=== PATIENT | female | born 1930 | race Caucasian/White ===

== ENCOUNTER 2017-08-03 15:48 | Emergency (ER) | payer MEDICARE ==
[2017-08-03 15:50] VITALS: BP 163/75; PULSE 89; RESP 18; TEMP 98.3; O2SAT 94
[2017-08-03] MEDS ORDERED: CYCL1TAB29 PO (15:56)
[2017-08-03] MEDS ORDERED: AMLO5TAB2 PO (15:56)
[2017-08-03] MEDS ORDERED: VITATAB43 PO (15:56)
[2017-08-03] MEDS ORDERED: FERR325C PO (15:56)
[2017-08-03] MEDS ORDERED: HYDR-3516 PO (15:56)
[2017-08-03] MEDS ORDERED: ATEN50TA7 PO (15:56)
[2017-08-03] MEDS ORDERED: OMEP20TA PO (15:56)
[2017-08-03] MEDS ORDERED: SIMV20TA PO (15:56)
[2017-08-03] MEDS ORDERED: ULTR50TA5 PO (15:56)
[2017-08-03] MEDS ORDERED: FISHCAP4 PO (15:56)
[2017-08-03] MEDS ORDERED: CALC1TAB12 PO (15:56)
--- NOTE | 2017-08-03 16:07 | PD ---
HPI Chief Complaint: Pain: Acute or Chronic Time Seen by Provider: 16:05 Travel History International Travel<30 days: No Contact w/Intl Traveler<30days: No Traveled to known affect area: No History of Present Illness HPI This is an 87-year-old female with history of chronic back pain or presents via EMS for evaluation of back pain. She reports over the past 2 weeks she has had worsening spasming type pain in her mid and lower back. The pain is constant, worse with movement. Her primary care physician Dr. Cook prescribed her Lortab and Flexeril however the symptoms have persisted with minimal relief from these medications. She was referred to paint and table ed[facility] Dr. Malin, had an appointment today, but the pain was so severe that she decided to come here instead. She denies any injuries. Denies any chest pain, abdominal pain, incontinence, radicular symptoms. She reports that she had x- rays at her primary care physician's office one week ago and they were reportedly without acute abnormality. No other complaints. PFSH Past Medical History High Cholesterol: Yes GERD: Yes Hypertension: Yes Social History Alcohol Use: Yes (OCASSIONALY) Tobacco Use: No Substance Use: No Allergies-Medications (Allergen,Severity, Reaction): Coded Allergies: No Known Allergies (Verified Allergy, Unknown, 08/03/17) Reported Meds & Prescriptions Reported Meds & Active Scripts Active Walker/Adult/Folding (Device) 1 Mis Mis Ea .ROUTE DIRECTED Naproxen 500 Mg Tab 500 Mg PO BID 10 Days Lidocaine Patch 12 HR (Lidocaine) 5 % Patch 1 Patch TOPICAL DAILY PRN Remove patch after 12 hours Lortab (Hydrocodone-Acetaminophen) 5-325 Mg Tab 1 Tab PO Q6H PRN Reported Vitamin H61-Lrdbv Acid (Cobalamine Combinations) 500-400 Mcg Tab 1 Tab PO DAILY Iron (Ferrous Sulfate) 325 Mg Cap 325 Mg PO DAILY Calcium 500 +D (Calcium Carbonate-Cholecalciferol) 500-400 Mg-Unit Tab 1 Tab PO DAILY Fish Oil + D3 (Fish Oil-Cholecalciferol) 1,200-1,000 Mg-Unit Cap 1 Cap PO DAILY Omeprazole 20 Mg Tab 20 Mg PO DAILY Simvastatin 20 Mg Tab 20 Mg PO DAILY Amlodipine (Amlodipine Besylate) 5 Mg Tab 5 Mg PO DAILY Atenolol-Chlorthalidone 50-25 Mg Tab 0.5 Tab PO DAILY Ultram (Tramadol HCl) 50 Mg Tab 50 Mg PO Q4H PRN Flexeril (Cyclobenzaprine HCl) 10 Mg Tab 10 Mg PO TID Hydrocodone-Acetaminophen 5-325 mg Tab 1 Tab PO Q4H PRN Review of Systems Except as stated in HPI: all other systems reviewed are Neg Physical Exam Narrative GENERAL: Well-developed well-nourished female in no acute distress. SKIN: Warm and dry. HEAD: Atraumatic. Normocephalic. EYES: Pupils equal and round. No scleral icterus. No injection or drainage. ENT: No nasal bleeding or discharge. Mucous membranes pink and moist. NECK: Trachea midline. No JVD. CARDIOVASCULAR: Regular rate and rhythm. No murmur appreciated. RESPIRATORY: No accessory muscle use. Clear to auscultation. Breath sounds equal bilaterally. GASTROINTESTINAL: Abdomen soft, non-tender, nondistended. Hepatic and splenic margins not palpable. MUSCULOSKELETAL: No obvious deformities there is some tenderness to palpation of the paravertebral musculature of the thoracic and lumbar spine. The patient intends 5 out of 5 muscle strength in lower extremities bilaterally. There is no CVA tenderness. NEUROLOGICAL: Awake and alert. No obvious cranial nerve deficits. Motor grossly within normal limits. Normal speech. PSYCHIATRIC: Appropriate mood and affect; insight and judgment normal. Data Data Last Documented VS Vital Signs Date Time Temp Pulse Resp B/P (MAP) Pulse Ox O2 Delivery O2 Flow Rate FiO2 08/03/17 15:50 98.3 89 18 163/75 (104) 94 Orders Orders Complete Blood Count With Diff (08/03/17 16:14) Basic Metabolic Panel (Bmp) (08/03/17 16:14) Morphine Inj (Morphine Inj) (08/03/17 16:15) Ondansetron Inj (Zofran Inj) (08/03/17 16:15) Ketorolac Inj (Toradol Inj) (08/03/17 16:15) Iv Access Insert/Monitor (08/03/17 16:14) Ecg Monitoring (08/03/17 16:14) Sodium Chlor 0.9% 1000 Ml Inj (Ns 1000 M (08/03/17 16:39) Labs Laboratory Tests Test 08/03/17 16:20 White Blood Count 7.4 TH/MM3 Red Blood Count 2.96 MIL/MM3 Hemoglobin 9.0 GM/DL Hematocrit 26.9 % Mean Corpuscular Volume 91.1 FL Mean Corpuscular Hemoglobin 30.6 PG Mean Corpuscular Hemoglobin Concent 33.6 % Red Cell Distribution Width 12.6 % Platelet Count 166 TH/MM3 Mean Platelet Volume 8.8 FL CBC Comment AUTO DIFF Blood Urea Nitrogen 24 MG/DL Creatinine 0.98 MG/DL Random Glucose 113 MG/DL Calcium Level 9.2 MG/DL Sodium Level 130 MEQ/L Potassium Level 3.6 MEQ/L Chloride Level 96 MEQ/L Carbon Dioxide Level 24.7 MEQ/L Anion Gap 9 MEQ/L Estimat Glomerular Filtration Rate 54 ML/MIN MDM Medical Decision Making Medical Screen Exam Complete: Yes Emergency Medical Condition: Yes Medical Record Reviewed: Yes Differential Diagnosis Back spasm, compression fracture, AAA, muscle strain, renal stone Narrative Course 87-year-old female with chronic back pain presents with spasming type pain in her mid and lower back for the past 2 weeks, unrelieved with Lortab and Flexeril prescriptions given by her primary care physician. She went to [facility] and table [employer] Dr. Malin today however the pain was so severe that she decided to come here via EMS. Physical examination and history are reassuring. She has no lower extremity weakness. Her abdomen is soft and nontender. She reportedly had x-rays as an outpatient one week ago which revealed no acute abnormalities. The patient will be treated symptomatically and monitored closely. The patient's laboratory is been reviewed. Her hemoglobin is 9.0, she reports a history of chronic anemia and she has no symptoms to suggest acute anemia. Her sodium was 1:30, chloride 96, BUN 24 therefore 1 L IV normal saline has been ordered. Upon reexamination pain is significantly improved, currently 1 out of 10. At this point, plan is to immediately patient and if successful she will be discharged in the care of her family members with a short course of Lortab as well as Lidoderm patches, naproxen, Walker prescription. Recommend follow-up with her primary care physician, return for worsening symptoms. She is agreeable with this plan. Diagnosis Primary Impression: Back pain Qualified Codes: M54.9 - Dorsalgia, unspecified; G89.29 - Other chronic pain Additional Instructions: Medication as needed. Do not drive or drink alcohol when taking Lortab. Avoid strenuous activity. Follow-up with primary care physician next week. Return for any emergent medical conditions. Med/Other Pt SpecificInfo: Prescription(s) given Scripts Walker/Adult/Folding (Walker/Adult/Folding) 1 Mis Mis EA .ROUTE DIRECTED, #1 0 Refills Prov: Marcellus Greer MD 08/03/17 Naproxen (Naproxen) 500 Mg Tab 500 MG PO BID for 10 Days, #20 TAB 0 Refills Prov: Marcellus Greer MD 08/03/17 Lidocaine Patch 12 HR (Lidocaine Patch 12 HR) 5 % Patch 1 PATCH TOPICAL DAILY Y for PAIN, #1 BOX 1 Refill Remove patch after 12 hours Prov: Marcellus Greer MD 08/03/17 Hydrocodone-Acetaminophen (Lortab) 5-325 Mg Tab 1 TAB PO Q6H Y for PAIN, #15 TAB 0 Refills Prov: Marcellus Greer MD 08/03/17 Disposition: 01 DISCHARGE HOME Condition: Stable Kenneth Garcia Aug 03, 2017 16:07
[2017-08-03] MEDS ORDERED: ONDANSETRON HCL 4 MG/2 ML VIAL IV PUSH ONE (16:15)
[2017-08-03] MEDS ORDERED: MORPHINE SULFATE 4 MG/ML INJ IV PUSH ONE (16:15)
[2017-08-03] MEDS ORDERED: KETOROLAC TROMETHAMINE 30 MG/ML (IVP) VIAL IV PUSH ONE (16:15)
[2017-08-03 16:34] LABS: HEMATOCRIT 26.9 % (35.0-46.0); MEAN CELL VOLUME 91.1 FL (80.0-100.0); MEAN CORPUSCULAR HEMOGLOBIN 30.6 PG (27.0-34.0); MEAN CORPUSCULAR HGB CONC 33.6 % (32.0-36.0); PLATELET COUNT 166 TH/MM3 (150-450); RED BLOOD COUNT 2.96 MIL/MM3 (4.00-5.30); RED CELL DISTRIBUTION WIDTH 12.6 % (11.6-17.2); WHITE BLOOD COUNT 7.4 TH/MM3 (4.0-11.0)
[2017-08-03 16:35] LABS: POTASSIUM 3.6 MEQ/L (3.5-5.1)
[2017-08-03 16:38] LABS: BICARBONATE 24.7 MEQ/L (21.0-32.0)
[2017-08-03] MEDS ORDERED: SODIUM CHLOR 0.9% 1000 ML INJ 1,000 ML IV SCH (16:39)
[2017-08-03 16:45] LABS: HEMO FLAGS AUTO DIFF
[2017-08-03] MEDS ORDERED: LIDO1PAD52 TOPICAL (17:07)
[2017-08-03] MEDS ORDERED: HYDR-3533 PO (17:07)
[2017-08-03] MEDS ORDERED: WALKER/ADULT/FO1 MIS (17:07)
[2017-08-03] MEDS ORDERED: NAPR500T PO (17:07)
[2017-08-03 17:33] LABS: EOSINOPHILS 1 % (0-4); NEUTROPHIL # MANUAL DIFF 3.6 TH/MM3 (1.8-7.7); POLYS (SEG NEUTROPHILS) 48 % (16-70); WBC DIFF SAMPLE 100
[2017-08-03 17:35] LABS: OVALOCYTES 1+ (NORMAL)
[2017-08-03 17:36] LABS: PLATELET ESTIMATE SMEAR NORMAL (NORMAL); PLATELET MORPHOLOGY NORMAL (NORMAL); SCAN/DIFF FINAL DIFF MANUAL
== END 2017-08-03 17:36 | disposition home or self-care (01) ==
LOC: PHEFT 15:48 → PHED 17:36
DX: M54.9 Dorsalgia, unspecified (principal); G89.29 Other chronic pain; E78.00 Pure hypercholesterolemia, unspecified; I10 Essential (primary) hypertension; K21.9 Gastro-esophageal reflux disease without esophagitis
CPT/HCPCS: 80048; 85007; 85027; 96374; 96375; 99284; J1885; J2270; J2405; J7030

== ENCOUNTER 2017-08-07 17:03 | Inpatient (IN) | payer MEDICARE ==
[2017-08-07] VITALS (9 sets, daily range): BP systolic 78–125; BP diastolic 38–59; PULSE 79–99; RESP 16–20; TEMP 97.5–98.4; O2SAT 96–99
[~2017-08-07 17:03] MED LIST: AMLO5TAB2 PO; ATEN50TA7 PO; CALC1TAB12 PO; CYCL1TAB29 PO; FERR325C PO; FISHCAP4 PO; HYDR-3516 PO; HYDR-3533 PO; LIDO1PAD52 TOPICAL; NAPR500T PO; OMEP20TA PO; SIMV20TA PO; ULTR50TA5 PO; VITATAB43 PO; WALKER/ADULT/FO1 MIS
[2017-08-07] MEDS ORDERED: MORP1TAB24 PO (17:19)
[2017-08-07] MEDS ORDERED: SODIUM CHLOR 0.9% 1000 ML INJ 1,000 ML IV SCH (17:51)
--- NOTE | 2017-08-07 17:57 | PD ---
HPI Chief Complaint: Pain: Acute or Chronic Time Seen by Provider: 17:28 Travel History International Travel<30 days: No Contact w/Intl Traveler<30days: No Traveled to known affect area: No History of Present Illness HPI 87-year-old female with history of chronic back pain or presents via EMS for evaluation of back pain. Patient brought in for back pain however, niece is here and concerned about altered mental status and disorientation. Patient has apparently received 2 doses of morphine today. She complained of extreme pain and exhibited weakness as described by her niece today. Apparently she was not able to tell her niece the proper time or place. After interviewing the patient she was complaining of right hip pain which has been chronic previously. She could do not tell me when her last bowel movement was but she urinated once yesterday and none today. Niece tells me that she has not been eating or drinking properly. She denies fever, chills, chest pain, shortness of breath, jaw pain, or pain. She denies hematochezia, melena, hematemesis Her primary care physician Dr. Cook. [facility] Past Medical History High Cholesterol: Yes GERD: Yes Hypertension: Yes Social History Alcohol Use: Yes (OCASSIONALY) Tobacco Use: No Substance Use: No Allergies-Medications (Allergen,Severity, Reaction): Coded Allergies: No Known Allergies (Verified Allergy, Unknown, 08/07/17) Reported Meds & Prescriptions Reported Meds & Active Scripts Active Walker/Adult/Folding (Device) 1 Mis Mis Ea .ROUTE DIRECTED Naproxen 500 Mg Tab 500 Mg PO BID 10 Days Lidocaine Patch 12 HR (Lidocaine) 5 % Patch 1 Patch TOPICAL DAILY PRN Remove patch after 12 hours Lortab (Hydrocodone-Acetaminophen) 5-325 Mg Tab 1 Tab PO Q6H PRN Reported Morphine ER (Morphine Sulfate) 15 Mg Tab 15 Mg PO BID Vitamin E04-Osczd Acid (Cobalamine Combinations) 500-400 Mcg Tab 1 Tab PO DAILY Iron (Ferrous Sulfate) 325 Mg Cap 325 Mg PO DAILY Calcium 500 +D (Calcium Carbonate-Cholecalciferol) 500-400 Mg-Unit Tab 1 Tab PO DAILY Fish Oil + D3 (Fish Oil-Cholecalciferol) 1,200-1,000 Mg-Unit Cap 1 Cap PO DAILY Omeprazole 20 Mg Tab 20 Mg PO DAILY Simvastatin 20 Mg Tab 20 Mg PO DAILY Amlodipine (Amlodipine Besylate) 5 Mg Tab 5 Mg PO DAILY Atenolol-Chlorthalidone 50-25 Mg Tab 0.5 Tab PO DAILY Ultram (Tramadol HCl) 50 Mg Tab 50 Mg PO Q4H PRN Flexeril (Cyclobenzaprine HCl) 10 Mg Tab 10 Mg PO TID Hydrocodone-Acetaminophen 5-325 mg Tab 1 Tab PO Q4H PRN Review of Systems Except as stated in HPI: all other systems reviewed are Neg Physical Exam Narrative GENERAL: Well-developed well-nourished hard of hearing SKIN: Focused skin assessment warm/dry. HEAD: Atraumatic. Normocephalic. EYES: Pupils equal and round. No scleral icterus. No injection or drainage. ENT: No nasal bleeding or discharge. Mucous membranes: Tongue with white plaques, no other lesions present. dry mucous membranes NECK: Trachea midline. No JVD. CARDIOVASCULAR: Regular rate and rhythm. No murmur appreciated. RESPIRATORY: No accessory muscle use. Clear to auscultation. Breath sounds equal bilaterally. GASTROINTESTINAL: Abdomen soft, mildly tender to palpation , nondistended. Hepatic and splenic margins not palpable. MUSCULOSKELETAL: No obvious deformities. No clubbing. No cyanosis. No edema. TTP to right lumbar and SI joint NEUROLOGICAL: Awake and alert. No obvious cranial nerve deficits. Motor grossly within normal limits. Normal speech. Data Data Last Documented VS Vital Signs Date Time Temp Pulse Resp B/P (MAP) Pulse Ox O2 Delivery O2 Flow Rate FiO2 08/07/17 19:38 92 16 111/58 (75) 96 Room Air 08/07/17 17:10 98.4 Orders Orders Electrocardiogram (08/07/17 17:51) Complete Blood Count With Diff (08/07/17 17:51) Comprehensive Metabolic Panel (08/07/17 17:51) Creatine Kinase (Cpk) (08/07/17 17:51) Prothrombin Time / Inr (Pt) (08/07/17 17:51) Act Partial Throm Time (Ptt) (08/07/17 17:51) Troponin I (08/07/17 17:51) Urinalysis - C+S If Indicated (08/07/17 17:51) Chest, Single Ap (08/07/17 17:51) Blood Glucose (08/07/17 17:51) Ecg Monitoring (08/07/17 17:51) Iv Access Insert/Monitor (08/07/17 17:51) Oximetry (08/07/17 17:51) Sodium Chloride 0.9% Flush (Ns Flush) (08/07/17 18:00) Sodium Chlor 0.9% 1000 Ml Inj (Ns 1000 M (08/07/17 17:51) Drug Screen, Random Urine (08/07/17 17:51) Hip, Uni(Ap&Lat) W Ap Pelvis (08/07/17 ) Urinary Catheter Insert/Apply (08/07/17 19:52) Admit Order (Ed Use Only) (08/07/17 ) Ct Brain W/O Iv Contrast(Rout) (08/07/17 ) Ct Abd/Pel W/O Iv Contrast (08/07/17 ) Labs Laboratory Tests Test 08/07/17 15:30 08/07/17 19:33 White Blood Count 14.4 TH/MM3 Red Blood Count 2.55 MIL/MM3 Hemoglobin 8.0 GM/DL Hematocrit 22.9 % Mean Corpuscular Volume 89.9 FL Mean Corpuscular Hemoglobin 31.3 PG Mean Corpuscular Hemoglobin Concent 34.8 % Red Cell Distribution Width 12.9 % Platelet Count 160 TH/MM3 Mean Platelet Volume 9.0 FL CBC Comment AUTO DIFF Differential Total Cells Counted 100 Neutrophils % (Manual) 64 % Lymphocytes % 14 % Monocytes % 22 % Neutrophils # (Manual) 9.2 TH/MM3 Differential Comment FINAL DIFF MANUAL Atypical Lymphocytes % Platelet Estimate LOW Platelet Morphology Comment NORMAL Red Cell Morphology Comment NORMAL Prothrombin Time 11.5 SEC Prothromb Time International Ratio 1.0 RATIO Activated Partial Thromboplast Time 35.8 SEC Blood Urea Nitrogen 79 MG/DL Creatinine 2.90 MG/DL Random Glucose 78 MG/DL Total Protein 6.9 GM/DL Albumin 3.0 GM/DL Calcium Level 8.6 MG/DL Alkaline Phosphatase 91 U/L Aspartate Amino Transf (AST/SGOT) 12 U/L Alanine Aminotransferase (ALT/SGPT) 12 U/L Total Bilirubin 0.8 MG/DL Sodium Level 134 MEQ/L Potassium Level 3.6 MEQ/L Chloride Level 100 MEQ/L Carbon Dioxide Level 19.8 MEQ/L Anion Gap 14 MEQ/L Estimat Glomerular Filtration Rate 15 ML/MIN Total Creatine Kinase 57 U/L Troponin I LESS THAN 0.02 NG/ML Urine Collection Type CATH Urine Color ATUL Urine Turbidity SLIGHT Urine pH 5.0 Urine Specific [place] 1.019 Urine Protein 30 mg/dL Urine Glucose (UA) NEG mg/dL Urine Ketones 15 mg/dL Urine Occult Blood SMALL Urine Nitrite NEG Urine Bilirubin NEG Urine Leukocyte Esterase TRACE Urine RBC 4-9 /hpf Urine WBC 0-2 /hpf Urine Squamous Epithelial Cells 0-5 /hpf Urine Amorphous Sediment MOD Urine Hyaline Casts 6-9 /lpf Urine Coarse Granular Casts 3-5 /lpf Urine Mucus MOD /lpf Microscopic Urinalysis Comment CATH-CULT NOT IND Urine Opiates Screen POS Urine Barbiturates Screen NEG Urine Amphetamines Screen NEG Urine Benzodiazepines Screen NEG Urine Cocaine Screen NEG Urine Cannabinoids Screen NEG MDM Medical Decision Making Medical Screen Exam Complete: Yes Emergency Medical Condition: Yes Differential Diagnosis Altered mental status: Drug induced versus sepsis versus dehydration Narrative Course 87-year-old female brought by EMS for back pain however she is being evaluated for altered mental status. Niece has been available to answer questions today. BP improved with fluid challenge 1000cc. EKG did not demonstrate an acute process. Images report not available as of admission time. Labs: Leukocyte esterase, RBCs, in urine., RYLAN, anemia (Chronic?) Oral candidiasis found incidentally upon exam. Pt has acute kidney injury, altered mental status and will be admitted. I discussed this case with my attending, Dr Richards. I spoke with Dr. Cook, her PCP, and he knows this patient well. He agrees to admit pt to service. Diagnosis Primary Impression: Oral candidiasis Additional Impressions: Acute kidney injury superimposed on chronic kidney disease Anemia Qualified Codes: D64.9 - Anemia, unspecified Altered mental status Qualified Codes: R41.82 - Altered mental status, unspecified Intractable low back pain Admitting Information Admitting Physician Requests: Admit Marilee David Aug 07, 2017 17:57
[2017-08-07] MEDS ORDERED: SODIUM CHLORIDE 0.9% FLUSH 5 ML FLUSH IV FLUSH PRN (18:00)
[2017-08-07 18:11] LABS: HEMATOCRIT 22.9 % (35.0-46.0); MEAN CELL VOLUME 89.9 FL (80.0-100.0); MEAN CORPUSCULAR HEMOGLOBIN 31.3 PG (27.0-34.0); MEAN CORPUSCULAR HGB CONC 34.8 % (32.0-36.0); PLATELET COUNT 160 TH/MM3 (150-450); RED BLOOD COUNT 2.55 MIL/MM3 (4.00-5.30); RED CELL DISTRIBUTION WIDTH 12.9 % (11.6-17.2); WHITE BLOOD COUNT 14.4 TH/MM3 (4.0-11.0)
[2017-08-07 18:23] LABS: POTASSIUM 3.6 MEQ/L (3.5-5.1); SODIUM (NA) 134 MEQ/L (136-145)
[2017-08-07 18:24] LABS: CHLORIDE 100 MEQ/L (98-107)
[2017-08-07 18:27] LABS: ANION GAP 14 MEQ/L (5-15); BICARBONATE 19.8 MEQ/L (21.0-32.0)
[2017-08-07 18:28] LABS: BLOOD UREA NITROGEN 79 MG/DL (7-18)
[2017-08-07 18:29] LABS: APTT (PATIENT) 35.8 SEC (24.3-30.1); PROTHROMBIN TIME - PATIENT 11.5 SEC (9.8-11.6)
[2017-08-07 18:30] LABS: ALT (GPT) 12 U/L (10-53); AST (GOT) 12 U/L (15-37)
[2017-08-07 18:31] LABS: GLOMERULAR FILTRATION RATE 15 ML/MIN (>89)
[2017-08-07 18:32] LABS: TOTAL BILIRUBIN ADULT 0.8 MG/DL (0.2-1.0)
[2017-08-07 18:33] LABS: ALKALINE PHOSPHATASE 91 U/L (45-117)
[2017-08-07 18:38] LABS: HEMO FLAGS AUTO DIFF
[2017-08-07 18:45] LABS: CREATINE KINASE 57 U/L (26-192)
[2017-08-07 19:22] LABS: NEUTROPHIL # MANUAL DIFF 9.2 TH/MM3 (1.8-7.7); POLYS (SEG NEUTROPHILS) 64 % (16-70); WBC DIFF SAMPLE 100
[2017-08-07 19:23] LABS: PLATELET ESTIMATE SMEAR LOW (NORMAL); PLATELET MORPHOLOGY NORMAL (NORMAL); SCAN/DIFF FINAL DIFF MANUAL
[2017-08-07 19:39] LABS: BLOOD, URINE SMALL (NEG); GLUCOSE,URINE NEG (NEG); KETONE, URINE 15 mg/dL (NEG); NITRITE,URINE NEG (NEG)
[2017-08-07 19:56] LABS: METHOD OF COLLECTION CATH; URINE COLOR AMBER (YELLW/STRAW)
[2017-08-07 19:57] LABS: MUCUS URINE MOD /lpf (OCC)
[2017-08-07 19:58] LABS: COMMENT (UR) CATH-CULT NOT IND; CULTURE IF INDICATED CATH CULTURE NOT IND; SQUAMOUS EPITHELIAL CELL URINE 0-5 /hpf (0-5); WBC, URINE 0-2 /hpf (0-5)
--- NOTE | 2017-08-07 21:17 | HHI.HP ---
HPI Service [facility] Hospitalists Primary Care Physician Noe Cook MD, PhD Admission Diagnosis RYLAN, Altered mental status. Chief Complaint: Low back pain, general weakness, altered mentation Travel History International Travel<30 Days: No Contact w/Intl Traveler <30 Da: No Traveled to Known Affected Are: No History of Present Illness 87-year-old female well-known to me with history of chronic low back pain presents via EMS for evaluation of back pain. Patient brought in primarily for back pain, however, niece is here and concerned about altered mental status and disorientation. Patient has apparently received 2 doses of morphine extended release 15 mg today which was started yesterday by me due to intractable back pain. She was in her pain management doctor's office this past Sunday and complained of extreme pain in lower back. From there she was transported to the ER where she received IV morphine with some relief. Niece reports that she has not been eating or drinking properly over the last few days due to pain and just "sitting on the couch". She denies fever, chills, chest pain, shortness of breath, jaw pain. She denies hematochezia, melena, hematemesis. She has been taking some naproxen at home. 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 Her primary care physician Dr. Cook. ER evaluation noted for somewhat low systolic pressures in the 80s which have responded to IV fluid bolus and are now in the 110s. Patient initially was somewhat slow to respond but since her pressures are improving with IV fluid and her mentation is also improving. Lab evaluation noted for hemoglobin of 8, white blood cell count 14,000, BUNs 79 and creatinine of 2.9. Her baseline creatinine is usually around 0.9. Baseline hemoglobin is around 10-1/2. Urinalysis noted for some blood and mucus but no obvious bacteria. Imaging is pending. Review of Systems ROS Limitations: Clinical Condition, Altered Mental Status Constitutional: COMPLAINS OF: Fatigue, Dizziness Respiratory: DENIES: Apneas, Cough, Snoring, Wheezing, Hemoptysis, Sputum production, Shortness of breath Cardiovascular: DENIES: Chest pain, Palpitations, Syncope, Dyspnea on Exertion , PND, Lower Extremity Edema, Orthopnea, Claudication Gastrointestinal: DENIES: Abdominal pain, Black stools, Bloody stools, BRB per rectum, Constipation, Diarrhea, GERD, Nausea, Reflux, Vomiting, Difficulty Swallowing, Anorexia, See HPI Musculoskeletal: COMPLAINS OF: Joint pain, Back pain Neurologic: COMPLAINS OF: Poor Balance Past Family Social History Past Medical History Chronic anemia Aortic stenosis Dunn's esophagus Chronic disease stage III with baseline creatinine usually around 0.9 Gastric ulcer Hyperlipidemia Hypertension Lumbar degenerative disc disease with spinal stenosis Osteoporosis B12 deficiency Past Surgical History Colonoscopy and EGD done in July 2016 Reported Medications Walker/Adult/Folding (Device) 1 Mis Mis Ea .ROUTE DIRECTED Naproxen 500 Mg Tab 500 Mg PO BID 10 Days Lidocaine Patch 12 HR (Lidocaine) 5 % Patch 1 Patch TOPICAL DAILY PRN Remove patch after 12 hours Morphine ER (Morphine Sulfate) 15 Mg Tab 15 Mg PO BID Vitamin K51-[id number] Acid (Cobalamine Combinations) 500-400 Mcg Tab 1 Tab PO DAILY Iron (Ferrous Sulfate) 325 Mg Cap 325 Mg PO DAILY Calcium 500 +D (Calcium Carbonate-Cholecalciferol) 500-400 Mg-Unit Tab 1 Tab PO DAILY Fish Oil + D3 (Fish Oil-Cholecalciferol) 1,200-1,000 Mg-Unit Cap 1 Cap PO DAILY Omeprazole 20 Mg Tab 20 Mg PO DAILY Simvastatin 20 Mg Tab 20 Mg PO DAILY Amlodipine (Amlodipine Besylate) 5 Mg Tab 5 Mg PO DAILY Atenolol-Chlorthalidone 50-25 Mg Tab 0.5 Tab PO DAILY Flexeril (Cyclobenzaprine HCl) 10 Mg Tab 10 Mg PO TID Hydrocodone-Acetaminophen 5-325 mg Tab 1 Tab PO Q4H PRN Allergies: Coded Allergies: No Known Allergies (Verified Allergy, Unknown, 08/07/17) Family History Noncontributory Social History She drinks alcohol usually one beer per day but has not been drinking much of any fluid in the last few days No tobacco since 1973 prior "one pack per day for 20 years The window since 1983 and lives alone. She has family in the area that check on her daily. 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 Lying flat in exam bed. She does grimace if I ask her to turn or move to one side. She recognizes me but is a bit confused about events leading up to her ER visit. SKIN: Cool and dry. HEAD: Atraumatic. Normocephalic. No temporal or scalp tenderness. EYES: Pupils equal round and reactive. Extraocular motions intact. No scleral icterus. No injection or drainage. ENT: Nose without bleeding, purulent drainage or septal hematoma. Airway patent. NECK: Trachea midline. No JVD or lymphadenopathy. Supple, nontender, no meningeal signs. CARDIOVASCULAR: Regular rate and rhythm without gallops or rubs. 2/6 systolic ejection murmur best heard in aortic space. RESPIRATORY: Clear to auscultation. Breath sounds equal bilaterally. No wheezes , rales, or rhonchi. GASTROINTESTINAL: Abdomen soft, non-tender, nondistended. No hepato-splenomegaly , or palpable masses. No guarding. MUSCULOSKELETAL: Extremities without clubbing, cyanosis, or edema. Positive straight leg test on the left. Tenderness to palpation over right trochanteric bursa. No calf tenderness. NEUROLOGICAL: Awake and alert. Cranial nerves II through XII intact. Motor and sensory grossly within normal limits. Five out of 5 muscle strength in all muscle groups. Speech somewhat delayed. Laboratory Laboratory Tests Test 08/07/17 15:30 08/07/17 19:33 White Blood Count 14.4 Red Blood Count 2.55 Hemoglobin 8.0 Hematocrit 22.9 Mean Corpuscular Volume 89.9 Mean Corpuscular Hemoglobin 31.3 Mean Corpuscular Hemoglobin Concent 34.8 Red Cell Distribution Width 12.9 Platelet Count 160 Mean Platelet Volume 9.0 CBC Comment AUTO DIFF Differential Total Cells Counted 100 Neutrophils % (Manual) 64 Lymphocytes % 14 Monocytes % 22 Neutrophils # (Manual) 9.2 Differential Comment FINAL DIFF MANUAL Atypical Lymphocytes Platelet Estimate LOW Platelet Morphology Comment NORMAL Red Cell Morphology Comment NORMAL Prothrombin Time 11.5 Prothromb Time International Ratio 1.0 Activated Partial Thromboplast Time 35.8 Blood Urea Nitrogen 79 Creatinine 2.90 Random Glucose 78 Total Protein 6.9 Albumin 3.0 Calcium Level 8.6 Alkaline Phosphatase 91 Aspartate Amino Transf (AST/SGOT) 12 Alanine Aminotransferase (ALT/SGPT) 12 Total Bilirubin 0.8 Sodium Level 134 Potassium Level 3.6 Chloride Level 100 Carbon Dioxide Level 19.8 Anion Gap 14 Estimat Glomerular Filtration Rate 15 Total Creatine Kinase 57 Troponin I LESS THAN 0.02 Urine Collection Type CATH Urine Color ATUL Urine Turbidity SLIGHT Urine pH 5.0 Urine Specific [place] 1.019 Urine Protein 30 Urine Glucose (UA) NEG Urine Ketones 15 Urine Occult Blood SMALL Urine Nitrite NEG Urine Bilirubin NEG Urine Leukocyte Esterase TRACE Urine RBC 4-9 Urine WBC 0-2 Urine Squamous Epithelial Cells 0-5 Urine Amorphous Sediment MOD Urine Hyaline Casts 6-9 Urine Coarse Granular Casts 3-5 Urine Mucus MOD Microscopic Urinalysis Comment CATH-CULT NOT IND Urine Opiates Screen POS Urine Barbiturates Screen NEG Urine Amphetamines Screen NEG Urine Benzodiazepines Screen NEG Urine Cocaine Screen NEG Urine Cannabinoids Screen NEG Result Diagram: 08/07/17 15308/07/171529 Caprini VTE Risk Assessment Caprini VTE Risk Assessment: Mod/High Risk (score >= 2) VTE Pharm Contraindication: High risk for bleeding Caprini Risk Assessment Model Point Value = 1 Point Value = 2 Point Value = 3 Point Value = 5 Age 41-60 Minor surgery BMI > 25 kg/m2 Swollen legs Varicose veins or History of unexplained or recurrent spontaneous Oral contraceptives or hormone replacement Sepsis (< 1 month) Serious lung disease, including pneumonia (< 1 month) Abnormal pulmonary function Acute myocardial infarction Congestive heart failure (< 1 month) History of inflammatory bowel disease Medical patient at bed rest Age 61-74 Arthroscopic surgery Major open surgery (> 45 min) Laparoscopic surgery (> 45 min) Malignancy Confined to bed (> 72 hours) Immobilizing plaster cast Central venous access Age >= 75 History of VTE Family history of VTE Factor V Leiden Prothrombin [id number] Lupus anticoagulant Anticardiolipin antibodies Elevated serum homocysteine Heparin-induced thrombocytopenia Other congenital or acquired thrombophilia Stroke (< 1 month) Elective arthroplasty Hip, pelvis, or leg fracture Acute spinal cord injury (< 1 month) Prophylaxis Regimen Total Risk Factor Score Risk Level Prophylaxis Regimen 0-1 Low Early ambulation 2 Moderate Order ONE of the following: *Sequential Compression Device (SCD) *Heparin 5000 units SQ BID 3-4 Higher Order ONE of the following medications: *Heparin 5000 units SQ TID *Enoxaparin/Lovenox 40 mg SQ daily (WT < 150 kg, CrCl > 30 mL/min) *Enoxaparin/Lovenox 30 mg SQ daily (WT < 150 kg, CrCl > 10-29 mL/min) *Enoxaparin/Lovenox 30 mg SQ BID (WT < 150 kg, CrCl > 30 mL/min) AND/OR *Sequential Compression Device (SCD) 5 or more Highest Order ONE of the following medications: *Heparin 5000 units SQ TID (Preferred with Epidurals) *Enoxaparin/Lovenox 40 mg SQ daily (WT < 150 kg, CrCl > 30 mL/min) *Enoxaparin/Lovenox 30 mg SQ daily (WT < 150 kg, CrCl > 10-29 mL/min) *Enoxaparin/Lovenox 30 mg SQ BID (WT < 150 kg, CrCl > 30 mL/min) AND *Sequential Compression Device (SCD) Assessment and Plan Problem List: (1) Altered mental status ICD Codes: R41.82 - Altered mental status, unspecified Plan: Likely multifactorial associated with dehydration, pain medication and azotemia. Her mental status is improving with hydration. We'll continue hydration. CT brain pending. (2) Intractable low back pain ICD Codes: M54.5 - Low back pain Status: Acute Plan: Patient has chronic low back pain but over the last few weeks and it has been worsening. She has failed outpatient tramadol, IM Toradol, Lortab. Morphine extended release was therefore added yesterday and likely is partly contributing to her altered mentation and low blood pressure. We'll attempt to manage her pain as best we can without contributing to further decline in her mental status or vascular support. Patient reports that pain is tolerable as long as she is not twisting or moving. Twisting or moving motions tend to cause spasm. We'll check MRI of L-spine (3) Lumbar spinal stenosis ICD Codes: M48.061 - Spinal stenosis, lumbar region without neurogenic claudication Status: Chronic Plan: As above. We'll attempt to manage pain. No significant focal weakness of lower extremities. (4) Hypertension ICD Codes: I10 - Essential (primary) hypertension Status: Chronic Plan: Hold medication at this point. (5) Anemia ICD Codes: D64.9 - Anemia, unspecified Status: Chronic Plan: Baseline hemoglobin generally around 10.5. 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 She notes that she has used naproxen at home and given her mentation she may of been taking more than she is reporting. We'll follow hemoglobin closely. Vitals stable at this point. (6) Acute kidney injury superimposed on chronic kidney disease ICD Codes: N17.9 - Acute kidney failure, unspecified; N18.9 - Chronic kidney disease, unspecified Status: Acute Plan: Creatinine generally around 0.9. Provide IV fluids. Recheck tomorrow morning. Code Status full Discussed Condition With patient, her niece, ER provider Physician Certification 2 Midnight Certification Type: Admission for Inpatient Services Order for Inpatient Services The services are ordered in accordance with Medicare regulations or non- Medicare payer requirements, as applicable. In the case of services not specified as inpatient-only, they are appropriately provided as inpatient services in accordance with the 2-midnight benchmark. Estimated LOS (days): 3 days is the estimated time the patient will need to remain in the hospital, assuming treatment plan goals are met and no additional complications. Post-Hospital Plan: Not yet determined Problem Qualifiers (1) Altered mental status: Qualified Codes: R41.0 - Disorientation, unspecified (2) Hypertension: Qualified Codes: I10 - Essential (primary) hypertension (3) Anemia: Noe Cook MD PhD Aug 07, 2017 21:17
--- NOTE | 2017-08-07 21:20 | RADRPT ---
EXAM DATE/TIME: 08/07/2017 20:21 [facility] COMPARISON: No previous studies available for comparison. INDICATIONS : Weakness. MEDICAL HISTORY : Hypertension. Hypercholesterolemia. SURGICAL HISTORY : None. ENCOUNTER: Initial ACUITY: 3 days PAIN SCORE: 0/10 LOCATION: Bilateral chest FINDINGS: A single view of the chest demonstrates the lungs to be symmetrically aerated without evidence of mas s, infiltrate or effusion. The cardiomediastinal contours are unremarkable. Osseous structures are intact. CONCLUSION: No acute disease. Sg Abraham MD on August 07, 2017 at 21:18 Board Certified Radiologist. This report was verified electronically.
--- NOTE | 2017-08-07 21:21 | RADRPT ---
EXAM DATE/TIME: 08/07/2017 20:21 [facility] COMPARISON: No previous studies available for comparison. INDICATIONS : Right hip pain since being transferred by [facility] tonight. MEDICAL HISTORY : Hypertension. Hypercholesterolemia. SURGICAL HISTORY : None. ENCOUNTER: Initial ACUITY: 1 day PAIN SCORE: 6/10 LOCATION: Right hip. FINDINGS: Examination of the right hip was performed with AP Pelvis. The primary and secondary trabecular hernando colleen of the femoral neck is intact. The hip joint is of normal width without significant sclerosis or bony hypertrophy. The acetabulum is grossly intact. There is degenerative change in the lower lumba r spine. CONCLUSION: No acute abnormality is seen. Sg Abraham MD on August 07, 2017 at 21:19 Board Certified Radiologist. This report was verified electronically.
[2017-08-07] MEDS ORDERED: NS + KCL 20 MEQ INJ 1,000 ML IV SCH (21:30)
[2017-08-07] MEDS ORDERED: SODIUM CHLORID 0.9% 500 ML INJ 500 ML IV ONE (21:30)
--- NOTE | 2017-08-07 21:37 | RADRPT ---
EXAM DATE/TIME: 08/07/2017 20:43 [facility] COMPARISON: No previous studies available for comparison. INDICATIONS : Altered mental status. Weakness. RADIATION DOSE: 62.63 CTDIvol (mGy) MEDICAL HISTORY : Hypertension. SURGICAL HISTORY : None. ENCOUNTER: Initial ACUITY: 1 day PAIN SCALE: 0/10 LOCATION: cranial TECHNIQUE: Multiple contiguous axial images were obtained of the head. Using automated exposure control and adj ustment of the mA and/or kV according to patient size, radiation dose was kept as low as reasonably a chievable to obtain optimal diagnostic quality images. DICOM format image data is available electro nically for review and comparison. FINDINGS: CEREBRUM: The ventricles are normal for age. No evidence of midline shift, mass lesion, hemorrhage or acute in farction. No extra-axial fluid collections are seen. There is prominent calcification along the falx . Incidental calcifications are seen in the basal ganglia. POSTERIOR FOSSA: The cerebellum and brainstem are intact. The 4th ventricle is midline. The cerebellopontine angle i s unremarkable. EXTRACRANIAL: The visualized portion of the orbits is intact. There is focal right sphenoid sinus disease. SKULL: The calvaria is intact. No evidence of skull fracture. CONCLUSION: 1. No intracranial abnormality is seen. 2. Focal right sphenoid sinus disease. Sg Abraham MD on August 07, 2017 at 21:34 Board Certified Radiologist. This report was verified electronically.
[2017-08-07] MEDS: PANTOPRAZOLE SOD 40 MG DELAYED RELEASE TAB PO SCH (21:47)
--- NOTE | 2017-08-07 22:21 | RADRPT ---
EXAM DATE/TIME: 08/07/2017 20:46 [facility] COMPARISON: No previous studies available for comparison. INDICATIONS : Lower back pain. ORAL CONTRAST: No oral contrast ingested. RADIATION DOSE: 15.28 CTDIvol (mGy) MEDICAL HISTORY : Hypertension. Gastroesophageal reflux disease. SURGICAL HISTORY : None. ENCOUNTER: Initial ACUITY: 1 day PAIN SCALE: 8/10 LOCATION: Bilateral lower quadrant posterior TECHNIQUE: Volumetric scanning of the abdomen and pelvis was performed. Using automated exposure control and adjustment of the mA and/or kV according to patient size, radiation dose was kept as low as reasonably achievable to obtain optimal diagnostic quality images. DICOM format image data is av ailable electronically for review and comparison. FINDINGS: There is a moderate hiatal hernia. There does appear to be a portion of this that appea rs paraesophageal. Calcified granulomas are seen in the spleen. The liver is unremarkable. The gal lbladder is distended. No calcified gallstones are seen. Biliary ductal dilatation is not clearly i dentified. The pancreas and adrenal glands are unremarkable. The kidneys appear grossly unremarkabl e. No renal stones or hydronephrosis is seen. Atherosclerotic calcifications are seen throughout th e arterial system. There is no aneurysm. There are scattered colonic diverticula. The patient does have a left inguinal hernia containing a short segment of the proximal sigmoid colon. There is some perinephric stranding being more prominent on the right. The right stranding extends into the right paracolic gutter region and abuts the gallbladder. The pelvic structures appear grossly intact. There is some mild increased density at the posterior l eft lung base likely related to atelectasis or minimal consolidation. There is degenerative change i n the lumbar spine. There is a fracture deformity at the superior aspect of the T11 vertebral body. There also appear to be more chronic fracture deformities at the inferior aspect of L3 and the superi or and inferior aspects of L4 with loss of height at these regions. CONCLUSION: 1. Left inguinal hernia containing a small segment of the proximal sigmoid colon. Significant bowel dilatation is not seen. 2. Fracture deformity at the superior aspect of T11. This appears likely either acute or subacute. There do appear to be more chronic changes at the L3 and L4 levels as described above. 3. Moderate hiatal hernia with at least a portion of this being a paraesophageal hiatal hernia. 4. Induration seen in the perinephric space especially on the right. Some of this does abut the dist ended gallbladder. This can be correlated with the patient's symptoms. 5. Calcified granulomas in the spleen. Sg Abraham MD on August 07, 2017 at 21:50 Board Certified Radiologist. This report was verified electronically.
[2017-08-08 04:00] VITALS: BP 134/61; PULSE 105; RESP 20; TEMP 97.9; O2SAT 97
[2017-08-08] MEDS: MORPHINE SULFATE 4 MG/ML INJ IV PUSH PRN ×2 (05:28→19:28)
[2017-08-08] MEDS ORDERED: LORazepam 2 MG/ML VIAL IV PUSH SCH (06:00)
--- NOTE | 2017-08-08 06:33 | HHI.PR ---
Subjective Remarks Much more alert this morning. Oriented to person place and able to provide more history regarding the events leading to her admission. Patient reports she's had some difficulties urinating the last week or so prior to admission. She is not sure when she had her last bowel movement reports that in the last 2-3 days at home. Denies dysuria or hematuria but does have urgency. Despite the urgency still has difficulty urinating. It is noted she required insertion of bladder catheter twice with most recent insertion resulting in over 1600 cc of urine produced. Objective Vitals Vital Signs Date Time Temp Pulse Resp B/P (MAP) Pulse Ox O2 Delivery O2 Flow Rate FiO2 08/08/17 04:00 97.9 105 20 134/61 (85) 97 08/07/17 23:30 99 08/07/17 23:20 97.5 99 20 117/59 (78) 96 08/07/17 23:01 08/07/17 21:58 96 16 125/59 (81) 99 Room Air 08/07/17 19:38 92 16 111/58 (75) 96 Room Air 08/07/17 19:10 89 16 102/52 (69) 97 Room Air 08/07/17 18:59 86 18 89/38 (55) 08/07/17 18:29 85 18 78/41 (53) 08/07/17 18:09 96 08/07/17 17:10 98.4 79 20 107/59 (75) 97 GENERAL: Awake and alert. More oriented. More interactive. No acute distress. SKIN: Warm and dry. Well-healed Postsurgical scars anterior bilateral knees. HEAD: Normocephalic. EYES: No scleral icterus. No injection or drainage. NECK: Supple, trachea midline. No JVD or lymphadenopathy. CARDIOVASCULAR: Regular rate and rhythm without gallops or rubs. 2/6 systolic ejection murmur best heard in aortic space. RESPIRATORY: Breath sounds equal bilaterally. No accessory muscle use. GASTROINTESTINAL: Abdomen soft, non-tender, nondistended. Bowel sounds normal. MUSCULOSKELETAL: No cyanosis, or edema. Moves all extremities to command. Positive straight leg test on the left. DTRs 1+ at bilateral knees. Right lower extremity strength 5 out of 5, left lower extremity dorsiflexion and plantar flexion 5 out of 5, left lower extremity hip flexion 4.5 out of 5. BACK: Paralumbar spasm noted slightly more on the left. No CVA tenderness. Result Diagram: 08/07/17 2340 08/07/17 1530 Imaging Last 72 hours Impressions Chest X-Ray 08/07/17 1751 Signed Impressions: Service Date/Time: Monday, August 07, 2017 20:21 - CONCLUSION: No acute disease. Sg Abraham MD Hip and Pelvis X-Ray 08/07/17 0000 Signed Impressions: Service Date/Time: Monday, August 07, 2017 20:21 - CONCLUSION: No acute abnormality is seen. Sg Abraham MD Head CT 08/07/17 0000 Signed Impressions: Service Date/Time: Monday, August 07, 2017 20:43 - CONCLUSION: 1. No intracranial abnormality is seen. 2. Focal right sphenoid sinus disease. Sg Abraham MD Abdomen/Pelvis CT 08/07/17 0000 Signed Impressions: Service Date/Time: Monday, August 07, 2017 20:46 - CONCLUSION: 1. Left inguinal hernia containing a small segment of the proximal sigmoid colon. Significant bowel dilatation is not seen. 2. Fracture deformity at the superior aspect of T11. This appears likely either acute or subacute. There do appear to be more chronic changes at the L3 and L4 levels as described above. 3. Moderate hiatal hernia with at least a portion of this being a paraesophageal hiatal hernia. 4. Induration seen in the perinephric space especially on the right. Some of this does abut the distended gallbladder. This can be correlated with the patient's symptoms. 5. Calcified granulomas in the spleen. Sg Abraham MD Urinary Catheter: No Vascular Central Line Catheter: No A/P Problem List: (1) Altered mental status ICD Codes: R41.82 - Altered mental status, unspecified Plan: Likely multifactorial associated with dehydration, pain medication and azotemia. No acute findings on CT brain. Mentation much improved this morning. (2) Intractable low back pain ICD Codes: M54.5 - Low back pain Status: Acute Plan: Patient has chronic low back pain but over the last few weeks and it has been worsening. She has failed outpatient tramadol, IM Toradol, Lortab. Morphine extended release was therefore added August 06 and likely is partly contributing to her altered mentation and low blood pressure. Twisting or moving motions tend to cause spasm. She has history of spinal stenosis and some apparent urinary retention. DTRs symmetric in lower extremities. We'll check MRI of L-spine (3) Lumbar spinal stenosis ICD Codes: M48.061 - Spinal stenosis, lumbar region without neurogenic claudication Status: Chronic Plan: As above. We'll attempt to manage pain. No significant focal weakness of lower extremities. (4) Hypertension ICD Codes: I10 - Essential (primary) hypertension Status: Chronic Plan: Patient had hypotension initially. This is improving with IV fluids. We'll continue holding medication this point may need to resume. (5) Anemia ICD Codes: D64.9 - Anemia, unspecified Status: Chronic Plan: Baseline hemoglobin generally around 10.5. 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 She notes that she has used naproxen at home and given her presenting mentation she may have been taking more than she is reporting. We'll follow hemoglobin closely. Vitals stable at this point. Repeat hemoglobin last night stable. (6) Acute kidney injury superimposed on chronic kidney disease ICD Codes: N17.9 - Acute kidney failure, unspecified; N18.9 - Chronic kidney disease, unspecified Status: Acute Plan: Creatinine generally around 0.9. Provide IV fluids. Repeat labs pending. We'll insert Taylor given her bladder retention which may be causing obstructive uropathy. Discharge Planning Hopefully discharge in 1-2 days. Will depend on her clinical progression as well as MRI result. Problem Qualifiers (1) Altered mental status: Qualified Codes: R41.0 - Disorientation, unspecified (2) Hypertension: Qualified Codes: I10 - Essential (primary) hypertension (3) Anemia: Noe Cook MD PhD Aug 08, 2017 06:33
[2017-08-08 06:59] LABS: HEMATOCRIT 24.9 % (35.0-46.0); MEAN CELL VOLUME 92.4 FL (80.0-100.0); MEAN CORPUSCULAR HEMOGLOBIN 31.2 PG (27.0-34.0); MEAN CORPUSCULAR HGB CONC 33.7 % (32.0-36.0); PLATELET COUNT 171 TH/MM3 (150-450); RED BLOOD COUNT 2.69 MIL/MM3 (4.00-5.30); WHITE BLOOD COUNT 14.1 TH/MM3 (4.0-11.0)
[2017-08-08 07:04] LABS: CHLORIDE 103 MEQ/L (98-107); POTASSIUM 3.6 MEQ/L (3.5-5.1); SODIUM (NA) 136 MEQ/L (136-145)
[2017-08-08 07:11] LABS: ANION GAP 15 MEQ/L (5-15); BICARBONATE 17.6 MEQ/L (21.0-32.0)
[2017-08-08 07:19] LABS: HEMO FLAGS AUTO DIFF
[2017-08-08 07:23] LABS: ALKALINE PHOSPHATASE 95 U/L (45-117); ALT (GPT) 14 U/L (10-53); AST (GOT) 16 U/L (15-37); BLOOD UREA NITROGEN 64 MG/DL (7-18); GLOMERULAR FILTRATION RATE 28 ML/MIN (>89); TOTAL BILIRUBIN ADULT 0.7 MG/DL (0.2-1.0)
[2017-08-08] MEDS ORDERED: POTASSIUM CHLORIDE 10 MEQ CONTROLLED RELEASE TAB PO ONE (07:45)
[2017-08-08 08:00] VITALS: BP 130/72; PULSE 88; RESP 17; TEMP 97.7; O2SAT 95
[2017-08-08 09:04] LABS: BANDS 3 % (0-6); BURR CELLS 1+ (NORMAL); NEUTROPHIL # MANUAL DIFF 9.9 TH/MM3 (1.8-7.7); OVALOCYTES 1+ (NORMAL); PLATELET ESTIMATE SMEAR NORMAL (NORMAL); PLATELET MORPHOLOGY NORMAL (NORMAL); POLYS (SEG NEUTROPHILS) 67 % (16-70); WBC DIFF SAMPLE 100
[2017-08-08 09:05] LABS: SCAN/DIFF AUTO DIFF CONFIRMED
--- NOTE | 2017-08-08 10:23 | EKG ---
Date Performed: 08/07/2017 Time Performed: 18:00:12 PTAGE: 87 years EKG: Sinus rhythm POSSIBLE LEFT ATRIAL ENLARGEMENT POSSIBLE RIGHT VENTRICULAR CONDUCTION DELAY NO PREVIOUS TRACING DOCTOR: Hermes Adler Interpretating Date/Time 08/08/2017 10:23:22
[2017-08-08] MEDS: CALCIUM/VITAMIN D 250 MG/125 U TAB PO SCH (10:32)
[2017-08-08] MEDS: PRAVASTATIN SOD 40 MG TAB PO SCH (10:33)
[2017-08-08] MEDS: CYCLOBENZAPRINE HCL 10 MG TAB PO SCH ×3 (10:33→18:07)
[2017-08-08] MEDS: FERROUS SULFATE 325 MG (65 MG ELEMENTAL IRON) TAB PO SCH (10:33)
[2017-08-08] MEDS: PANTOPRAZOLE SOD 40 MG DELAYED RELEASE TAB PO SCH (10:33)
[2017-08-08 12:00] VITALS: BP 128/80; PULSE 79; RESP 19; TEMP 98.5; O2SAT 96
--- NOTE | 2017-08-08 13:35 | RADRPT ---
EXAM DATE/TIME: 08/08/2017 12:12 [place] COMPARISON: No previous studies available for comparison. INDICATIONS : Severe lower back pain with spasms. MEDICAL HISTORY : Hypertension. Gastroesophageal reflux disease. Hypercholesterolemia. SURGICAL HISTORY : Total knee replacement, left. Total knee replacement, right. ENCOUNTER: Subsequent ACUITY: 3 day PAIN SCORE: 6/10 LOCATION: lower back TECHNIQUE: Multiplanar multisequence MRI of the lumbar spine was performed without contrast. FINDINGS: Sagittal images demonstrate normal vertebral body alignment and curvature. There is marrow edema invo lving the T11 vertebral body characteristic of acute impression fracture. There are old compression f ractures at L3 and L4. The conus terminates normally. Axial images were performed from T12-L1 through L5-S1. T12-L1: No significant abnormalities identified. L1-L2: There is mild annular bulge of the disc. There is moderate facet arthritis bilaterally with ligamentu m flavum hypertrophy. The neural foramina are clear bilaterally. L2-L3: There is broad-based annular bulge of disc. There is moderate facet arthritis bilaterally with ligame ntum flavum hypertrophy. There is mild to moderate spinal canal stenosis. L3-L4: There is broad-based annular bulge of disc. There is moderate facet arthritis bilaterally with ligame ntum flavum hypertrophy. There is moderate to severe spinal canal stenosis. L4-L5: There is broad-based annular bulge of disc. There is moderate facet arthritis bilaterally with ligame ntum flavum hypertrophy. There is moderate neural foraminal narrowing on the left. L5-S1: There is broad-based annular bulge of disc. There is far lateral osteophyte impinging on the exiting L5 nerve root well beyond the foramen. There is no significant spinal canal stenosis. There is modera te facet arthritis bilaterally with ligamentum flavum hypertrophy. CONCLUSION: 1. Acute compression fracture T11. The patient may be a candidate for kyphoplasty if clinically indic ated 2. Moderate to severe stenosis at L3-L4 with moderate stenosis at L2-L3 and L4-L5 Jonathan Franklin MD on August 08, 2017 at 13:13 Board Certified Radiologist. This report was verified electronically.
--- NOTE | 2017-08-08 16:05 | HHI.PR ---
Addendum to Inpatient Note Addendum Reason: Additional Documentation Additional Information MRI reviewed. Spoke with family. They are desirous of kyphoplasty and NS eval. Spoke with Dr Seay who believes pt will benefit from kyphoplasty, but isn't sure the stenosis is severe enough to cause urinary retention. Will transfer to [facility] per d/w Dr Seay. Discussed case with Dr Jewell who will be attending at [facility]. Noe Cook MD PhD Aug 08, 2017 16:05
[2017-08-08] MEDS ORDERED: cefTRIAXone INJ 1,000 MG in SODIUM CHLORIDE 0.9% INJ 100 ML IV ONE (17:00)
[2017-08-08 20:00] VITALS: BP 123/70; PULSE 133; RESP 24; TEMP 99.2; O2SAT 94
[2017-08-08] MEDS ORDERED: MORPHINE SULFATE 2 MG/ML INJ IV PRN (20:30)
[2017-08-08] MEDS ORDERED: MORPHINE SULFATE 4 MG/ML INJ IV PUSH PRN (20:30)
[2017-08-08 22:16] VITALS: BP 105/59; PULSE 130; TEMP 99.7; O2SAT 95
[2017-08-08] MEDS ORDERED: DIGOXIN 0.5 MG/2 ML VIAL IV PUSH ONE (23:00)
[2017-08-09] VITALS (11 sets, daily range): BP systolic 107–141; BP diastolic 57–77; PULSE 92–126; RESP 16–24; TEMP 97–99.2; O2SAT 91–100
[2017-08-09] MEDS: FERROUS SULFATE 325 MG (65 MG ELEMENTAL IRON) TAB PO SCH (08:36)
[2017-08-09] MEDS: PRAVASTATIN SOD 40 MG TAB PO SCH (08:36)
[2017-08-09] MEDS: PANTOPRAZOLE SOD 40 MG DELAYED RELEASE TAB PO SCH (08:36)
[2017-08-09] MEDS: CALCIUM/VITAMIN D 250 MG/125 U TAB PO SCH (08:36)
[2017-08-09] MEDS: CYCLOBENZAPRINE HCL 10 MG TAB PO SCH (08:36)
[2017-08-09 09:05] LABS: AUTOMATED NEUTROPHIL # 17.1 TH/MM3 (1.8-7.7); BASOPHIL % 0.1 % (0.0-2.0); HEMATOCRIT 24.1 % (35.0-46.0); LYMPH % 5.5 % (9.0-44.0); LYMPHOCYTE # 1.5 TH/MM3 (1.0-4.8); MEAN CELL VOLUME 92.8 FL (80.0-100.0); MEAN CORPUSCULAR HEMOGLOBIN 31.1 PG (27.0-34.0); MEAN CORPUSCULAR HGB CONC 33.6 % (32.0-36.0); MONO % 30.7 % (0.0-8.0); NEUT % 63.7 % (16.0-70.0); PLATELET COUNT 206 TH/MM3 (150-450); RED CELL DISTRIBUTION WIDTH 13.4 % (11.6-17.2); WHITE BLOOD COUNT 26.9 TH/MM3 (4.0-11.0)
[2017-08-09 09:08] LABS: HEMO FLAGS AUTO DIFF
[2017-08-09 09:41] LABS: BICARBONATE 18.6 MEQ/L (21.0-32.0); POTASSIUM 3.9 MEQ/L (3.5-5.1)
[2017-08-09 09:56] LABS: BANDS 12 % (0-6); NEUTROPHIL # MANUAL DIFF 18.8 TH/MM3 (1.8-7.7); POLYS (SEG NEUTROPHILS) 58 % (16-70); WBC DIFF SAMPLE 100
[2017-08-09 09:57] LABS: PLATELET ESTIMATE SMEAR NORMAL (NORMAL); PLATELET MORPHOLOGY ENLARGED (NORMAL); TOXIC GRANULATION 1+ (NORMAL)
[2017-08-09 10:00] LABS: DOHLE BODIES PRESENT (NONE SEEN)
[2017-08-09] MEDS ORDERED: INFLUENZA VIRUS VACCINE (QUADRIVALENT) 0.5 ML SYR IM ONE (10:00)
[2017-08-09] MEDS ORDERED: PNEUMOCOCCAL POLYVALENT INJ 25 MCG/0.5 ML SYR IM ONE (10:00)
[2017-08-09 10:01] LABS: ACANTHOCYTES OCC (NORMAL); OVALOCYTES 1+ (NORMAL); SCAN/DIFF FINAL DIFF MANUAL
[2017-08-09] MEDS: DEXT 5%-NACL 0.9% 1000 ML INJ 1,000 ML IV SCH ×2 (11:15→19:53)
--- NOTE | 2017-08-09 11:29 | PD.CONS ---
[facility] Service neurosurg Consult Requested By Dr Cook Reason for Consult T11 fracture Primary Care Physician Noe Cook MD, PhD History of Present Illness This is a 87-year-old female with history of chronic low back pain and hypertension, who presents via EMS for evaluation of back pain. She had also mild altered mental status and disorientation. Patient has apparently received 2 doses of morphine extended release due to intractable back pain. She was in her pain management doctor's office last week and complained of extreme pain in lower back. From there she was transported to the ER where she received IV morphine with some relief. Apparently she has not been eating or drinking properly over the last few days due to pain and just "sitting on the couch". 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 ER evaluation noted she was hypotensive with low systolic pressures in the 80s which have responded to IV fluid bolus. She was anemic with I hemoglobin of 8, white blood cell count 14,000, with some renal insufficiency with a BUNs 79 and creatinine of 2.9. MRI of the lumbar spine show lumbar spinal stenosis. In addition she had some acute T11 fracture without retropulsion. A neurosurgical consultation was requested When I went to assess her she was very lethargic. She had a left facial droop and was unable to move her left upper and her left lower extremity. This is an acute change since she has been assisted with the the past hour and found to be functional, without focal deficits. 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 Osteoporosis B12 deficiency Past Surgical History Colonoscopy and EGD done in July 2016 Reported Medications Naproxen 500 Mg Tab 500 Mg PO BID 10 Days Lidocaine Patch 12 HR (Lidocaine) 5 % Patch 1 Patch TOPICAL DAILY PRN Remove patch after 12 hours Morphine ER (Morphine Sulfate) 15 Mg Tab 15 Mg PO BID Vitamin O19-Furyx Acid (Cobalamine Combinations) 500-400 Mcg Tab 1 Tab PO DAILY Iron (Ferrous Sulfate) 325 Mg Cap 325 Mg PO DAILY Calcium 500 +D (Calcium Carbonate-Cholecalciferol) 500-400 Mg-Unit Tab 1 Tab PO DAILY Fish Oil + D3 (Fish Oil-Cholecalciferol) 1,200-1,000 Mg-Unit Cap 1 Cap PO DAILY Omeprazole 20 Mg Tab 20 Mg PO DAILY Simvastatin 20 Mg Tab 20 Mg PO DAILY Amlodipine (Amlodipine Besylate) 5 Mg Tab 5 Mg PO DAILY Atenolol-Chlorthalidone 50-25 Mg Tab 0.5 Tab PO DAILY Flexeril (Cyclobenzaprine HCl) 10 Mg Tab 10 Mg PO TID Hydrocodone-Acetaminophen 5-325 mg Tab 1 Tab PO Q4H PRN Active Ordered Medications Current Medications IV Flush (NS Flush) 2 ml UNSCH PRN IV FLUSH FLUSH AFTER USING IV ACCESS; Start 08/07/17 at 18:00 Sodium Chloride 1,000 ml @ 500 mls/hr Q2H IV Last administered on 08/07/17 18 :33; Start 08/07/17 at 17:51; Stop 08/07/17 at 19:50; Status DC Morphine Sulfate (Morphine Inj) 2 mg Q3H PRN IV PUSH pain level 3-10 Last administered on 08/08/17 19:28; Start 08/07/17 at 21:30 Sodium Chloride 500 ml @ 500 mls/hr BOLUS ONCE IV Last administered on 21:30; Start 08/07/17 at 21:30; Stop 08/07/17 at 22:29; Status DC Potassium Chloride/Sodium Chloride 1,000 ml @ 84 mls/hr [id number] IV Last administered on 08/07/17 21:47; Start 08/07/17 at 21:30; Stop 08/09/17 at 11:19 ; Status DC Cyclobenzaprine HCl (Flexeril) 10 mg TID PO Last administered on 08/09/17 08: 36; Start 08/08/17 at 09:00; Stop 08/09/17 at 11:19; Status DC Calcium/Vitamin D (Oscal-D 250-125) 500 mg DAILY PO Last administered on 08:36; Start 08/08/17 at 09:00 Ferrous Sulfate (Ferrous Sulfate) 325 mg DAILY PO Last administered on 08:36; Start 08/08/17 at 09:00 Pravastatin Sodium (Pravachol) 40 mg DAILY PO Last administered on 08/09/17 08 :36; Start 08/08/17 at 09:00 Pantoprazole Sodium (Protonix) 40 mg DAILY PO Last administered on 08/09/17 08 :36; Start 08/07/17 at 21:30 Pneumococcal Polyvalent Vaccine (Pneumovax-23 Inj) 25 mcg ONCE ONCE IM ; Start 08/09/17 at 10:00; Stop 08/09/17 at 10:01; Status DC Influenza Virus Vaccine (Flu (Quadrivalent) Vaccine Inj) 0.5 ml ONCE ONCE IM ; Start 08/09/17 at 10:00; Stop 08/09/17 at 10:01; Status DC Lorazepam (Ativan Inj) 1 mg DRAWBENCH OPERATOR HELPER IV PUSH ; Start 08/08/17 at 06:00; Stop at 23:59; Status DC Potassium Chloride (KCl) 30 meq ONCE ONCE PO Last administered on 08/08/17 10 :32; Start 08/08/17 at 07:45; Stop 08/08/17 at 07:55; Status DC Ceftriaxone Sodium 1000 mg/ Sodium Chloride 100 ml @ 200 mls/hr ONCE ONCE IV Last administered on 08/08/17 18:08; Start 08/08/17 at 17:00; Stop 08/08/17 at 17:29; Status DC Morphine Sulfate (Morphine Inj) 2 mg ONCE PRN IV IF PAIN > 2; Start 08/08/17 at 20:30; Stop 08/08/17 at 20:30; Status DC Morphine Sulfate (Morphine Inj) 2 mg ONCE PRN IV PUSH IF PAIN > 2; Start at 20:30; Stop 08/08/17 at 22:00; Status DC Digoxin (Lanoxin Inj) 0.125 mg NOW ONCE IV PUSH Last administered on 23:05; Start 08/08/17 at 23:00; Stop 08/08/17 at 23:01; Status DC Dextrose/Sodium Chloride 1,000 ml @ 84 mls/hr [id number] IV Last administered on 08/09/17 11:15; Start 08/09/17 at 11:15 Atenolol (Tenormin) 25 mg ONCE ONCE PO Last administered on 08/09/17t 12:29; Start 08/09/17 at 11:30; Stop 08/09/17 at 11:31; Status DC Atenolol (Tenormin) 25 mg Q12HR PO ; Start 08/09/17 at 21:00 Piperacillin Sod/ Tazobactam Sod 50 ml @ 100 mls/hr Q6H IV ; Start 08/09/17 at 12:00 Lorazepam (Ativan Inj) 0.5 mg Q4H PRN IV PUSH agitation/anxiety; Start at 11:30 Cefazolin Sodium/ Dextrose 50 ml @ 150 mls/hr ONCE ONCE IV ; Start 08/10/17 at 06:00; Stop 08/10/17 at 06:19 Vancomycin HCl 1000 mg/Sodium Chloride 250 ml @ 250 mls/hr ONCE ONCE IV ; Start 08/10/17 at 06:00; Stop 08/10/17 at 06:59 Chlorhexidine Gluconate (Hibiclens 4% Top Soln) 1 applic HS TOP ; Start at 21:00; Stop 08/11/17 at 21:01 Sodium Chloride 1,000 ml @ 70 mls/hr [id number] IV ; Start 08/09/17 at 13:30 Iohexol (Omnipaque 350 Inj) 75 ml STK-MED ONCE IVCONTRAST Last administered on 08/09/17t 13:23; Start 08/09/17 at 13:23; Stop 08/09/17 at 13:24; Status DC Alteplase, Recombinant (Activase Bolus) 6.3 mg ONCE ONCE IV ; Start 08/09/17 at 13:30; Stop 08/09/17 at 13:35; Status DC Alteplase, Recombinant 56.5 mg/Syringe / Bag 56.5 ml @ 56.5 mls/hr ONCE ONCE IV ; Start 08/09/17 at 13:30; Stop 08/09/17 at 14:29 Sodium Chloride (NS Inj) 30 ml ONCE ONCE IVF ; Start 08/09/17 at 13:30; Stop 08/09/17 at 13:38; Status DC Miscellaneous Information No Heparin, Warfarin, Aspir... UNSCH PRN XX SEE DOSE INSTRUCTIONS; Start 08/09/17 at 14:00; Stop 08/10/17 at 13:59 Family History Her past medical history was reviewed and was found to be noncontributory Social History She drinks alcohol usually one beer per day but has not been drinking much of any fluid in the last few days No tobacco since 1973 prior "one pack per day for 20 years The window since 1983 and lives alone. She has family in the area that check on her daily. 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 Follows some commands with right side Cranial Nerves: Pupils equal, round, reactive to light. Eyes appear conjugated. There was no nystagmus, no papilledema. Face musculature shows a left supranuclear drop. Face sensation, olfaction, visual melton, and hearing cannot be adequately assessed due to his neurological condition. The patient has a corneal reflex. She has a gag reflex. The sternocleidomastoid and trapezius are symmetrical. Cervical Spine: Her neck is soft, supple Motor: muscle tone and bulk are normal on the right. She has a left hemiplegia Reflexes: Deep tendon reflexes are 1+ and symmetrical in the biceps, triceps, and brachioradialis, bilaterally, in the upper extremities. In the lower extremities, the patellar and ankles are 1+, bilaterally. There is a bilateral plantar flexion response. There is no clonus or other abnormal reflexes noted. Sensory: On examination there is response to painful stimuli, localizing with her right upper and lower extremities, no motor response on the left side. Cerebellar: Examination cannot be adequately assessed due to the patient's neurological condition. Laboratory Laboratory Tests Test 08/09/17 08:40 White Blood Count 26.9 Red Blood Count 2.60 Hemoglobin 8.1 Hematocrit 24.1 Mean Corpuscular Volume 92.8 Mean Corpuscular Hemoglobin 31.1 Mean Corpuscular Hemoglobin Concent 33.6 Red Cell Distribution Width 13.4 Platelet Count 206 Mean Platelet Volume 9.6 Neutrophils (%) (Auto) 63.7 Lymphocytes (%) (Auto) 5.5 Monocytes (%) (Auto) 30.7 Eosinophils (%) (Auto) 0.0 Basophils (%) (Auto) 0.1 Neutrophils # (Auto) 17.1 Lymphocytes # (Auto) 1.5 Monocytes # (Auto) 8.2 Eosinophils # (Auto) 0.0 Basophils # (Auto) 0.0 CBC Comment AUTO DIFF Differential Total Cells Counted 100 Neutrophils % (Manual) 58 Band Neutrophils % 12 Lymphocytes % 7 Monocytes % 23 Neutrophils # (Manual) 18.8 Differential Comment FINAL DIFF MANUAL Toxic Granulation 1+ Dohle Bodies PRESENT Platelet Estimate NORMAL Platelet Morphology Comment ENLARGED Ovalocytes 1+ Acanthocytes OCC Blood Urea Nitrogen 40 Creatinine 1.08 Random Glucose 149 Calcium Level 9.6 Sodium Level 142 Potassium Level 3.9 Chloride Level 109 Carbon Dioxide Level 18.6 Anion Gap 14 Estimat Glomerular Filtration Rate 48 Result Diagram: 08/09/17 0840 08/09/17 0840 Imaging Last 48 hours Impressions Lumbar Spine MRI 08/08/17 0000 Signed Impressions: Service Date/Time: Tuesday, August 08, 2017 12:12 - CONCLUSION: 1. Acute compression fracture T11. The patient may be a candidate for kyphoplasty if clinically indicated 2. Moderate to severe stenosis at L3-L4 with moderate stenosis at L2-L3 and L4-L5 Jonathan Franklin MD Chest X-Ray 08/07/17 [id number] Signed Impressions: Service Date/Time: Monday, August 07, 2017 20:21 - CONCLUSION: No acute disease. Sg Abraham MD Assessment and Plan Assessment and Plan Caprini VTE Risk Assessment Caprini VTE Risk Assessment: Mod/High Risk (score >= 2) VTE Pharm Contraindication: High risk for bleeding Caprini Risk Assessment Model Point Value = 1 Point Value = 2 Point Value = 3 Point Value = 5 Age 41-60 Minor surgery BMI > 25 kg/m2 Swollen legs Varicose veins or History of unexplained or recurrent spontaneous Oral contraceptives or hormone replacement Sepsis (< 1 month) Serious lung disease, including pneumonia (< 1 month) Abnormal pulmonary function Acute myocardial infarction Congestive heart failure (< 1 month) History of inflammatory bowel disease Medical patient at bed rest Age 61-74 Arthroscopic surgery Major open surgery (> 45 min) Laparoscopic surgery (> 45 min) Malignancy Confined to bed (> 72 hours) Immobilizing plaster cast Central venous access Age >= 75 History of VTE Family history of VTE Factor V Leiden Prothrombin [id number] Lupus anticoagulant Anticardiolipin antibodies Elevated serum homocysteine Heparin-induced thrombocytopenia Other congenital or acquired thrombophilia Stroke (< 1 month) Elective arthroplasty Hip, pelvis, or leg fracture Acute spinal cord injury (< 1 month) Prophylaxis Regimen Total Risk Factor Score Risk Level Prophylaxis Regimen 0-1 Low Early ambulation 2 Moderate Order ONE of the following: *Sequential Compression Device (SCD) *Heparin 5000 units SQ BID 3-4 Higher Order ONE of the following medications: *Heparin 5000 units SQ TID *Enoxaparin/Lovenox 40 mg SQ daily (WT < 150 kg, CrCl > 30 mL/min) *Enoxaparin/Lovenox 30 mg SQ daily (WT < 150 kg, CrCl > 10-29 mL/min) *Enoxaparin/Lovenox 30 mg SQ BID (WT < 150 kg, CrCl > 30 mL/min) AND/OR *Sequential Compression Device (SCD) 5 or more Highest Order ONE of the following medications: *Heparin 5000 units SQ TID (Preferred with Epidurals) *Enoxaparin/Lovenox 40 mg SQ daily (WT < 150 kg, CrCl > 30 mL/min) *Enoxaparin/Lovenox 30 mg SQ daily (WT < 150 kg, CrCl > 10-29 mL/min) *Enoxaparin/Lovenox 30 mg SQ BID (WT < 150 kg, CrCl > 30 mL/min) AND *Sequential Compression Device (SCD) (1) Thoracic compression fracture (2) Acute cerebrovascular accident (3) Lumbar spinal stenosis ICD Codes: M48.061 - Spinal stenosis, lumbar region without neurogenic claudication Status: Chronic (4) Hypertension ICD Codes: I10 - Essential (primary) hypertension Status: Chronic (5) Anemia ICD Codes: D64.9 - Anemia, unspecified Status: Chronic Attending Statement Stroke alert has been called. Pupil was resuscitated according to the standard protocol. Emergency CT and CTA have been ordered T11 fracture. Alternatives of treatment have been considered including the use of a thoracolumbar orthosis versus a kyphoplasty. The patient is having an acute stroke, not a candidate for kyphoplastryvery full and in my opinion she would benefit by a kyphoplasty She has significant lumbar spinal stenosis. I recommend to continue nonoperative treatment with therapy and adjacent inflammatory's and possibly pain management by an interventional pain specialist in the future Altered mental status Likely multifactorial associated with dehydration, pain medication and azotemia. Hypertension. Hold medication at this point. Anemia Baseline hemoglobin generally around 10.5. 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 Acute kidney injury superimposed on chronic kidney disease. Chronic kidney disease, unspecified Acute. Careful IV hydration. monitor closely urine output, BUN and creatinine Pulmonary. Continue aggressive pulmonary toilette, nasotracheal suction, and breathing treatments with nebulizers. Daily PT and OT Nutrition. Tolerating Oral diet Endocrine. Continue to Monitor serial Acu checks and SSI as needed in detail ID continue to monitor for signs of infection Continue Protonix for stress ulcer prophylaxis Continue Oscar hose and SCD's for DVT prophylaxis Further recommendations will be provided depending on the patient's clinical evaluation and follow up studies. Discussed with Dr garnett and with Jose Sweet MD Aug 09, 2017 10:57
[2017-08-09] MEDS ORDERED: ATENOLOL 25 MG TAB PO ONE (11:30)
[2017-08-09] MEDS ORDERED: LORazepam 2 MG/ML VIAL IV PUSH PRN (11:30)
--- NOTE | 2017-08-09 11:32 | HHI.PR ---
Subjective Remarks confused.asking for water Objective Vitals lying in bed confused appears dry heart reg/tachy lung cta abd s/bs ext no edema Vital Signs Date Time Temp Pulse Resp B/P (MAP) Pulse Ox O2 Delivery O2 Flow Rate FiO2 08/09/17 08:39 97.3 121 16 110/59 (76) 94 08/09/17 06:39 98.4 122 24 119/57 (77) 97 08/09/17 01:39 98.0 126 24 123/57 (79) 96 08/08/17 22:16 99.7 130 105/59 (74) 95 08/08/17 20:00 99.2 133 24 123/70 (87) 94 08/08/17 12:00 98.5 79 19 128/80 (96) 96 Result Diagram: 08/09/17 0840 08/09/17 0840 Imaging Last 72 hours Impressions Chest X-Ray 08/07/17 1751 Signed Impressions: Service Date/Time: Monday, August 07, 2017 20:21 - CONCLUSION: No acute disease. Sg Abraham MD Hip and Pelvis X-Ray 08/07/17 0000 Signed Impressions: Service Date/Time: Monday, August 07, 2017 20:21 - CONCLUSION: No acute abnormality is seen. Sg Abraham MD Head CT 08/07/17 0000 Signed Impressions: Service Date/Time: Monday, August 07, 2017 20:43 - CONCLUSION: 1. No intracranial abnormality is seen. 2. Focal right sphenoid sinus disease. Sg Abraham MD Abdomen/Pelvis CT 08/07/17 0000 Signed Impressions: Service Date/Time: Monday, August 07, 2017 20:46 - CONCLUSION: 1. Left inguinal hernia containing a small segment of the proximal sigmoid colon. Significant bowel dilatation is not seen. 2. Fracture deformity at the superior aspect of T11. This appears likely either acute or subacute. There do appear to be more chronic changes at the L3 and L4 levels as described above. 3. Moderate hiatal hernia with at least a portion of this being a paraesophageal hiatal hernia. 4. Induration seen in the perinephric space especially on the right. Some of this does abut the distended gallbladder. This can be correlated with the patient's symptoms. 5. Calcified granulomas in the spleen. Sg Abraham MD A/P Problem List: (1) Delirium ICD Codes: R41.0 - Disorientation, unspecified Status: Acute Plan: 1. acute delirium 2. rylan 3. hypotension 4. sinus tachycardia 5. mod/severe lumbar stenosis with acute t11 fx and intractable pain 6. Leukocytosis 7. anemia cont ivf hydration resume her bb and hold diuretic secured entrance monitor cont abx. blood cx will be sent her arnd acting morphine held and prn iv ordered. will hold flexeril this AM. scd nsg consulted for fx. ADDENDUM; LEFT SIDE WEAKNESS. CVA ALERT. NSG AND NEURO INVOLVED. DISCUSSED WITH BOTH. TPA GIVEN. MOVED TO ICU. ON 2LNC. PROTECTING AIRWAY. PRN CARDENE ORDERED IN CASE SBP ABOVE 170. NO FAMILY AT BEDSIDE. I CALLED CONTACT NUMBER IN CHART..NO ANSWER..LEFT MESSAGE...ALSO NOTIFIED PCP OF INABILITY TO CONTACT IN CASE THEY CALL HIS OFFICE. NURSE WILL CALL IF FAMILY ARRIVES. (2) Hypotension ICD Codes: I95.9 - Hypotension, unspecified Status: Acute (3) RYLAN (acute kidney injury) ICD Codes: N17.9 - Acute kidney failure, unspecified Status: Acute (4) T11 vertebral fracture ICD Codes: S22.089A - Unspecified fracture of T11-T12 vertebra, initial encounter for closed fracture Status: Acute (5) Intractable low back pain ICD Codes: M54.5 - Low back pain Status: Acute (6) Lumbar spinal stenosis ICD Codes: M48.061 - Spinal stenosis, lumbar region without neurogenic claudication Status: Acute (7) Anemia ICD Codes: D64.9 - Anemia, unspecified Status: Chronic Plan: Baseline hemoglobin generally around 10.5. 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 She notes that she has used naproxen at home and given her presenting mentation she may have been taking more than she is reporting. We'll follow hemoglobin closely. Vitals stable at this point. Repeat hemoglobin last night stable. (8) Acute kidney injury superimposed on chronic kidney disease ICD Codes: N17.9 - Acute kidney failure, unspecified; N18.9 - Chronic kidney disease, unspecified Status: Acute (9) Sinus tachycardia ICD Codes: R00.0 - Tachycardia, unspecified (10) Hypertension ICD Codes: I10 - Essential (primary) hypertension Status: Chronic Problem Qualifiers (1) Anemia: (2) Hypertension: Qualified Codes: I10 - Essential (primary) hypertension Sánchez Jewell MD Aug 09, 2017 11:24
[2017-08-09] MEDS: PIPERACIL-TAZO 3.375 GM PREMIX 50 ML IV SCH ×2 (12:00→17:29)
--- NOTE | 2017-08-09 13:21 | RADRPT ---
EXAM DATE/TIME: 08/09/2017 13:01 [facility] COMPARISON: CT BRAIN W/O CONTRAST, August 07, 2017, 20:43. INDICATIONS : Stroke alert; left side weakness, non-verbal. RADIATION DOSE: 56.35 CTDIvol (mGy) This report was called by Dr. Beard to Dr. Cook at 1318 hrs. MEDICAL HISTORY : Hypertension. SURGICAL HISTORY : None. ENCOUNTER: Initial ACUITY: 1 day PAIN SCALE: Non-responsive LOCATION: cranial TECHNIQUE: Multiple contiguous axial images were obtained of the head. Using automated exposure control and adj ustment of the mA and/or kV according to patient size, radiation dose was kept as low as reasonably a chievable to obtain optimal diagnostic quality images. DICOM format image data is available electro nically for review and comparison. FINDINGS: CEREBRUM: The ventricles are normal for age. Calcifications are again noted in the basal ganglia. No evidence of midline shift, mass lesion, hemorrhage or acute infarction. No extra-axial fluid collections are seen. POSTERIOR FOSSA: The cerebellum and brainstem are intact. The 4th ventricle is midline. The cerebellopontine angle i s unremarkable. EXTRACRANIAL: The visualized portion of the orbits is intact. SKULL: The calvaria is intact. No evidence of skull fracture. CONCLUSION: Stable exam with no evidence of hemorrhage or acute infarction. Song Beard MD on August 09, 2017 at 13:16 Board Certified Radiologist. This report was verified electronically.
[2017-08-09] MEDS ORDERED: IOHEXOL 350 MG/ML 10 ML VIAL (for RAD DIAG) IVCONTRAST ONE (13:23)
[2017-08-09] MEDS ORDERED: ALTEPLASE DRIP IV ONE (13:30)
[2017-08-09] MEDS: SODIUM CHLOR 0.9% 1000 ML INJ 1,000 ML IV SCH (13:30)
[2017-08-09] MEDS ORDERED: SODIUM CHLORIDE 0.9% 50 ML BAG IVF ONE (13:30)
[2017-08-09] MEDS ORDERED: ALTEPLASE BOLUS 9 MG/9 ML SYR IV ONE (13:30)
--- NOTE | 2017-08-09 13:46 | RADRPT ---
EXAM DATE/TIME: 08/09/2017 13:01 [facility] COMPARISON: CT BRAIN W/O CONTRAST, August 09, 2017, 13:01. INDICATIONS : Stroke alert; left side weakness. IV CONTRAST: 75 cc Omnipaque 350 (iohexol) IV ; Cumulative dose for multiple exams. RADIATION DOSE: 14.21 CTDIvol (mGy) ; Combined studies MEDICAL HISTORY : Hypertension. SURGICAL HISTORY : None. ENCOUNTER: Initial ACUITY: 1 day PAIN SCALE: Non-responsive LOCATION: cranial TECHNIQUE: Volumetric scanning was performed using a multi-row detector CT scanner. The data was post processed with a variety of visualization algorithms including full volume maximum intensity projection, multi -planar sliding thin slab reformation, curved planar reformation, and surface rendering techniques. Using automated exposure control and adjustment of the mA and/or kV according to patient size, radiat ion dose was kept as low as reasonably achievable to obtain optimal diagnostic quality images. DICO M format image data is available electronically for review and comparison. FINDINGS: There is excellent visualization of the major intracranial arteries out to the second-order branch ve ssels. There is no evidence for aneurysm, vessel truncation or stenosis, and no evidence for vascula r malformation. CONCLUSION: Negative Sg Dalton MD on August 09, 2017 at 13:39 Board Certified Radiologist. This report was verified electronically.
[2017-08-09 13:52] LABS: I-STAT POTASSIUM 3.8 MMOL/L (3.5-4.9); I-STAT SODIUM 145 MMOL/L (138-146)
[2017-08-09 13:55] LABS: HEMATOCRIT 24.9 % (35.0-46.0); MEAN CELL VOLUME 92.8 FL (80.0-100.0); MEAN CORPUSCULAR HEMOGLOBIN 30.1 PG (27.0-34.0); MEAN CORPUSCULAR HGB CONC 32.5 % (32.0-36.0); PLATELET COUNT 222 TH/MM3 (150-450); RED BLOOD COUNT 2.68 MIL/MM3 (4.00-5.30); RED CELL DISTRIBUTION WIDTH 13.5 % (11.6-17.2); WHITE BLOOD COUNT 27.1 TH/MM3 (4.0-11.0)
[2017-08-09 13:56] LABS: HEMO FLAGS AUTO DIFF
[2017-08-09] MEDS ORDERED: niCARdipine INJ 25 MG in SODIUM CHLOR 0.9% 250 ML INJ 240 ML IV PRN ×2 (14:00→14:15)
[2017-08-09] MEDS ORDERED: MISCELLANEOUS NURSING INFORMATION XX PRN (14:00)
--- NOTE | 2017-08-09 14:02 | MB ---
cc: SOUMYA MYERS M.D. DATE OF CONSULTATION: 08/09/2017 REASON FOR CONSULTATION Stroke alert. HISTORY OF PRESENT ILLNESS Ms. Lau is a 87-year-old female who was brought to the hospital by the paramedics for back pain and was found to have a small T11 compression fracture as well as lumbar spondylosis. She was last seen normal at noon, shortly after that was noted to have a left hemiparesis, weak in the left arm and left leg with inability to move extremities and a stroke alert was called. PAST MEDICAL HISTORY 1. Aortic stenosis. 2. Chronic anemia. 3. Chronic kidney disease stage III. 4. Dunn's esophagus. 5. Peptic ulcer disease. 6. Hyperlipidemia. 7. Hypertension. 8. Lumbar stenosis. 9. Osteoporosis. 10. B12 deficiency. MEDICATIONS Current medications are: 1. Cefazolin. 2. Vancomycin. 3. Atenolol. 4. Piperacillin. 5. Lorazepam. 6. Calcium. 7. Iron sulfate. 8. Pravachol 40 mg daily. 9. Morphine sulfate as needed. 10. Protonix. NEUROLOGIC EXAMINATION VITAL SIGNS: Blood pressure is 131/67, pulse 126, respirations 20, temperature 98 degrees. Higher cortical functions she is alert. Speech is dysarthric. She follows commands. Cranial nerves intact. On motor exam she is moving the left side better than she was previously but still is weak and now 4/5 left arm and left leg, strength 5/5 strength on the right, reflexes are symmetric. IMAGING STUDIES CT of the brain shows no acute change present, no hemorrhage. There is no mass effect or edema. She does have some chronic ischemic changes. Calcifications noted at the basal ganglia. LABORATORY DATA White count 26,900, hemoglobin is 8.1, hematocrit 24.1%. Sodium is 142, potassium 3.9, chloride 109, CO2 18.6, BUN is 40, creatinine 1.08, GFR is 48, glucose 149, PT 11.5, INR 1, APTT 35.8. Urinalysis pH is 5, specific gravity 1.019, protein is 30, ketones 15, RBC 4-9, WBC 0-2. EKG Sinus rhythm, possible left atrial enlargement, possible right ventricular conduction delay. IMPRESSION Acute right hemisphere stroke. RECOMMENDATIONS The NIH stroke scale initially was 13, but she has shown improvement but still has weakness on the left. She is a candidate for IV TPA and would recommend starting IV TPA per protocol with close followup, close neuro checks and monitoring the patient in the ISC following TPA. She should not receive any antiplatelet or anticoagulants for at least 24 hours post TPA administration. We will also get a follow-up CT brain 24 hours after TPA is given. The patient also underwent CT angiography and will follow up on the results of that as well to rule out any type of large vessel occlusion. We will evaluate her further with MRI, MRA of the brain, echocardiogram, carotid ultrasound and lipid panel. MD AYESHA Rodney/MAI /1:27 PM /1:34 PM
[2017-08-09 14:07] LABS: APTT (PATIENT) 34.7 SEC (24.3-30.1); INTERNATIONAL NORMALIZED RATIO 1.2 RATIO; PROTHROMBIN TIME - PATIENT 13.1 SEC (9.8-11.6)
[2017-08-09 14:17] LABS: BANDS 4 % (0-6); NEUTROPHIL # MANUAL DIFF 16.5 TH/MM3 (1.8-7.7); POLYS (SEG NEUTROPHILS) 57 % (16-70); WBC DIFF SAMPLE 100
[2017-08-09 14:18] LABS: HDL CHOLESTEROL 12.1 MG/DL (40.0-60.0); PLATELET ESTIMATE SMEAR NORMAL (NORMAL); PLATELET MORPHOLOGY ENLARGED (NORMAL)
[2017-08-09 14:19] LABS: BURR CELLS 1+ (NORMAL); OVALOCYTES 1+ (NORMAL); SCAN/DIFF FINAL DIFF MANUAL
[2017-08-09 14:29] LABS: CREATINE KINASE 39 U/L (26-192)
[2017-08-09] MEDS ORDERED: LABETALOL HCL 100 MG/20 ML VIAL IV PUSH PRN (15:00)
--- NOTE | 2017-08-09 15:06 | RADRPT ---
EXAM DATE/TIME: 08/09/2017 13:03 [facility] COMPARISON: No previous studies available for comparison. INDICATIONS : Stroke alert; left side weakness. IV CONTRAST: 75 cc Omnipaque 350 (iohexol) IV ; Cumulative dose for multiple exams. RADIATION DOSE: 14.21 CTDIvol (mGy) ; Combined studies MEDICAL HISTORY : Hypertension. SURGICAL HISTORY : None. ENCOUNTER: Initial ACUITY: 1 day PAIN SCALE: Non-responsive LOCATION: neck Elevated flow velocities and ICA/CCA ratios have been found to correlate with increased degrees of vessel stenosis, calculated as percentage of diameter relative to a normal segment of distal ICA/CCA. TECHNIQUE: Volumetric scanning was performed using a multirow detector CT scanner. The data was post processed with a variety of visualization algorithms including full-volume maximum intensity projection, multip lanar sliding thin-slab reformation, curved-planar reformation, and surface-rendering techniques. Us ing automated exposure control and adjustment of the mA and/or kV according to patient size, radiatio n dose was kept as low as reasonably achievable to obtain optimal diagnostic quality images. DICOM f ormat image data is available electronically for review and comparison. FINDINGS: AORTIC ARCH: There is a three-vessel origin of the great vessels from the aorta. No evidence of ostial narrowing. RIGHT CAROTID: There is high-grade eccentric stenosis involving the origin of the right internal carotid artery with greater than 80% focal stenotic narrowing present. Beyond this focal proximal disease, the vessel is healthy in appearance and widely patent to the skull base. LEFT CAROTID: The common carotid artery is intact. The carotid bulb has a normal configuration without ulceration or narrowing. The internal carotid artery lumen is smooth without stenosis. The external carotid ar cory is intact. VERTEBRALS: The vertebral arteries are patent bilaterally, right side minimally dominant. No stenotic lesions ar e seen. CONCLUSION: High-grade right carotid bifurcation stenosis. No significant stenotic narrowing on the left. Sg Dalton MD on August 09, 2017 at 15:00 Board Certified Radiologist. This report was verified electronically.
--- NOTE | 2017-08-09 15:36 | RADRPT ---
EXAM DATE/TIME: 08/09/2017 14:54 [facility] COMPARISON: No previous studies available for comparison. INDICATIONS : Cerebrovascular accident. MEDICAL HISTORY : Hypercholesterolemia. Hypertension. Gastroesophageal reflux disease. SURGICAL HISTORY : Bilateral knee replacement. ENCOUNTER: Initial ACUITY: 1 day PAIN SCORE: Nonresponsive. LOCATION: Bilateral neck PEAK SYSTOLIC VELOCITIES (cm/sec): ICA/CCA RATIO: Right: 10.5 Left: 1.35 ICA: Right: 454 Left: 84 CCA: Right: 43 Left: 62 ECA: Right: 153 Left: 87 VERTEBRAL: Right: 85 antegrade Left: 62 antegrade Elevated flow velocities and ICA/CCA ratios have been found to correlate with increased degrees of vessel stenosis, calculated as percentage of diameter relative to a normal segment of distal ICA/CCA FINDINGS: RIGHT CAROTID: There is significant calcific plaquing in the right carotid bulb and proximal internal carotid artery with shadowing and limited visualization. There is evidence of turbulence. There is spectral broaden ing of the waveforms with marked interval elevation of velocity up to 454 cm/s systolic. LEFT CAROTID: Mild plaque is present with no focal stenosis. The waveforms are within normal limits. VERTEBRAL ARTERIES: Antegrade flow is seen in both vertebral arteries. MISCELLANEOUS: None. CONCLUSION: 1. 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 2. Mild plaque in the left carotid bulb with no stenosis. Song Beard MD on August 09, 2017 at 15:29 Board Certified Radiologist. This report was verified electronically.
[2017-08-09] MEDS: MORPHINE SULFATE 4 MG/ML INJ IV PUSH PRN (18:06)
[2017-08-09] MEDS: ATENOLOL 25 MG TAB PO SCH (19:54)
[2017-08-09] MEDS ORDERED: CHLORHEXIDINE GLUCONATE 4% SOLN 120 ML BTL TOP SCH (21:00)
[2017-08-10] VITALS (12 sets, daily range): BP systolic 127–145; BP diastolic 60–67; PULSE 95–102; RESP 16–21; TEMP 97.9–99.3; O2SAT 98–100
[2017-08-10] MEDS: PIPERACIL-TAZO 3.375 GM PREMIX 50 ML IV SCH ×4 (01:02→18:22)
[2017-08-10] MEDS: SODIUM CHLOR 0.9% 1000 ML INJ 1,000 ML IV SCH (03:53)
[2017-08-10] MEDS ORDERED: VANCOMYCIN INJ 1,000 MG in SODIUM CHLOR 0.9% 250 ML INJ 250 ML IV ONE (06:00)
[2017-08-10] MEDS ORDERED: ceFAZolin 2 GM PREMIX 50 ML IV ONE (06:00)
[2017-08-10] MEDS: ATENOLOL 25 MG TAB PO SCH ×3 (09:00→21:00)
[2017-08-10] MEDS: CALCIUM/VITAMIN D 250 MG/125 U TAB PO SCH (09:25)
[2017-08-10] MEDS: PANTOPRAZOLE SOD 40 MG DELAYED RELEASE TAB PO SCH (09:25)
[2017-08-10] MEDS: PRAVASTATIN SOD 40 MG TAB PO SCH (09:25)
[2017-08-10] MEDS: FERROUS SULFATE 325 MG (65 MG ELEMENTAL IRON) TAB PO SCH (09:25)
--- NOTE | 2017-08-10 09:29 | HHI.NSPN ---
(Starr Harris) Note Status Status: Progress Note (Starr Harris) Interval History Interval History This is a 87-year-old female with history of chronic low back pain and hypertension, who presents via EMS for evaluation of back pain. She had also mild altered mental status and disorientation. Patient has apparently received 2 doses of morphine extended release due to intractable back pain. She was in her pain management doctor's office last week and complained of extreme pain in lower back. From there she was transported to the ER where she received IV morphine with some relief. Apparently she has not been eating or drinking properly over the last few days due to pain and just "sitting on the couch". 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 ER evaluation noted she was hypotensive with low systolic pressures in the 80s which have responded to IV fluid bolus. She was anemic with I hemoglobin of 8, white blood cell count 14,000, with some renal insufficiency with a BUNs 79 and creatinine of 2.9. MRI of the lumbar spine show lumbar spinal stenosis. In addition she had some acute T11 fracture without retropulsion. A neurosurgical consultation was requested When I went to assess her she was very lethargic. She had a left facial droop and was unable to move her left upper and her left lower extremity. This is an acute change since she has been assisted with the the past hour and found to be functional, without focal deficits. Stroke alert was called 08/10: s/p TPA. doing much better today, more awake and alert, moving left side more. (Starr Harris) Labs, Micro, & Vital Signs Results Date Time Temp Pulse Resp B/P (MAP) Pulse Ox O2 Delivery O2 Flow Rate FiO2 08/10/17 08:00 97.9 98 17 127/64 (85) 98 08/10/17 08:00 98 08/10/17 06:00 95 08/10/17 04:00 97 08/10/17 04:00 98.8 97 19 145/67 (93) 98 08/10/17 02:00 97 08/10/17 00:00 98.7 97 18 144/67 (92) 100 08/10/17 00:00 99 08/09/17 22:00 99 08/09/17 20:10 98 Nasal Cannula 2.00 08/09/17 20:00 98.4 92 22 141/77 (98) 100 08/09/17 20:00 102 08/09/17 18:11 24 08/09/17 18:00 105 08/09/17 16:00 106 08/09/17 16:00 99.2 106 20 130/77 (94) 100 08/09/17 14:00 116 08/09/17 12:58 98.7 126 20 131/67 (88) 100 08/09/17 12:04 97.0 121 20 107/67 (80) 91 Constitutional Vital Signs Date Time Temp Pulse Resp B/P (MAP) Pulse Ox O2 Delivery O2 Flow Rate FiO2 08/10/17 08:00 97.9 98 17 127/64 (85) 98 08/10/17 08:00 98 08/10/17 06:00 95 08/10/17 04:00 97 08/10/17 04:00 98.8 97 19 145/67 (93) 98 08/10/17 02:00 97 08/10/17 00:00 98.7 97 18 144/67 (92) 100 08/10/17 00:00 99 08/09/17 22:00 99 08/09/17 20:10 98 Nasal Cannula 2.00 08/09/17 20:00 98.4 92 22 141/77 (98) 100 08/09/17 20:00 102 08/09/17 18:11 24 08/09/17 18:00 105 08/09/17 16:00 106 08/09/17 16:00 99.2 106 20 130/77 (94) 100 08/09/17 14:00 116 08/09/17 12:58 98.7 126 20 131/67 (88) 100 08/09/17 12:04 97.0 121 20 107/67 (80) 91 (Starr Harris) Physical Exam Ms. Lau is more awake today, oriented to person. Speech is slow but fluent. Following commands. Cranial nerve examination: pupils 3 mm equal, round, and reactive to light. Extra-ocular movements are intact. Facial motor appear symmetrical. Tongue protrude midline. Neck is soft and supple. Motor: moving all four extremities with mild left hemiparesis which has improved from yesterday Sensory examination reports intact to light touch x 4. (Starr Harris) Ms. Lau is more awake Speech is slow but fluent. Following commands. Cranial nerve examination: pupils 3 mm equal, round, and reactive to light. Extra-ocular movements are intact. Facial motor appear symmetrical. Tongue protrude midline. Neck is soft and supple. Motor: moving all four extremities with left hemiparesis which has improved from yesterday Sensory examination reports intact to light touch DTR's 1+ overall. Neutral response to plantar stimulation Cerebellar examination very limited due to her condition (Jose Seay MD) Medications Current Medications Current Medications Medications (Trade) Dose Ordered Sig/Nader Route PRN Reason Start Time Stop Time Status Last Admin Dose Admin IV Flush (NS Flush) 2 ml UNSCH PRN IV FLUSH FLUSH AFTER USING IV ACCESS 08/07/17 18:00 Morphine Sulfate (Morphine Inj) 2 mg Q3H PRN IV PUSH pain level 3-10 08/07/17 21:30 08/09/17 18:06 Calcium/Vitamin D (Oscal-D 250-125) 500 mg DAILY PO 08/08/17 09:00 08/09/17 08:36 Ferrous Sulfate (Ferrous Sulfate) 325 mg DAILY PO 08/08/17 09:00 08/09/17 08:36 Pravastatin Sodium (Pravachol) 40 mg DAILY PO 08/08/17 09:00 08/09/17 08:36 Pantoprazole Sodium (Protonix) 40 mg DAILY PO 08/07/17 21:30 08/09/17 08:36 Dextrose/Sodium Chloride 1,000 ml @ 84 mls/hr [id number] IV 08/09/17 11:15 08/09/17 11:15 Atenolol (Tenormin) 25 mg Q12HR PO 08/09/17 21:00 Piperacillin Sod/ Tazobactam Sod 50 ml @ 100 mls/hr Q6H IV 08/09/17 12:00 08/10/17 06:52 Lorazepam (Ativan Inj) 0.5 mg Q4H PRN IV PUSH agitation/anxiety 08/09/17 11:30 Sodium Chloride 1,000 ml @ 70 mls/hr [id number] IV 08/09/17 13:30 08/10/17 03:53 Miscellaneous Information No Heparin, Warfarin, Aspir... UNSCH PRN XX SEE DOSE INSTRUCTIONS 08/09/17 14:00 08/10/17 13:59 Nicardipine HCl 25 mg/Sodium Chloride 250 ml @ 50 mls/hr TITRATE PRN IV Blood pressure management 08/09/17 14:15 (Starr Harris) Medical Decision Making MDM Remarks 87 y/o female s/p fall 1. acute T11 compression fracture 2. acute right CVA with left hemiparesis 08/11, s/p TPA, left hemiparesis improving (Starr Harris) Plan Plan Remarks hold kyphoplasty due to acute CVA, TPA administration, Neurology following for management of stroke PT, OT, ST cont serial neuro checks (Starr Harris) Attending Statement As above She had a ischemic Stroke. Much improved after TPA T11 fracture. Continue bracing. Hold kyphoplasty due to stroke She has significant lumbar spinal stenosis. continue nonoperative treatment with therapy and adjacent inflammatory's and possibly pain management by an interventional pain specialist in the future Altered mental status Likely multifactorial associated with dehydration, pain medication and azotemia. Hypertension. Hold medication at this point. Anemia Baseline hemoglobin generally around 10.5. 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 Acute kidney injury superimposed on chronic kidney disease. Chronic kidney disease, unspecified Acute. Careful IV hydration. monitor closely urine output, BUN and creatinine Pulmonary. Continue aggressive pulmonary toilette, nasotracheal suction, and breathing treatments with nebulizers. Daily PT and OT Nutrition. Tolerating Oral diet Endocrine. Continue to Monitor serial Acu checks and SSI as needed in detail ID continue to monitor for signs of infection Continue Protonix for stress ulcer prophylaxis Continue Oscar hose and SCD's for DVT prophylaxis Further recommendations will be provided depending on the patient's clinical evaluation and follow up studies. Discussed with Dr Madison The exam, history, and the medical decision-making described in the above note were completed with the assistance of the mid-level provider. I reviewed and agree with the findings presented. I attest that I had a [id number] encounter with the patient on the same day, and personally performed and documented my assessment and findings in the medical record. (Jose Seay MD) Starr Harris Aug 10, 2017 09:29 Jose Seay MD Aug 12, 2017 18:03
--- NOTE | 2017-08-10 10:00 | ECHRPT ---
Indication: cva/tia CONCLUSIONS The left ventricular systolic function is normal with an estimated ejection fraction in the range of 55-60%. Normal left ventricular size. Mild concentric left ventricular hypertrophy. The left atrial size is moderately dilated. Trace mitral valve regurgitation. The mitral valve area by Pressure Halftime Method is 1.7 cm. Mild thickening of the mitral valve leaflets. Severe mitral annular calcification. Moderate mitral valve stenosis. Mild thickening of the aortic valve leaflets. Aortic valve mean gradient is 11 mmHg. The aortic valve is not well visualized. Diffuse calcification of the aortic valve. Mild aortic valve stenosis. BP: / HR: Rhythm: MEASUREMENTS (Male / Female) Normal Values Technical Quality:Fair 2D ECHO LV Diastolic Diameter PLAX 4.0 cm 4.2 - 5.9 / 3.9 - 5.3 cm LV Systolic Diameter PLAX 3.0 cm IVS Diastolic Thickness 1.5 cm 0.6 - 1.0 / 0.6 - 0.9 cm LVPW Diastolic Thickness 0.9 cm 0.6 - 1.0 / 0.6 - 0.9 cm LV Relative Wall Thickness 0.6 RV Internal Dim ED PLAX 3.1 cm LVOT Diameter 1.7 cm M-MODE Aortic Root Diameter MM 3.0 cm LA Systolic Diameter MM 4.8 cm LA Ao Ratio MM 1.6 AV Cusp Separation MM 1.6 cm DOPPLER AV Peak Velocity 261.0 cm/s AV Peak Gradient 27.2 mmHg AV Mean Gradient 11.0 mmHg AV Velocity Time Integral 42.3 cm LVOT Peak Velocity 132.0 cm/s LVOT Peak Gradient 7.0 mmHg LVOT Velocity Time Integral 24.4 cm AV Area Cont Eq vti 1.3 cm AV Area Cont Eq pk 1.1 cm MV Area PHT 1.7 cm TR Peak Velocity 262.0 cm/s TR Peak Gradient 27.5 mmHg Right Atrial Pressure 10.0 mmHg Pulmonary Artery Systolic Pressu 37.5 mmHg Right Ventricular Systolic Press 37.5 mmHg FINDINGS LEFT VENTRICLE The left ventricular systolic function is normal with an estimated ejection fraction in the range of 55-60%. Normal left ventricular size. Mild concentric left ventricular hypertrophy. RIGHT VENTRICLE Normal right ventricular size and systolic function. LEFT ATRIUM The left atrial size is moderately dilated. RIGHT ATRIUM The right atrial size is normal. ATRIAL SEPTUM Normal atrial septal thickness without atrial level shunting by limited color doppler interrogation. AORTA The aortic root and proximal ascending aorta are normal in size on limited imaging. MITRAL VALVE Trace mitral valve regurgitation. The mitral valve area by Pressure Halftime Method is 1.7 cm. Mild thickening of the mitral valve leaflets. Severe mitral annular calcification. Moderate mitral valve stenosis. AORTIC VALVE Mild thickening of the aortic valve leaflets. Aortic valve mean gradient is 11 mmHg. The aortic valve is not well visualized. Diffuse calcification of the aortic valve. Mild aortic valve stenosis. TRICUSPID VALVE Structurally normal tricuspid valve. No tricuspid valve stenosis or regurgitation. PULMONARY VALVE No pulmonary valve regurgitation or stenosis. VESSELS The inferior vena cava is normal in size. PERICARDIUM No pericardial effusion. Hermes Adler MD, FACC (Electronically Signed) Final Date:10 August 2017 09:58
--- NOTE | 2017-08-10 10:31 | HHI.PR ---
Subjective Remarks more oriented moving left arm/leg Objective Vitals heart reg lung cta abd s/nt ext no edema moving lue/lle no facial droop follows commands Vital Signs Date Time Temp Pulse Resp B/P (MAP) Pulse Ox O2 Delivery O2 Flow Rate FiO2 08/10/17 08:00 97.9 98 17 127/64 (85) 98 08/10/17 08:00 98 08/10/17 06:00 95 08/10/17 04:00 97 08/10/17 04:00 98.8 97 19 145/67 (93) 98 08/10/17 02:00 97 08/10/17 00:00 98.7 97 18 144/67 (92) 100 08/10/17 00:00 99 08/09/17 22:00 99 08/09/17 20:10 98 Nasal Cannula 2.00 08/09/17 20:00 98.4 92 22 141/77 (98) 100 08/09/17 20:00 102 08/09/17 18:11 24 08/09/17 18:00 105 08/09/17 16:00 106 08/09/17 16:00 99.2 106 20 130/77 (94) 100 08/09/17 14:00 116 08/09/17 12:58 98.7 126 20 131/67 (88) 100 08/09/17 12:04 97.0 121 20 107/67 (80) 91 Result Diagram: 08/09/17 1330 08/09/17 0840 Imaging Last 72 hours Impressions Chest X-Ray 08/07/17 1751 Signed Impressions: Service Date/Time: Monday, August 07, 2017 20:21 - CONCLUSION: No acute disease. Sg Abraham MD Hip and Pelvis X-Ray 08/07/17 0000 Signed Impressions: Service Date/Time: Monday, August 07, 2017 20:21 - CONCLUSION: No acute abnormality is seen. Sg Abraham MD Head CT 08/07/17 0000 Signed Impressions: Service Date/Time: Monday, August 07, 2017 20:43 - CONCLUSION: 1. No intracranial abnormality is seen. 2. Focal right sphenoid sinus disease. Sg Abraham MD Abdomen/Pelvis CT 08/07/17 0000 Signed Impressions: Service Date/Time: Monday, August 07, 2017 20:46 - CONCLUSION: 1. Left inguinal hernia containing a small segment of the proximal sigmoid colon. Significant bowel dilatation is not seen. 2. Fracture deformity at the superior aspect of T11. This appears likely either acute or subacute. There do appear to be more chronic changes at the L3 and L4 levels as described above. 3. Moderate hiatal hernia with at least a portion of this being a paraesophageal hiatal hernia. 4. Induration seen in the perinephric space especially on the right. Some of this does abut the distended gallbladder. This can be correlated with the patient's symptoms. 5. Calcified granulomas in the spleen. Sg Abraham MD A/P Problem List: (1) Delirium ICD Codes: R41.0 - Disorientation, unspecified Status: Acute Plan: 1. acute delirium 2. 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 severe right carotid artery stenosis 4. rylan. dehydration. improving 5. hypotension resolved. volume related 6. sinus tachycardia resolved 7. mod/severe lumbar stenosis with acute t11 fx and intractable pain 8. Leukocytosis 9. anemia ICU monitoring. 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 blood cx. f/u repeat wbc her long acting morphine held and prn iv ordered. will hold flexeril scd nsg consulted for fx. will need vascular for carotid dz (2) Carotid stenosis ICD Codes: I65.29 - Occlusion and stenosis of unspecified carotid artery Status: Acute (3) Acute CVA (cerebrovascular accident) ICD Codes: I63.9 - Cerebral infarction, unspecified Status: Acute (4) Hypotension ICD Codes: I95.9 - Hypotension, unspecified Status: Acute (5) RYLAN (acute kidney injury) ICD Codes: N17.9 - Acute kidney failure, unspecified Status: Acute (6) T11 vertebral fracture ICD Codes: S22.089A - Unspecified fracture of T11-T12 vertebra, initial encounter for closed fracture Status: Acute (7) Intractable low back pain ICD Codes: M54.5 - Low back pain Status: Acute (8) Lumbar spinal stenosis ICD Codes: M48.061 - Spinal stenosis, lumbar region without neurogenic claudication Status: Acute (9) Anemia ICD Codes: D64.9 - Anemia, unspecified Status: Chronic Plan: Baseline hemoglobin generally around 10.5. 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 She notes that she has used naproxen at home and given her presenting mentation she may have been taking more than she is reporting. We'll follow hemoglobin closely. Vitals stable at this point. Repeat hemoglobin last night stable. (10) Acute kidney injury superimposed on chronic kidney disease ICD Codes: N17.9 - Acute kidney failure, unspecified; N18.9 - Chronic kidney disease, unspecified Status: Acute (11) Sinus tachycardia ICD Codes: R00.0 - Tachycardia, unspecified (12) Hypertension ICD Codes: I10 - Essential (primary) hypertension Status: Chronic Problem Qualifiers (1) Anemia: (2) Hypertension: Qualified Codes: I10 - Essential (primary) hypertension Sánchez Jewell MD Aug 10, 2017 10:31
[2017-08-10] MEDS: DEXT 5%-NACL 0.9% 1000 ML INJ 1,000 ML IV SCH ×2 (11:05→23:14)
--- NOTE | 2017-08-10 13:09 | EKG ---
Date Performed: 08/09/2017 Time Performed: 13:18:37 PTAGE: 87 years EKG: SINUS TACHYCARDIA RIGHT BUNDLE BRANCH BLOCK LEFT ANTERIOR FASCICULAR BLOCK POSSIBLE SEPTAL MYOCARDIAL INFARCTION , OF INDETERMINATE AGE ABNORMAL ECG PREVIOUS TRACING : 08/07/2017 18.00 Compared to prior tracing no significant change DOCTOR: Tim Elder Interpretating Date/Time 08/10/2017 13:08:38
--- NOTE | 2017-08-10 15:02 | RADRPT ---
EXAM DATE/TIME: 08/10/2017 14:04 [facility] COMPARISON: CT BRAIN W/O CONTRAST, August 09, 2017, 13:01. INDICATIONS : 24 hour post TPA. RADIATION DOSE: 56.40 CTDIvol (mGy) MEDICAL HISTORY : Hypertension. SURGICAL HISTORY : None. ENCOUNTER: Subsequent ACUITY: 1 day PAIN SCALE: 0/10 LOCATION: cranial TECHNIQUE: Multiple contiguous axial images were obtained of the head. Using automated exposure control and adj ustment of the mA and/or kV according to patient size, radiation dose was kept as low as reasonably a chievable to obtain optimal diagnostic quality images. DICOM format image data is available electro nically for review and comparison. FINDINGS: CEREBRUM: Moderate cerebral volume loss. Newton-white matter differentiation appears maintained. The ventricles a re normal for degree of atrophy. No evidence of midline shift, mass lesion, hemorrhage or acute infa rction. No extra-axial fluid collections are seen. POSTERIOR FOSSA: The cerebellum and brainstem are intact. The 4th ventricle is midline. The cerebellopontine angle i s unremarkable. EXTRACRANIAL: The visualized portion of the orbits is intact. SKULL: The calvaria is intact. No evidence of skull fracture. CONCLUSION: 1. Stable senescent changes without evidence for intercurrent hemorrhage status post TPA administrati on. Jose Chavez MD on August 10, 2017 at 14:59 Board Certified Radiologist. This report was verified electronically.
--- NOTE | 2017-08-10 16:20 | HHI.PR ---
Review/Management Diagnosis right hemisphere stroke improved after iv TPA right carotid stenosis T11 compression Fx Plan start asa 325 mg daily vascular surgery consult regarding right carotid stenosis monitor telemetry to r/o afib. Diagnosis/Plan: Subjective Subjective Comments No acute events reported Improved left sided strength, but still feels has mild weakness left side Active Medications Current Medications Medications (Trade) Dose Ordered Sig/Nader Route Start Time Stop Time Status Last Admin (NS Flush) 2 ml UNSCH PRN IV FLUSH 08/07/17 18:00 (Morphine Inj) 2 mg Q3H PRN IV PUSH 08/07/17 21:30 08/09/17 18:06 (Oscal-D 250-125) 500 mg DAILY PO 08/08/17 09:00 08/10/17 09:25 (Ferrous Sulfate) 325 mg DAILY PO 08/08/17 09:00 08/10/17 09:25 (Pravachol) 40 mg DAILY PO 08/08/17 09:00 08/10/17 09:25 (Protonix) 40 mg DAILY PO 08/07/17 21:30 08/10/17 09:25 Dextrose/Sodium Chloride 1,000 ml @ 84 mls/hr [id number] IV 08/09/17 11:15 08/10/17 11:05 (Tenormin) 25 mg Q12HR PO 08/09/17 21:00 Piperacillin Sod/ Tazobactam Sod 50 ml @ 100 mls/hr Q6H IV 08/09/17 12:00 08/10/17 11:52 (Ativan Inj) 0.5 mg Q4H PRN IV PUSH 08/09/17 11:30 Nicardipine HCl 25 mg/Sodium Chloride 250 ml @ 50 mls/hr TITRATE PRN IV 08/09/17 14:15 Allergies Allergies Coded Allergies No Known Allergies (Verified Allergy, Unknown, 08/07/17) Exam I&O / VS Vital Signs Date Time Temp Pulse Resp B/P (MAP) Pulse Ox O2 Delivery O2 Flow Rate FiO2 08/10/17 14:00 98 08/10/17 12:00 96 08/10/17 12:00 98.6 96 20 130/60 (83) 100 08/10/17 10:00 97 08/10/17 08:00 97.9 98 17 127/64 (85) 98 08/10/17 08:00 98 08/10/17 06:00 95 08/10/17 04:00 97 08/10/17 04:00 98.8 97 19 145/67 (93) 98 08/10/17 02:00 97 08/10/17 00:00 98.7 97 18 144/67 (92) 100 08/10/17 00:00 99 08/09/17 22:00 99 08/09/17 20:10 98 Nasal Cannula 2.00 08/09/17 20:00 98.4 92 22 141/77 (98) 100 08/09/17 20:00 102 08/09/17 18:11 24 08/09/17 18:00 105 Exam Comments alert, speech dysarthric CN intact MOTOR 5/5 RUE, 4/5 LUE Objective Radiology Results CT brain 24 hr post TPA--no acute change, no hemorrhage CTA neck--right carotid stenosis CTA brain--no large vessel occlusion David Arrieta PhD Aug 10, 2017 16:20
[2017-08-10] MEDS ORDERED: GADODIAMIDE PF 287 MG/ML 5 ML VIAL (for RAD MRI) IVCONTRAST ONE ×2 (18:08→18:12)
--- NOTE | 2017-08-10 18:20 | RADRPT ---
EXAM DATE/TIME: 08/10/2017 17:31 [facility] COMPARISON: No previous studies available for comparison. INDICATIONS : Altered mental status. CONTRAST: 14 cc Omniscan (gadodiamide) IV MEDICAL HISTORY : Hypertension. Hypercholesterolemia. SURGICAL HISTORY : Total knee replacement, left. Total knee replacement, right. ENCOUNTER: Initial ACUITY: 1 day PAIN SCORE: 0/10 LOCATION: cranial TECHNIQUE: Multiplanar, multisequence MRI of the brain was performed both prior to and following the administrat ion of paramagnetic contrast. FINDINGS: Past several small acute punctate infarcts in the posterior right frontal lobe and larger infarct in the right parieto-occipital region measuring up to about 3 cm in AP diameter. There is mild to modera te chronic white matter ischemic change. There is no mass effect or midline shift. No hydrocephalus. No acute hemorrhage is identified. Exam is degraded by some motion artifact. No abnormal enhancement post contrast although there is motion degradation. CONCLUSION: Acute small punctate infarcts in the posterior right frontal lobe and larger area of infarction in th e right parieto-occipital region measuring up to about 3 cm in diameter without hemorrhage, mass effe ct or shift. Mild to moderate chronic white matter ischemic changes. No acute hemorrhage. Kimo Ashby MD on August 10, 2017 at 18:15 Board Certified Radiologist. This report was verified electronically.
[2017-08-10] MEDS: ASPIRIN EC 325 MG TABEC PO SCH (19:00)
[2017-08-10 20:33] LABS: AUTOMATED NEUTROPHIL # 6.5 TH/MM3 (1.8-7.7); BASOPHIL % 0.1 % (0.0-2.0); EOSINOPHIL # 0.1 TH/MM3 (0-0.4); EOSINOPHIL % 0.8 % (0.0-4.0); HEMATOCRIT 24.9 % (35.0-46.0); LYMPH % 12.3 % (9.0-44.0); LYMPHOCYTE # 1.4 TH/MM3 (1.0-4.8); MEAN CELL VOLUME 95.6 FL (80.0-100.0); MEAN CORPUSCULAR HEMOGLOBIN 30.6 PG (27.0-34.0); MONO % 30.3 % (0.0-8.0); NEUT % 56.5 % (16.0-70.0); PLATELET COUNT 199 TH/MM3 (150-450); RED CELL DISTRIBUTION WIDTH 13.4 % (11.6-17.2); WHITE BLOOD COUNT 11.6 TH/MM3 (4.0-11.0)
[2017-08-10 20:42] LABS: HEMO FLAGS AUTO DIFF
[2017-08-10 22:08] LABS: BURR CELLS 1+ (NORMAL); KERATOCYTES OCC (NORMAL); OVALOCYTES 1+ (NORMAL); PLATELET ESTIMATE SMEAR NORMAL (NORMAL)
[2017-08-10 22:09] LABS: PLATELET MORPHOLOGY ENLARGED (NORMAL); SCAN/DIFF AUTO DIFF CONFIRMED
[2017-08-10 23:56] LABS: BICARBONATE 27.8 MEQ/L (21.0-32.0)
[2017-08-10 23:59] LABS: POTASSIUM 2.6 MEQ/L (3.5-5.1)
[2017-08-11] VITALS (14 sets, daily range): BP systolic 121–141; BP diastolic 60–65; PULSE 85–100; RESP 13–23; TEMP 98–99.3; O2SAT 98–100
[2017-08-11] MEDS: PIPERACIL-TAZO 3.375 GM PREMIX 50 ML IV SCH ×4 (00:32→17:58)
[2017-08-11] MEDS: POTASSIUM CHLOR 20 MEQ PREMIX 100 ML IV SCH ×4 (00:50→06:30)
[2017-08-11] MEDS: ATENOLOL 25 MG TAB PO SCH (09:00)
[2017-08-11] MEDS: PRAVASTATIN SOD 40 MG TAB PO SCH (09:10)
[2017-08-11] MEDS: ASPIRIN EC 325 MG TABEC PO SCH (09:10)
[2017-08-11] MEDS: FERROUS SULFATE 325 MG (65 MG ELEMENTAL IRON) TAB PO SCH (09:12)
[2017-08-11] MEDS: PANTOPRAZOLE SOD 40 MG DELAYED RELEASE TAB PO SCH (09:13)
[2017-08-11] MEDS: CALCIUM/VITAMIN D 250 MG/125 U TAB PO SCH (09:15)
--- NOTE | 2017-08-11 10:00 | PD.VS.CON ---
History of Present Illness Chief Complaint: CVA Consult Requested by: Medical service and neurology History of Present Illness 87 yo lady admitted 08/07 with LBP and weakness, was found to have acute R CVA. The patient is responsive but very somnolent this morning so history obtained from chart. She was admitted with AMS and T11 compression fracture and then on 08/09 was found to have acute L hemiparesis and a stroke alert was called. TPA was initiated. Imaging w/u revealed R carotid stenosis. Past/Family/Social History Past Medical History DJD aortic stenosis CRI Dunn's esophagus PUD XOL HTN Osteoporosis Past Surgical History endoscopies Social History former smoker reportedly lives alone Family History NC Home Medications Active Scripts Walker/Adult/Folding (Walker/Adult/Folding) 1 Mis Mis, EA .ROUTE DIRECTED, # 1 0 Refills Prov:Marcellus Greer MD 08/03/17 Naproxen (Naproxen) 500 Mg Tab, 500 MG PO BID for 10 Days, #20 TAB 0 Refills Prov:Marcellus Greer MD 08/03/17 Lidocaine Patch 12 HR (Lidocaine Patch 12 HR) 5 % Patch, 1 PATCH TOPICAL DAILY Y for PAIN, #1 BOX 1 Refill Remove patch after 12 hours Prov:Marcellus Greer MD 08/03/17 Hydrocodone-Acetaminophen (Lortab) 5-325 Mg Tab, 1 TAB PO Q6H Y for PAIN, #15 TAB 0 Refills Prov:Marcellus Greer MD 08/03/17 Reported Medications Morphine ER (Morphine ER) 15 Mg Tab, 15 MG PO BID for Pain Management, TAB 0 Refills 08/07/17 Cobalamine Combinations (Vitamin D55-Tvack Acid) 500-400 Mcg Tab, 1 TAB PO DAILY for Nutritional Supplement, TAB 0 Refills 08/03/17 Ferrous Sulfate (Iron) 325 Mg Cap, 325 MG PO DAILY for Nutritional Supplement, # 30 TAB 0 Refills 08/03/17 Calcium Carbonate-Cholecalciferol (Calcium 500 +D) 500-400 Mg-Unit Tab, 1 TAB PO DAILY for Calcium Supplement, TAB 0 Refills 08/03/17 Fish Oil-Cholecalciferol (Fish Oil + D3) 1,200-1,000 Mg-Unit Cap, 1 CAP PO DAILY for Nutritional Supplement, #30 CAP 0 Refills 08/03/17 Omeprazole (Omeprazole) 20 Mg Tab, 20 MG PO DAILY, #30 TAB 0 Refills 08/03/17 Simvastatin (Simvastatin) 20 Mg Tab, 20 MG PO DAILY for Cholesterol Management, #30 TAB 0 Refills 08/03/17 Amlodipine (Amlodipine) 5 Mg Tab, 5 MG PO DAILY for Blood Pressure Management, # 30 TAB 0 Refills 08/03/17 Atenolol-Chlorthalidone (Atenolol-Chlorthalidone) 50-25 Mg Tab, 0.5 TAB PO DAILY for Blood Pressure Management, #30 TAB 0 Refills 08/03/17 Tramadol (Ultram) 50 Mg Tab, 50 MG PO Q4H Y for PAIN, TAB 0 Refills 08/03/17 Cyclobenzaprine (Flexeril) 10 Mg Tab, 10 MG PO TID for Muscle Spasm, #90 TAB 0 Refills 08/03/17 Hydrocodone-Acetaminophen (Hydrocodone-Acetaminophen) 5-325 mg Tab, 1 TAB PO Q4H Y for PAIN, TAB 0 Refills 08/03/17 Coded Allergies: No Known Allergies (Verified Allergy, Unknown, 08/07/17) Review of Systems ROS Limitations: Altered Mental Status Physical Exam Vitals/I&O Date Time Temp Pulse Resp B/P (MAP) Pulse Ox O2 Delivery O2 Flow Rate FiO2 08/11/17 09:31 100 Nasal Cannula 2.00 08/11/17 06:00 90 08/11/17 04:00 98.0 94 20 141/65 (90) 99 08/11/17 04:00 94 08/11/17 02:00 87 08/11/17 00:59 100 Nasal Cannula 2.00 08/11/17 00:00 100 08/11/17 00:00 98.0 100 18 121/60 (80) 98 08/10/17 22:00 98 08/10/17 20:00 99.3 97 16 134/65 (88) 100 08/10/17 20:00 99 08/10/17 18:00 102 08/10/17 16:00 98.2 96 21 136/62 (86) 100 08/10/17 16:00 96 08/10/17 14:00 98 08/10/17 12:00 96 08/10/17 12:00 98.6 96 20 130/60 (83) 100 08/10/17 10:00 97 08/11/17 08/11/17 08/11/17 06:59 14:59 22:59 Intake Total 1666 ml 100 ml Output Total 700 ml Balance 966 ml 100 ml Neuro: somnolent but MAURICIO L facial asymmetry Slight L UE weakness (4+/5) Neck: Trachea midline Heart: + systolic ejection murmur Lungs: + rhonchi bilaterally Abdomen: nontender Vascular: palapble UE pulses Laboratory Tests Test 08/10/17 20:15 08/10/17 22:30 White Blood Count 11.6 Red Blood Count 2.60 Hemoglobin 8.0 Hematocrit 24.9 Mean Corpuscular Volume 95.6 Mean Corpuscular Hemoglobin 30.6 Mean Corpuscular Hemoglobin Concent 32.0 Red Cell Distribution Width 13.4 Platelet Count 199 Mean Platelet Volume 8.7 Neutrophils (%) (Auto) 56.5 Lymphocytes (%) (Auto) 12.3 Monocytes (%) (Auto) 30.3 Eosinophils (%) (Auto) 0.8 Basophils (%) (Auto) 0.1 Neutrophils # (Auto) 6.5 Lymphocytes # (Auto) 1.4 Monocytes # (Auto) 3.5 Eosinophils # (Auto) 0.1 Basophils # (Auto) 0.0 CBC Comment AUTO DIFF Differential Comment AUTO DIFF CONFIRMED Platelet Estimate NORMAL Platelet Morphology Comment ENLARGED Ovalocytes 1+ Raymond Cells 1+ Keratocytes OCC Blood Urea Nitrogen 17 Creatinine 0.71 Random Glucose 147 Calcium Level 8.6 Sodium Level 147 Potassium Level 2.6 Chloride Level 111 Carbon Dioxide Level 27.8 Anion Gap 8 Estimat Glomerular Filtration Rate 78 Date/Time Source Procedure Growth Status 08/10/17 20:15 Blood Peripheral Aerobic Blood Culture Pending Received 08/10/17 20:15 Blood Peripheral Anaerobic Blood Culture Pending Received Last [address] 08/10/17 1400 Signed Impressions: Service Date/Time: Thursday, August 10, 2017 14:04 - CONCLUSION: 1. Stable senescent changes without evidence for intercurrent hemorrhage status post TPA administration. Jose Chavez MD Brain MRI 08/10/17 0000 Signed Impressions: Service Date/Time: Thursday, August 10, 2017 17:31 - CONCLUSION: Acute small punctate infarcts in the posterior right frontal lobe and larger area of infarction in the right parieto-occipital region measuring up to about 3 cm in diameter without hemorrhage, mass effect or shift. Mild to moderate chronic white matter ischemic changes. No acute hemorrhage. Kimo Ashby MD Assessment and Plan Plan Acute R hemispheric CVA with improving neuro status after timely administration of TPA CTA of her neck shows R ICA stenosis. Anatomically, would be good candidate for R CEA but high risk for worsening of CVA/intraoperative hemorrhagic conversion given recent TPA, persistent defect, and 3 cm intracranial acute lesion. I think medical management for now and continued monitoring. Would consider CEA later in the week if no other neuro events. Will need to discuss with family risks/benefits of prophylactic operation. Homer Harris MD FACS RPVI loading unit tool setter [facility] - Heart and Vascular Surgery at [facility] [phone] Homer Harris MD Aug 11, 2017 09:59
--- NOTE | 2017-08-11 10:04 | HHI.PR ---
Review/Management Diagnosis right hemisphere stroke improved after iv TPA right carotid stenosis T11 compression Fx Diagnosis/Plan: (1) Acute ischemic right MCA stroke ICD Codes: I63.511 - Cerebral infarction due to unspecified occlusion or stenosis of right middle cerebral artery Status: Acute Plan: s/p iv tpa mri brain with rt mca strokes 2/2 rt carotid dz follow tele to r/o afib as well no ich recs aspirin start heparin subq reviewed vasc surg eval bp in range f/u K levels avoid benzos watch in icu today p.t./s.t. sit up in chair d/w rn (2) Carotid stenosis ICD Codes: I65.29 - Occlusion and stenosis of unspecified carotid artery Status: Acute (3) RYLAN (acute kidney injury) ICD Codes: N17.9 - Acute kidney failure, unspecified Status: Acute (4) Lumbar spinal stenosis ICD Codes: M48.061 - Spinal stenosis, lumbar region without neurogenic claudication Status: Chronic Subjective Subjective Comments No acute events reported sleepy; received ativan overnight No headache No chest pain No dyspnea Active Medications Current Medications Medications (Trade) Dose Ordered Sig/Nader Route Start Time Stop Time Status Last Admin (NS Flush) 2 ml UNSCH PRN IV FLUSH 08/07/17 18:00 (Morphine Inj) 2 mg Q3H PRN IV PUSH 08/07/17 21:30 08/09/17 18:06 (Oscal-D 250-125) 500 mg DAILY PO 08/08/17 09:00 08/11/17 09:15 (Ferrous Sulfate) 325 mg DAILY PO 08/08/17 09:00 08/11/17 09:12 (Pravachol) 40 mg DAILY PO 08/08/17 09:00 08/11/17 09:10 (Protonix) 40 mg DAILY PO 08/07/17 21:30 08/11/17 09:13 Dextrose/Sodium Chloride 1,000 ml @ 84 mls/hr [id number] IV 08/09/17 11:15 08/10/17 23:14 Piperacillin Sod/ Tazobactam Sod 50 ml @ 100 mls/hr Q6H IV 08/09/17 12:00 08/11/17 05:33 (Ativan Inj) 0.5 mg Q4H PRN IV PUSH 08/09/17 11:30 08/10/17 16:46 Nicardipine HCl 25 mg/Sodium Chloride 250 ml @ 50 mls/hr TITRATE PRN IV 08/09/17 14:15 (Ecotrin Ec) 325 mg DAILY PO 08/10/17 16:45 08/11/17 09:10 Allergies Allergies Coded Allergies No Known Allergies (Verified Allergy, Unknown, 08/07/17) Exam I&O / VS 08/11/17 08/11/17 08/12/17 15:00 23:00 07:00 Intake Total 100 ml Balance 100 ml IV Total 100 ml Vital Signs Date Time Temp Pulse Resp B/P (MAP) Pulse Ox O2 Delivery O2 Flow Rate FiO2 08/11/17 09:31 100 Nasal Cannula 2.00 08/11/17 06:00 90 08/11/17 04:00 98.0 94 20 141/65 (90) 99 08/11/17 04:00 94 08/11/17 02:00 87 08/11/17 00:59 100 Nasal Cannula 2.00 08/11/17 00:00 100 08/11/17 00:00 98.0 100 18 121/60 (80) 98 08/10/17 22:00 98 08/10/17 20:00 99.3 97 16 134/65 (88) 100 08/10/17 20:00 99 08/10/17 18:00 102 08/10/17 16:00 98.2 96 21 136/62 (86) 100 08/10/17 16:00 96 08/10/17 14:00 98 08/10/17 12:00 96 08/10/17 12:00 98.6 96 20 130/60 (83) 100 Psychiatric: Cooperative Exam Comments drowsy, easily alerts, ox 2, not to date, follows, os-3mm sluggish surgical cataract extraction change, od 3mm-2.5, reduced left nlf, left hemiparesis 3-4/5 Objective Micro and Labs Laboratory Tests Test 08/10/17 20:15 08/10/17 22:30 White Blood Count 11.6 Red Blood Count 2.60 Hemoglobin 8.0 Hematocrit 24.9 Mean Corpuscular Volume 95.6 Mean Corpuscular Hemoglobin 30.6 Mean Corpuscular Hemoglobin Concent 32.0 Red Cell Distribution Width 13.4 Platelet Count 199 Mean Platelet Volume 8.7 Neutrophils (%) (Auto) 56.5 Lymphocytes (%) (Auto) 12.3 Monocytes (%) (Auto) 30.3 Eosinophils (%) (Auto) 0.8 Basophils (%) (Auto) 0.1 Neutrophils # (Auto) 6.5 Lymphocytes # (Auto) 1.4 Monocytes # (Auto) 3.5 Eosinophils # (Auto) 0.1 Basophils # (Auto) 0.0 CBC Comment AUTO DIFF Differential Comment AUTO DIFF CONFIRMED Platelet Estimate NORMAL Platelet Morphology Comment ENLARGED Ovalocytes 1+ Raymond Cells 1+ Keratocytes OCC Blood Urea Nitrogen 17 Creatinine 0.71 Random Glucose 147 Calcium Level 8.6 Sodium Level 147 Potassium Level 2.6 Chloride Level 111 Carbon Dioxide Level 27.8 Anion Gap 8 Estimat Glomerular Filtration Rate 78 Date/Time Source Procedure Growth Status 08/10/17 20:15 Blood Peripheral Aerobic Blood Culture Pending Received 08/10/17 20:15 Blood Peripheral Anaerobic Blood Culture Pending Received Problem Qualifiers (1) Carotid stenosis: Qualified Codes: I65.21 - Occlusion and stenosis of right carotid artery Theo Babin MD Aug 11, 2017 10:04
--- NOTE | 2017-08-11 10:06 | HHI.PR ---
Subjective Remarks lying in bed. follows commands not eating much Objective Vitals heart reg lung cta abd s/nt ext no edema neuro.moving left arm/leg more oriented Vital Signs Date Time Temp Pulse Resp B/P (MAP) Pulse Ox O2 Delivery O2 Flow Rate FiO2 08/11/17 09:31 100 Nasal Cannula 2.00 08/11/17 06:00 90 08/11/17 04:00 98.0 94 20 141/65 (90) 99 08/11/17 04:00 94 08/11/17 02:00 87 08/11/17 00:59 100 Nasal Cannula 2.00 08/11/17 00:00 100 08/11/17 00:00 98.0 100 18 121/60 (80) 98 08/10/17 22:00 98 08/10/17 20:00 99.3 97 16 134/65 (88) 100 08/10/17 20:00 99 08/10/17 18:00 102 08/10/17 16:00 98.2 96 21 136/62 (86) 100 08/10/17 16:00 96 08/10/17 14:00 98 08/10/17 12:00 96 08/10/17 12:00 98.6 96 20 130/60 (83) 100 08/11/17 08/11/17 08/12/17 15:00 23:00 07:00 Intake Total 100 ml Balance 100 ml IV Total 100 ml Result Diagram: 08/10/17201408/10/17 2230 Imaging Last 72 hours Impressions Chest X-Ray 08/07/17 1751 Signed Impressions: Service Date/Time: Monday, August 07, 2017 20:21 - CONCLUSION: No acute disease. Sg Abraham MD Hip and Pelvis X-Ray 08/07/17 0000 Signed Impressions: Service Date/Time: Monday, August 07, 2017 20:21 - CONCLUSION: No acute abnormality is seen. Sg Abraham MD Head CT 08/07/17 0000 Signed Impressions: Service Date/Time: Monday, August 07, 2017 20:43 - CONCLUSION: 1. No intracranial abnormality is seen. 2. Focal right sphenoid sinus disease. Sg Abraham MD Abdomen/Pelvis CT 08/07/17 0000 Signed Impressions: Service Date/Time: Monday, August 07, 2017 20:46 - CONCLUSION: 1. Left inguinal hernia containing a small segment of the proximal sigmoid colon. Significant bowel dilatation is not seen. 2. Fracture deformity at the superior aspect of T11. This appears likely either acute or subacute. There do appear to be more chronic changes at the L3 and L4 levels as described above. 3. Moderate hiatal hernia with at least a portion of this being a paraesophageal hiatal hernia. 4. Induration seen in the perinephric space especially on the right. Some of this does abut the distended gallbladder. This can be correlated with the patient's symptoms. 5. Calcified granulomas in the spleen. Sg Abraham MD A/P Problem List: (1) Delirium ICD Codes: R41.0 - Disorientation, unspecified Status: Acute Plan: 1. acute delirium 2. 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 Mild to moderate chronic white matter ischemic changes. No acute hemorrhage. 3. severe right carotid artery stenosis 4. rylan. dehydration. improving 5. hypotension resolved. volume related 6. sinus tachycardia resolved 7. mod/severe lumbar stenosis with acute t11 fx and intractable pain 8. Leukocytosis 9. anemia 10. hypokalemia ICU monitoring. neuro checks swallow eval noted: and resume diet as tolerated cardene gtt prn for sbp over 170 IVF property assessment monitor cont abx. blood cx. fu. her long acting morphine held and prn iv ordered. will hold flexeril scd nsg consulted for fx. vascular consulted for Carotid dz replace kcl medically ok for 5N. check with neurol (2) Carotid stenosis ICD Codes: I65.29 - Occlusion and stenosis of unspecified carotid artery Status: Acute (3) Acute CVA (cerebrovascular accident) ICD Codes: I63.9 - Cerebral infarction, unspecified Status: Acute (4) Hypotension ICD Codes: I95.9 - Hypotension, unspecified Status: Acute (5) RYLAN (acute kidney injury) ICD Codes: N17.9 - Acute kidney failure, unspecified Status: Acute (6) T11 vertebral fracture ICD Codes: S22.089A - Unspecified fracture of T11-T12 vertebra, initial encounter for closed fracture Status: Acute (7) Intractable low back pain ICD Codes: M54.5 - Low back pain Status: Acute (8) Lumbar spinal stenosis ICD Codes: M48.061 - Spinal stenosis, lumbar region without neurogenic claudication Status: Acute (9) Anemia ICD Codes: D64.9 - Anemia, unspecified Status: Chronic Plan: Baseline hemoglobin generally around 10.5. 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 She notes that she has used naproxen at home and given her presenting mentation she may have been taking more than she is reporting. We'll follow hemoglobin closely. Vitals stable at this point. Repeat hemoglobin last night stable. (10) Acute kidney injury superimposed on chronic kidney disease ICD Codes: N17.9 - Acute kidney failure, unspecified; N18.9 - Chronic kidney disease, unspecified Status: Acute (11) Sinus tachycardia ICD Codes: R00.0 - Tachycardia, unspecified (12) Hypertension ICD Codes: I10 - Essential (primary) hypertension Status: Chronic Problem Qualifiers (1) Anemia: (2) Hypertension: Qualified Codes: I10 - Essential (primary) hypertension Sánchez Jewell MD Aug 11, 2017 10:06
[2017-08-11 11:46] LABS: AUTOMATED NEUTROPHIL # 4.9 TH/MM3 (1.8-7.7); BASOPHIL % 0.5 % (0.0-2.0); EOSINOPHIL # 0.1 TH/MM3 (0-0.4); EOSINOPHIL % 1.6 % (0.0-4.0); HEMATOCRIT 22.8 % (35.0-46.0); LYMPH % 16.9 % (9.0-44.0); LYMPHOCYTE # 1.5 TH/MM3 (1.0-4.8); MEAN CELL VOLUME 92.7 FL (80.0-100.0); MEAN CORPUSCULAR HEMOGLOBIN 31.5 PG (27.0-34.0); PLATELET COUNT 203 TH/MM3 (150-450); RED BLOOD COUNT 2.46 MIL/MM3 (4.00-5.30); RED CELL DISTRIBUTION WIDTH 13.6 % (11.6-17.2); WHITE BLOOD COUNT 9.1 TH/MM3 (4.0-11.0)
[2017-08-11 11:48] LABS: HEMO FLAGS AUTO DIFF
[2017-08-11] MEDS: DEXT 5%-NACL 0.9% 1000 ML INJ 1,000 ML IV SCH (12:09)
[2017-08-11 12:13] LABS: BICARBONATE 27.9 MEQ/L (21.0-32.0); POTASSIUM 3.1 MEQ/L (3.5-5.1)
[2017-08-11 12:37] LABS: BANDS 7 % (0-6); EOSINOPHILS 3 % (0-4); MYELOCYTES 1 % (0-0); NEUTROPHIL # MANUAL DIFF 6.3 TH/MM3 (1.8-7.7); PLATELET ESTIMATE SMEAR NORMAL (NORMAL); PLATELET MORPHOLOGY NORMAL (NORMAL); POLYS (SEG NEUTROPHILS) 61 % (16-70); SCAN/DIFF FINAL DIFF MANUAL; WBC DIFF SAMPLE 100
[2017-08-11] MEDS ORDERED: POTASSIUM CHLORIDE 20 MEQ CONTROLLED RELEASE TAB PO ONE (14:30)
[2017-08-11] MEDS: D5-1/2 NS + KCL 20 MEQ INJ 1,000 ML IV SCH (15:46)
--- NOTE | 2017-08-11 17:32 | HHI.NSPN ---
History Chief Complaint: no complaints Interval History 87-year-old female status post fall with secondary T11 compression fracture. Acute right CVA with secondary left hemiparesis. Status post TPA Exam Results Vital Signs Date Time Temp Pulse Resp B/P (MAP) Pulse Ox O2 Delivery O2 Flow Rate FiO2 08/11/17 14:00 94 08/11/17 12:00 98.1 14 140/65 (90) 100 08/11/17 09:31 Nasal Cannula 2.00 Intake and Output 08/11/17 08/11/17 08/11/17 07:59 15:59 23:59 Intake Total 838 ml 951 ml Output Total 700 ml Balance 138 ml 951 ml Physical Examination Ms. Lau is more awake today, oriented to person. Speech is slow but fluent, mild dysarthria. Following commands. Cranial nerve examination: pupils 3 mm equal, round, and reactive to light. Extra-ocular movements are intact. Facial motor appear symmetrical. Tongue protrude midline. Left gaze deficits. Possible left hemianopsia Neck is soft and supple. Motor: moving all four extremities with mild to moderate left hemiparesis Sensory examination reports intact to light touch x 4. Lab, Micro, Other Results Laboratory Tests Test 08/10/17 20:15 08/10/17 22:30 08/11/17 10:57 White Blood Count 11.6 TH/MM3 9.1 TH/MM3 Red Blood Count 2.60 MIL/MM3 2.46 MIL/MM3 Hemoglobin 8.0 GM/DL 7.7 GM/DL Hematocrit 24.9 % 22.8 % Mean Corpuscular Volume 95.6 FL 92.7 FL Mean Corpuscular Hemoglobin 30.6 PG 31.5 PG Mean Corpuscular Hemoglobin Concent 32.0 % 34.0 % Red Cell Distribution Width 13.4 % 13.6 % Platelet Count 199 TH/MM3 203 TH/MM3 Mean Platelet Volume 8.7 FL 9.0 FL Neutrophils (%) (Auto) 56.5 % 54.0 % Lymphocytes (%) (Auto) 12.3 % 16.9 % Monocytes (%) (Auto) 30.3 % 27.0 % Eosinophils (%) (Auto) 0.8 % 1.6 % Basophils (%) (Auto) 0.1 % 0.5 % Neutrophils # (Auto) 6.5 TH/MM3 4.9 TH/MM3 Lymphocytes # (Auto) 1.4 TH/MM3 1.5 TH/MM3 Monocytes # (Auto) 3.5 TH/MM3 2.5 TH/MM3 Eosinophils # (Auto) 0.1 TH/MM3 0.1 TH/MM3 Basophils # (Auto) 0.0 TH/MM3 0.0 TH/MM3 CBC Comment AUTO DIFF AUTO DIFF Differential Comment AUTO DIFF CONFIRMED FINAL DIFF MANUAL Platelet Estimate NORMAL NORMAL Platelet Morphology Comment ENLARGED NORMAL Ovalocytes 1+ [place] Cells 1+ Keratocytes OCC Blood Urea Nitrogen 17 MG/DL 13 MG/DL Creatinine 0.71 MG/DL 0.70 MG/DL Random Glucose 147 MG/DL 117 MG/DL Calcium Level 8.6 MG/DL 9.2 MG/DL Sodium Level 147 MEQ/L 147 MEQ/L Potassium Level 2.6 MEQ/L 3.1 MEQ/L Chloride Level 111 MEQ/L 111 MEQ/L Carbon Dioxide Level 27.8 MEQ/L 27.9 MEQ/L Anion Gap 8 MEQ/L 8 MEQ/L Estimat Glomerular Filtration Rate 78 ML/MIN 79 ML/MIN Differential Total Cells Counted 100 Neutrophils % (Manual) 61 % Band Neutrophils % 7 % Lymphocytes % 16 % Monocytes % 12 % Eosinophils % 3 % Neutrophils # (Manual) 6.3 TH/MM3 Myelocytes 1 % Medical Decision Making Impression and Plan Impression: 1. Stable neurologic exam status post right CVA, T11 compression fracture Plan: [place]illard mobilized out of bed with TLSO brace. Kyphoplasty deferred at this point due to CVA, clinical status. Gradually improving with conservative treatment. Donald Cotton MD Aug 11, 2017 17:32
[2017-08-11] MEDS: HEPARIN SODIUM - SQ 10,000 UNITS/ML VIAL SQ SCH (20:57)
[2017-08-11] MEDS: MORPHINE SULFATE 4 MG/ML INJ IV PUSH PRN (21:46)
[2017-08-12] VITALS (11 sets, daily range): BP systolic 127–138; BP diastolic 62–102; PULSE 94–106; RESP 14–24; TEMP 97.8–98.2; O2SAT 97–100
[2017-08-12] MEDS: PIPERACIL-TAZO 3.375 GM PREMIX 50 ML IV SCH ×2 (00:24→05:36)
[2017-08-12] MEDS: MORPHINE SULFATE 4 MG/ML INJ IV PUSH PRN (00:24)
[2017-08-12] MEDS: D5-1/2 NS + KCL 20 MEQ INJ 1,000 ML IV SCH ×2 (02:25→10:30)
[2017-08-12 05:36] LABS: BICARBONATE 29.8 MEQ/L (21.0-32.0); POTASSIUM 3.5 MEQ/L (3.5-5.1)
[2017-08-12] MEDS: PRAVASTATIN SOD 40 MG TAB PO SCH (08:43)
[2017-08-12] MEDS: ASPIRIN EC 325 MG TABEC PO SCH (08:43)
[2017-08-12] MEDS: FERROUS SULFATE 325 MG (65 MG ELEMENTAL IRON) TAB PO SCH (08:43)
[2017-08-12] MEDS: HEPARIN SODIUM - SQ 10,000 UNITS/ML VIAL SQ SCH ×2 (08:43→20:48)
[2017-08-12] MEDS: PANTOPRAZOLE SOD 40 MG DELAYED RELEASE TAB PO SCH (08:43)
[2017-08-12] MEDS: CALCIUM/VITAMIN D 250 MG/125 U TAB PO SCH (08:43)
--- NOTE | 2017-08-12 09:42 | HHI.PR ---
Subjective Remarks nad. pleasant no complaints Objective Vitals heart reg lung cta abd s/nt ext no pitting neuro. moving left arm/leg following commands. Vital Signs Date Time Temp Pulse Resp B/P (MAP) Pulse Ox O2 Delivery O2 Flow Rate FiO2 08/12/17 06:00 94 08/12/17 04:00 98.0 95 24 134/63 (86) 100 08/12/17 04:00 95 08/12/17 02:00 98 08/12/17 00:00 95 08/12/17 00:00 98.0 95 24 134/63 (86) 100 08/11/17 22:00 96 08/11/17 20:00 100 08/11/17 20:00 98.6 99 23 125/60 (81) 100 08/11/17 18:00 99 08/11/17 16:00 100 08/11/17 16:00 98.7 100 16 132/61 (84) 100 08/11/17 14:00 94 08/11/17 12:00 98.1 92 14 140/65 (90) 100 08/11/17 12:00 92 08/11/17 10:00 94 Result Diagram: 08/11/17 1057 08/12/17 0420 Imaging Last 72 hours Impressions Chest X-Ray 08/07/17 1751 Signed Impressions: Service Date/Time: Monday, August 07, 2017 20:21 - CONCLUSION: No acute disease. Sg Abraham MD Hip and Pelvis X-Ray 08/07/17 0000 Signed Impressions: Service Date/Time: Monday, August 07, 2017 20:21 - CONCLUSION: No acute abnormality is seen. Sg Abraham MD Head CT 08/07/17 0000 Signed Impressions: Service Date/Time: Monday, August 07, 2017 20:43 - CONCLUSION: 1. No intracranial abnormality is seen. 2. Focal right sphenoid sinus disease. Sg Abraham MD Abdomen/Pelvis CT 08/07/17 0000 Signed Impressions: Service Date/Time: Monday, August 07, 2017 20:46 - CONCLUSION: 1. Left inguinal hernia containing a small segment of the proximal sigmoid colon. Significant bowel dilatation is not seen. 2. Fracture deformity at the superior aspect of T11. This appears likely either acute or subacute. There do appear to be more chronic changes at the L3 and L4 levels as described above. 3. Moderate hiatal hernia with at least a portion of this being a paraesophageal hiatal hernia. 4. Induration seen in the perinephric space especially on the right. Some of this does abut the distended gallbladder. This can be correlated with the patient's symptoms. 5. Calcified granulomas in the spleen. Sg Abraham MD A/P Problem List: (1) Delirium ICD Codes: R41.0 - Disorientation, unspecified Status: Acute Plan: 1. acute delirium 2. 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 Mild to moderate chronic white matter ischemic changes. No acute hemorrhage. 3. severe right carotid artery stenosis 4. rylan. dehydration. improving 5. hypotension resolved. volume related 6. sinus tachycardia resolved 7. mod/severe lumbar stenosis with acute t11 fx and intractable pain 8. Leukocytosis 9. anemia 10. hypokalemia ICU monitoring. neuro checks swallow eval noted: and resume diet as tolerated cardene gtt prn for sbp over 170 IVF....lower systems specialist d/c abx. cx neg so far. monitor for fever recurrence her long acting morphine held and prn iv ordered. will hold flexeril scd. sq heparin. nsg consulted for fx. vascular consulted for Carotid dz replace kcl pt/ot/st medically ok for 5N when ok with neuro (2) Carotid stenosis ICD Codes: I65.29 - Occlusion and stenosis of unspecified carotid artery Status: Acute (3) Acute CVA (cerebrovascular accident) ICD Codes: I63.9 - Cerebral infarction, unspecified Status: Acute (4) Hypotension ICD Codes: I95.9 - Hypotension, unspecified Status: Acute (5) RYLAN (acute kidney injury) ICD Codes: N17.9 - Acute kidney failure, unspecified Status: Acute (6) T11 vertebral fracture ICD Codes: S22.089A - Unspecified fracture of T11-T12 vertebra, initial encounter for closed fracture Status: Acute (7) Intractable low back pain ICD Codes: M54.5 - Low back pain Status: Acute (8) Lumbar spinal stenosis ICD Codes: M48.061 - Spinal stenosis, lumbar region without neurogenic claudication Status: Chronic (9) Anemia ICD Codes: D64.9 - Anemia, unspecified Status: Chronic Plan: Baseline hemoglobin generally around 10.5. 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 She notes that she has used naproxen at home and given her presenting mentation she may have been taking more than she is reporting. We'll follow hemoglobin closely. Vitals stable at this point. Repeat hemoglobin last night stable. (10) Acute kidney injury superimposed on chronic kidney disease ICD Codes: N17.9 - Acute kidney failure, unspecified; N18.9 - Chronic kidney disease, unspecified Status: Acute (11) Sinus tachycardia ICD Codes: R00.0 - Tachycardia, unspecified (12) Hypertension ICD Codes: I10 - Essential (primary) hypertension Status: Chronic Problem Qualifiers (1) Carotid stenosis: Qualified Codes: I65.21 - Occlusion and stenosis of right carotid artery (2) Anemia: (3) Hypertension: Qualified Codes: I10 - Essential (primary) hypertension Sánchez Jewell MD Aug 12, 2017 09:42
--- NOTE | 2017-08-12 13:12 | HHI.PR ---
Review/Management Diagnosis right hemisphere stroke improved after iv TPA right carotid stenosis T11 compression Fx Diagnosis/Plan: (1) Acute ischemic right MCA stroke ICD Codes: I63.511 - Cerebral infarction due to unspecified occlusion or stenosis of right middle cerebral artery Status: Acute Plan: s/p iv tpa mri brain with rt mca strokes 2/2 rt carotid dz follow tele to r/o afib as well no ich recs neuro stable continue aspirin ok for 5th floor with tele (2) Carotid stenosis ICD Codes: I65.29 - Occlusion and stenosis of unspecified carotid artery Status: Acute (3) RYLAN (acute kidney injury) ICD Codes: N17.9 - Acute kidney failure, unspecified Status: Acute (4) Lumbar spinal stenosis ICD Codes: M48.061 - Spinal stenosis, lumbar region without neurogenic claudication Status: Chronic Subjective Subjective Comments No acute events reported No headache No chest pain No dyspnea Active Medications Current Medications Medications (Trade) Dose Ordered Sig/Nader Route Start Time Stop Time Status Last Admin (NS Flush) 2 ml UNSCH PRN IV FLUSH 08/07/17 18:00 (Morphine Inj) 2 mg Q3H PRN IV PUSH 08/07/17 21:30 08/12/17 00:24 (Oscal-D 250-125) 500 mg DAILY PO 08/08/17 09:00 08/12/17 08:43 (Ferrous Sulfate) 325 mg DAILY PO 08/08/17 09:00 08/12/17 08:43 (Pravachol) 40 mg DAILY PO 08/08/17 09:00 08/12/17 08:43 (Protonix) 40 mg DAILY PO 08/07/17 21:30 08/12/17 08:43 (Ativan Inj) 0.5 mg Q4H PRN IV PUSH 08/09/17 11:30 08/10/17 16:46 Nicardipine HCl 25 mg/Sodium Chloride 250 ml @ 50 mls/hr TITRATE PRN IV 08/09/17 14:15 (Ecotrin Ec) 325 mg DAILY PO 08/10/17 16:45 08/12/17 08:43 (Heparin Inj) 5,000 units BID SQ 08/11/17 21:00 08/12/17 08:43 Potassium Chloride/Dextrose/ Sod Cl 1,000 ml @ 70 mls/hr [id number] IV 08/12/17 09:45 08/12/17 10:30 Allergies Allergies Coded Allergies No Known Allergies (Verified Allergy, Unknown, 08/07/17) Exam I&O / VS 08/12/17 08/12/17 08/13/17 15:00 23:00 07:00 Intake Total 900 ml Balance 900 ml IV Total 900 ml Vital Signs Date Time Temp Pulse Resp B/P (MAP) Pulse Ox O2 Delivery O2 Flow Rate FiO2 08/12/17 12:00 98 08/12/17 12:00 98.2 99 14 136/62 (86) 100 08/12/17 10:11 99 Nasal Cannula 2.00 08/12/17 10:00 99 08/12/17 08:00 98.2 102 18 138/63 (88) 100 08/12/17 08:00 102 08/12/17 06:00 94 08/12/17 04:00 98.0 95 24 134/63 (86) 100 08/12/17 04:00 95 08/12/17 02:00 98 08/12/17 00:00 95 08/12/17 00:00 98.0 95 24 134/63 (86) 100 08/11/17 22:00 96 08/11/17 20:00 100 08/11/17 20:00 98.6 99 23 125/60 (81) 100 08/11/17 18:00 99 08/11/17 16:00 100 08/11/17 16:00 98.7 100 16 132/61 (84) 100 08/11/17 14:00 94 Psychiatric: Cooperative Exam Comments drowsy, easily alerts, ox 2, not to date, follows, os-3mm sluggish surgical cataract extraction change, od 3mm-2.5, reduced left nlf, left hemiparesis 3-4/5 Objective Micro and Labs Laboratory Tests Test 08/12/17 04:20 Blood Urea Nitrogen 9 Creatinine 0.72 Random Glucose 103 Calcium Level 8.2 Sodium Level 146 Potassium Level 3.5 Chloride Level 109 Carbon Dioxide Level 29.8 Anion Gap 7 Estimat Glomerular Filtration Rate 77 Date/Time Source Procedure Growth Status 08/10/17 20:15 Blood Peripheral Aerobic Blood Culture - Preliminary NO GROWTH IN 2 DAYS Resulted 08/10/17 20:15 Blood Peripheral Anaerobic Blood Culture - Preliminary NO GROWTH IN 2 DAYS Resulted Problem Qualifiers (1) Carotid stenosis: Qualified Codes: I65.21 - Occlusion and stenosis of right carotid artery Theo Babin MD Aug 12, 2017 13:12
[2017-08-12] MEDS ORDERED: POTASSIUM CHLORIDE 20 MEQ CONTROLLED RELEASE TAB PO ONE (17:00)
--- NOTE | 2017-08-12 17:05 | HHI.NSPN ---
History Chief Complaint: no complaints Interval History 87-year-old female status post fall with secondary T11 compression fracture. Acute right CVA with secondary left hemiparesis. Status post TPA 08/12/17: Remains awake and alert. Conversant and appropriate. No complaints of significant pain while lying in bed. Exam Results Vital Signs Date Time Temp Pulse Resp B/P (MAP) Pulse Ox O2 Delivery O2 Flow Rate FiO2 08/12/17 16:00 98.0 106 20 134/102 (113) 97 08/12/17 10:11 Nasal Cannula 2.00 Intake and Output 08/12/17 08/12/17 08/13/17 08:00 16:00 00:00 Intake Total 940 ml 900 ml Output Total 400 ml Balance 540 ml 900 ml Physical Examination Ms. Lau is awake and relatively alert, oriented to person. Speech is slow with mild dysarthria. Following commands. Cranial nerve examination: pupils 3 mm equal, round, and reactive to light. Extra-ocular movements are intact. Facial motor appear symmetrical. Tongue protrude midline. Left gaze deficits. Possible left hemianopsia Neck is soft and supple. Motor: moving all four extremities with mild left hemiparesis and diminished coordination in the left upper and lower extremity. Sensory examination reports intact to light touch x 4. Medical Decision Making Impression and Plan Impression: 1. Stable neurologic exam status post right CVA, T11 compression fracture Plan: Gilma mobilized out of bed with TLSO brace. Kyphoplasty deferred at this point due to CVA, clinical status. Gradually improving with conservative treatment. Stable for transfer to regular floor from neurosurgery standpoint Donald Cotton MD Aug 12, 2017 17:05
[2017-08-12] MEDS: MAGNESIUM SULFATE 1 GM PREMIX 100 ML IV SCH ×3 (18:04→19:00)
[2017-08-13] VITALS (7 sets, daily range): BP systolic 126–164; BP diastolic 65–72; PULSE 101–112; RESP 16–20; TEMP 97.6–98.8; O2SAT 94–98
[2017-08-13] MEDS: D5-1/2 NS + KCL 20 MEQ INJ 1,000 ML IV SCH ×3 (00:03→17:11)
[2017-08-13] MEDS: PRAVASTATIN SOD 40 MG TAB PO SCH (08:45)
[2017-08-13] MEDS: CALCIUM/VITAMIN D 250 MG/125 U TAB PO SCH (08:45)
[2017-08-13] MEDS: ASPIRIN EC 325 MG TABEC PO SCH (08:45)
[2017-08-13] MEDS: FERROUS SULFATE 325 MG (65 MG ELEMENTAL IRON) TAB PO SCH (08:45)
[2017-08-13] MEDS: HEPARIN SODIUM - SQ 10,000 UNITS/ML VIAL SQ SCH ×2 (08:45→21:01)
[2017-08-13] MEDS: PANTOPRAZOLE SOD 40 MG DELAYED RELEASE TAB PO SCH (08:45)
[2017-08-13 09:55] LABS: AUTOMATED NEUTROPHIL # 5.3 TH/MM3 (1.8-7.7); BASOPHIL # 0.1 TH/MM3 (0-0.2); BASOPHIL % 0.6 % (0.0-2.0); EOSINOPHIL # 0.1 TH/MM3 (0-0.4); EOSINOPHIL % 0.7 % (0.0-4.0); LYMPH % 13.9 % (9.0-44.0); LYMPHOCYTE # 1.3 TH/MM3 (1.0-4.8); MEAN CELL VOLUME 92.8 FL (80.0-100.0); MEAN CORPUSCULAR HEMOGLOBIN 30.8 PG (27.0-34.0); MEAN CORPUSCULAR HGB CONC 33.2 % (32.0-36.0); MONO % 28.1 % (0.0-8.0); NEUT % 56.7 % (16.0-70.0); PLATELET COUNT 226 TH/MM3 (150-450); RED BLOOD COUNT 2.58 MIL/MM3 (4.00-5.30); RED CELL DISTRIBUTION WIDTH 13.6 % (11.6-17.2); WHITE BLOOD COUNT 9.4 TH/MM3 (4.0-11.0)
[2017-08-13 10:06] LABS: HEMO FLAGS AUTO DIFF
[2017-08-13 10:25] LABS: BICARBONATE 27.3 MEQ/L (21.0-32.0); MAGNESIUM 1.4 MG/DL (1.5-2.5); POTASSIUM 3.8 MEQ/L (3.5-5.1)
[2017-08-13 11:29] LABS: SCAN/DIFF AUTO DIFF CONFIRMED
--- NOTE | 2017-08-13 13:51 | HHI.NSPN ---
(Starr Harirs) Note Status Status: Progress Note (Starr Harris) Interval History Interval History This is a 87-year-old female with history of chronic low back pain and hypertension, who presents via EMS for evaluation of back pain. She had also mild altered mental status and disorientation. Patient has apparently received 2 doses of morphine extended release due to intractable back pain. She was in her pain management doctor's office last week and complained of extreme pain in lower back. From there she was transported to the ER where she received IV morphine with some relief. Apparently she has not been eating or drinking properly over the last few days due to pain and just "sitting on the couch". 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 ER evaluation noted she was hypotensive with low systolic pressures in the 80s which have responded to IV fluid bolus. She was anemic with I hemoglobin of 8, white blood cell count 14,000, with some renal insufficiency with a BUNs 79 and creatinine of 2.9. MRI of the lumbar spine show lumbar spinal stenosis. In addition she had some acute T11 fracture without retropulsion. A neurosurgical consultation was requested When I went to assess her she was very lethargic. She had a left facial droop and was unable to move her left upper and her left lower extremity. This is an acute change since she has been assisted with the the past hour and found to be functional, without focal deficits. Stroke alert was called 08/10: s/p TPA. doing much better today, more awake and alert, moving left side more. 08/13: milldy confused. reports no pain when laying in bed, increases with movement. stroke w/u with right carotid artery stenosis. (Starr Harris) Labs, Micro, & Vital Signs Results Date Time Temp Pulse Resp B/P (MAP) Pulse Ox O2 Delivery O2 Flow Rate FiO2 08/13/17 12:38 98.8 106 16 161/69 (99) 97 08/13/17 10:07 101 08/13/17 08:57 97.6 101 16 151/70 (97) 98 08/13/17 04:00 98.2 103 20 142/67 (92) 98 08/13/17 01:35 98.6 102 16 132/69 (90) 98 08/12/17 21:45 97.8 101 20 127/81 (96) 97 08/12/17 16:00 98.0 106 20 134/102 (113) 97 08/12/17 14:00 105 Constitutional Vital Signs Date Time Temp Pulse Resp B/P (MAP) Pulse Ox O2 Delivery O2 Flow Rate FiO2 08/13/17 12:38 98.8 106 16 161/69 (99) 97 08/13/17 10:07 101 08/13/17 08:57 97.6 101 16 151/70 (97) 98 08/13/17 04:00 98.2 103 20 142/67 (92) 98 08/13/17 01:35 98.6 102 16 132/69 (90) 98 08/12/17 21:45 97.8 101 20 127/81 (96) 97 08/12/17 16:00 98.0 106 20 134/102 (113) 97 08/12/17 14:00 105 (Starr Harris) Review of Systems Musculoskeletal: COMPLAINS OF: Back pain (stable) (Starr Harris) Physical Exam Ms. Lau is awake, follows few simple commands. Confused oriented to self only. Cranial nerve examination: pupils 3 mm equal, round, and reactive to light. Extra-ocular movements are intact. Facial motor appear symmetrical. Tongue protrude midline. Neck is soft and supple. Motor: moving all four extremities with left hemiparesis Sensory examination reports intact to light touch DTR's 1+ overall. Neutral response to plantar stimulation (Starr Harris) Ms. Lau is awake, follows few simple commands. Confused oriented to self only. Cranial nerve examination: pupils 3 mm equal, round, and reactive to light. Extra-ocular movements are intact. Facial motor appear symmetrical. Tongue protrude midline. Neck is soft and supple. Motor: moving all four extremities with left hemiparesis Sensory examination reports intact to light touch DTR's 1+ overall. Neutral response to plantar stimulation (Jose Seay MD) Medications Current Medications Current Medications Medications (Trade) Dose Ordered Sig/Nader Route PRN Reason Start Time Stop Time Status Last Admin Dose Admin IV Flush (NS Flush) 2 ml UNSCH PRN IV FLUSH FLUSH AFTER USING IV ACCESS 08/07/17 18:00 Morphine Sulfate (Morphine Inj) 2 mg Q3H PRN IV PUSH pain level 3-10 08/07/17 21:30 08/12/17 00:24 Calcium/Vitamin D (Oscal-D 250-125) 500 mg DAILY PO 08/08/17 09:00 08/13/17 08:45 Ferrous Sulfate (Ferrous Sulfate) 325 mg DAILY PO 08/08/17 09:00 08/13/17 08:45 Pravastatin Sodium (Pravachol) 40 mg DAILY PO 08/08/17 09:00 08/13/17 08:45 Pantoprazole Sodium (Protonix) 40 mg DAILY PO 08/07/17 21:30 08/13/17 08:45 Lorazepam (Ativan Inj) 0.5 mg Q4H PRN IV PUSH agitation/anxiety 08/09/17 11:30 08/10/17 16:46 Nicardipine HCl 25 mg/Sodium Chloride 250 ml @ 50 mls/hr TITRATE PRN IV Blood pressure management 08/09/17 14:15 Aspirin (Ecotrin Ec) 325 mg DAILY PO 08/10/17 16:45 08/13/17 08:45 Heparin Sodium (Porcine) (Heparin Inj) 5,000 units BID SQ 08/11/17 21:00 08/13/17 08:45 Potassium Chloride/Dextrose/ Sod Cl 1,000 ml @ 70 mls/hr [id number] IV 08/12/17 09:45 08/13/17 04:02 (Starr Hraris) Medical Decision Making MDM Remarks 87 y/o female s/p fall 1. acute T11 compression fracture 2. acute right CVA with left hemiparesis 08/11, s/p TPA, left hemiparesis improving (Starr Harris) Plan Plan Remarks cont nonsurgical mgt for now TLSO, ok OOB with brace, Neurology following for management of stroke PT, OT, ST dw family in room (Starr Harris) Attending Statement As above Consulted vascular surgeon T11 fracture.Continue nonoperative treatment She has significant lumbar spinal stenosis. I recommend to continue nonoperative treatment Altered mental status Likely multifactorial associated with dehydration, pain medication and azotemia. Hypertension. Hold medication at this point. Anemia Baseline hemoglobin generally around 10.5. 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 Acute kidney injury superimposed on chronic kidney disease. Chronic kidney disease, unspecified Acute. Careful IV hydration. monitor closely urine output, BUN and creatinine Pulmonary. Continue aggressive pulmonary toilette, nasotracheal suction, and breathing treatments with nebulizers. Daily PT and OT Nutrition. Tolerating Oral diet Endocrine. Continue to Monitor serial Acu checks and SSI as needed in detail ID continue to monitor for signs of infection Continue Protonix for stress ulcer prophylaxis Continue Oscar hose and SCD's for DVT prophylaxis (Jose Seay MD) Starr Harris Aug 13, 2017 13:51 Jose Seay MD Aug 15, 2017 12:58
--- NOTE | 2017-08-13 14:49 | HHI.PR ---
Subjective Remarks No new complaints Objective Vitals Vital Signs Date Time Temp Pulse Resp B/P (MAP) Pulse Ox O2 Delivery O2 Flow Rate FiO2 08/13/17 12:38 98.8 106 16 161/69 (99) 97 08/13/17 10:07 101 08/13/17 08:57 97.6 101 16 151/70 (97) 98 08/13/17 04:00 98.2 103 20 142/67 (92) 98 08/13/17 01:35 98.6 102 16 132/69 (90) 98 08/12/17 21:45 97.8 101 20 127/81 (96) 97 08/12/17 16:00 98.0 106 20 134/102 (113) 97 08/13/17 08/13/17 08/14/17 15:00 23:00 07:00 Intake Total 240 ml Output Total 1500 ml Balance -1260 ml Intake Oral 240 ml Output Urine Total 1500 ml # Bowel Movements 0 Result Diagram: 08/13/17 0916 08/13/17 0916 Other Results Laboratory Tests Test 08/12/17 04:20 08/13/17 09:16 Blood Urea Nitrogen 9 MG/DL 6 MG/DL Creatinine 0.72 MG/DL 0.64 MG/DL Random Glucose 103 MG/DL 113 MG/DL Calcium Level 8.2 MG/DL 8.3 MG/DL Sodium Level 146 MEQ/L 137 MEQ/L Potassium Level 3.5 MEQ/L 3.8 MEQ/L Chloride Level 109 MEQ/L 102 MEQ/L Carbon Dioxide Level 29.8 MEQ/L 27.3 MEQ/L Anion Gap 7 MEQ/L 8 MEQ/L Estimat Glomerular Filtration Rate 77 ML/MIN 88 ML/MIN Magnesium Level 0.8 MG/DL 1.4 MG/DL White Blood Count 9.4 TH/MM3 Red Blood Count 2.58 MIL/MM3 Hemoglobin 8.0 GM/DL Hematocrit 24.0 % Mean Corpuscular Volume 92.8 FL Mean Corpuscular Hemoglobin 30.8 PG Mean Corpuscular Hemoglobin Concent 33.2 % Red Cell Distribution Width 13.6 % Platelet Count 226 TH/MM3 Mean Platelet Volume 8.5 FL Neutrophils (%) (Auto) 56.7 % Lymphocytes (%) (Auto) 13.9 % Monocytes (%) (Auto) 28.1 % Eosinophils (%) (Auto) 0.7 % Basophils (%) (Auto) 0.6 % Neutrophils # (Auto) 5.3 TH/MM3 Lymphocytes # (Auto) 1.3 TH/MM3 Monocytes # (Auto) 2.6 TH/MM3 Eosinophils # (Auto) 0.1 TH/MM3 Basophils # (Auto) 0.1 TH/MM3 CBC Comment AUTO DIFF Differential Comment AUTO DIFF CONFIRMED Imaging Last Impressions Head CT 08/10/17 1400 Signed Impressions: Service Date/Time: Thursday, August 10, 2017 14:04 - CONCLUSION: 1. Stable senescent changes without evidence for intercurrent hemorrhage status post TPA administration. Jose Chavez MD Brain MRI 08/10/17 0000 Signed Impressions: Service Date/Time: Thursday, August 10, 2017 17:31 - CONCLUSION: Acute small punctate infarcts in the posterior right frontal lobe and larger area of infarction in the right parieto-occipital region measuring up to about 3 cm in diameter without hemorrhage, mass effect or shift. Mild to moderate chronic white matter ischemic changes. No acute hemorrhage. Kimo Ashby MD Neck CTA 08/09/17 0000 Signed Impressions: Service Date/Time: August 13:03 - CONCLUSION: High-grade right carotid bifurcation stenosis. No significant stenotic narrowing on the left. Sg Dalton MD Head CTA 08/09/17 0000 Signed Impressions: Service Date/Time: August 13:01 - CONCLUSION: Negative Sg Dalton MD Carotid Artery Ultrasound 08/09/17 0000 Signed Impressions: Service Date/Time: August 14:54 - CONCLUSION: 1. High grade stenosis in the right internal carotid artery of greater than 70%%. 2. Mild plaque in the left carotid bulb with no stenosis. Song Beard MD Lumbar Spine MRI 08/08/17 0000 Signed Impressions: Service Date/Time: Tuesday, August 08, 2017 12:12 - CONCLUSION: 1. Acute compression fracture T11. The patient may be a candidate for kyphoplasty if clinically indicated 2. Moderate to severe stenosis at L3-L4 with moderate stenosis at L2-L3 and L4-L5 Jonathan Franklin MD Chest X-Ray 08/07/17 9391 Signed Impressions: Service Date/Time: Monday, August 07, 2017 20:21 - CONCLUSION: No acute disease. Sg Abraham MD Hip and Pelvis X-Ray 08/07/17 0000 Signed Impressions: Service Date/Time: Monday, August 07, 2017 20:21 - CONCLUSION: No acute abnormality is seen. Sg Abraham MD Abdomen/Pelvis CT 08/07/17 0000 Signed Impressions: Service Date/Time: Monday, August 07, 2017 20:46 - CONCLUSION: 1. Left inguinal hernia containing a small segment of the proximal sigmoid colon. Significant bowel dilatation is not seen. 2. Fracture deformity at the superior aspect of T11. This appears likely either acute or subacute. There do appear to be more chronic changes at the L3 and L4 levels as described above. 3. Moderate hiatal hernia with at least a portion of this being a paraesophageal hiatal hernia. 4. Induration seen in the perinephric space especially on the right. Some of this does abut the distended gallbladder. This can be correlated with the patient's symptoms. 5. Calcified granulomas in the spleen. Sg Abraham MD Last 72 hours Impressions Chest X-Ray 08/07/17 175 Signed Impressions: Service Date/Time: Monday, August 07, 2017 20:21 - CONCLUSION: No acute disease. Sg Abraham MD Hip and Pelvis X-Ray 08/07/17 Signed Impressions: Service Date/Time: Monday, August 07, 2017 20:21 - CONCLUSION: No acute abnormality is seen. Sg Abraham MD Head CT 08/07/17 Signed Impressions: Service Date/Time: Monday, August 07, 2017 20:43 - CONCLUSION: 1. No intracranial abnormality is seen. 2. Focal right sphenoid sinus disease. Sg Abraham MD Abdomen/Pelvis CT 08/07/17 Signed Impressions: Service Date/Time: Monday, August 07, 2017 20:46 - CONCLUSION: 1. Left inguinal hernia containing a small segment of the proximal sigmoid colon. Significant bowel dilatation is not seen. 2. Fracture deformity at the superior aspect of T11. This appears likely either acute or subacute. There do appear to be more chronic changes at the L3 and L4 levels as described above. 3. Moderate hiatal hernia with at least a portion of this being a paraesophageal hiatal hernia. 4. Induration seen in the perinephric space especially on the right. Some of this does abut the distended gallbladder. This can be correlated with the patient's symptoms. 5. Calcified granulomas in the spleen. Sg Abraham MD Objective Remarks General: NAD, Awake and alert Chest: CTA Cardiac: Regular Abd: +BS, soft ND/NT Ext: No edema A/P Problem List: (1) Delirium ICD Codes: R41.0 - Disorientation, unspecified Status: Acute Plan: 1. Acute delirium - Her long acting morphine held and prn iv ordered. - Will hold Flexeril 2. Acute cva with left hemiparesis - s/p tpa on 08/09 - Carotid US (08/09) --> High grade stenosis in the right internal carotid artery of greater than 70%. Mild plaque in the left carotid bulb with no stenosis. - Neck CTA (08/09) --> High-grade right carotid bifurcation stenosis. No significant stenotic narrowing on the left. - MRI brain (08/10) --> Acute small punctate infarcts in the posterior right frontal lobe and larger area of infarction in the right parieto-occipital region measuring up to about 3 cm in diameter without hemorrhage, mass effect or shift. Mild to moderate chronic white matter ischemic changes. No acute hemorrhage. - Swallow eval noted: and resume diet as tolerated - PT/OT/ST - Telemetry 3. Severe right carotid artery stenosis - vascular consulted for Carotid dz - They are recommending medical management and continued monitoring. ?CEA 4. RYLAN secondary to dehydration, improving 5. Hypotension, resolved. Likely volume related - BP elevating, pt had been on Amlodipine 5 Mg PO DAILY and Atenolol- Chlorthalidone 50-25 Mg Tab 0.5 Tab PO DAILY, prior to admission for BP control - Will discuss with Neurology when BP meds may be resumed in light of recent CVA 6. Sinus tachycardia, resolved 7. Mod/severe lumbar stenosis with acute T11 fx and intractable pain. Neurosurgery following. - Nonsurgical mgt for now - TLSO, OOB with brace, 8. Leukocytosis 9. Anemia 10. hypokalemia - Replace (2) Carotid stenosis ICD Codes: I65.29 - Occlusion and stenosis of unspecified carotid artery Status: Acute (3) Acute CVA (cerebrovascular accident) ICD Codes: I63.9 - Cerebral infarction, unspecified Status: Acute (4) Hypotension ICD Codes: I95.9 - Hypotension, unspecified Status: Acute (5) RYLAN (acute kidney injury) ICD Codes: N17.9 - Acute kidney failure, unspecified Status: Acute (6) T11 vertebral fracture ICD Codes: S22.089A - Unspecified fracture of T11-T12 vertebra, initial encounter for closed fracture Status: Acute (7) Intractable low back pain ICD Codes: M54.5 - Low back pain Status: Acute (8) Lumbar spinal stenosis ICD Codes: M48.061 - Spinal stenosis, lumbar region without neurogenic claudication Status: Chronic (9) Anemia ICD Codes: D64.9 - Anemia, unspecified Status: Chronic Plan: Baseline hemoglobin generally around 10.5. 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 She notes that she has used naproxen at home and given her presenting mentation she may have been taking more than she is reporting. We'll follow hemoglobin closely. Vitals stable at this point. Repeat hemoglobin last night stable. (10) Acute kidney injury superimposed on chronic kidney disease ICD Codes: N17.9 - Acute kidney failure, unspecified; N18.9 - Chronic kidney disease, unspecified Status: Acute (11) Sinus tachycardia ICD Codes: R00.0 - Tachycardia, unspecified (12) Hypertension ICD Codes: I10 - Essential (primary) hypertension Status: Chronic Assessment and Plan Patient examined. Assessment and plan formulated with Leora Dc PA-C. I agree with the above. Problem Qualifiers (1) Carotid stenosis: Qualified Codes: I65.21 - Occlusion and stenosis of right carotid artery (2) Anemia: (3) Hypertension: Qualified Codes: I10 - Essential (primary) hypertension Leora Dc Aug 13, 2017 14:49 Jesse Sears DO Aug 18, 2017 21:52
[2017-08-13] MEDS ORDERED: ENALAPRILAT 1.25 MG/ML VIAL IV PRN (15:30)
[2017-08-13] MEDS ORDERED: cloNIDine HCL 0.2 MG TAB PO PRN (15:30)
--- NOTE | 2017-08-13 18:40 | HHI.PR ---
Review/Management Diagnosis right hemisphere stroke improved after iv TPA right carotid stenosis T11 compression Fx Plan continue with ASA I agree with Dr Harris's recommendation regarding timing or right carotid endarterectomy Diagnosis/Plan: (1) Acute ischemic right MCA stroke ICD Codes: I63.511 - Cerebral infarction due to unspecified occlusion or stenosis of right middle cerebral artery Status: Acute Plan: s/p iv tpa mri brain with rt mca strokes 2/2 rt carotid dz follow tele to r/o afib as well no ich recs neuro stable continue aspirin ok for 5th floor with tele (2) Carotid stenosis ICD Codes: I65.29 - Occlusion and stenosis of unspecified carotid artery Status: Acute (3) RYLAN (acute kidney injury) ICD Codes: N17.9 - Acute kidney failure, unspecified Status: Acute (4) Lumbar spinal stenosis ICD Codes: M48.061 - Spinal stenosis, lumbar region without neurogenic claudication Status: Chronic Subjective Subjective Comments No acute events reported Pt feels her left sided strength is improving Active Medications Current Medications Medications (Trade) Dose Ordered Sig/Nader Route Start Time Stop Time Status Last Admin (NS Flush) 2 ml UNSCH PRN IV FLUSH 08/07/17 18:00 (Morphine Inj) 2 mg Q3H PRN IV PUSH 08/07/17 21:30 08/12/17 00:24 (Oscal-D 250-125) 500 mg DAILY PO 08/08/17 09:00 08/13/17 08:45 (Ferrous Sulfate) 325 mg DAILY PO 08/08/17 09:00 08/13/17 08:45 (Pravachol) 40 mg DAILY PO 08/08/17 09:00 08/13/17 08:45 (Protonix) 40 mg DAILY PO 08/07/17 21:30 08/13/17 08:45 (Ativan Inj) 0.5 mg Q4H PRN IV PUSH 08/09/17 11:30 08/10/17 16:46 Nicardipine HCl 25 mg/Sodium Chloride 250 ml @ 50 mls/hr TITRATE PRN IV 08/09/17 14:15 (Ecotrin Ec) 325 mg DAILY PO 08/10/17 16:45 08/13/17 08:45 (Heparin Inj) 5,000 units BID SQ 08/11/17 21:00 08/13/17 08:45 Potassium Chloride/Dextrose/ Sod Cl 1,000 ml @ 70 mls/hr [id number] IV 08/12/17 09:45 08/13/17 17:11 (Catapres) 0.2 mg Q6H PRN PO 08/13/17 15:30 (Vasotec Inj) 1.25 mg Q6H PRN IV 08/13/17 15:30 Allergies Allergies Coded Allergies No Known Allergies (Verified Allergy, Unknown, 08/07/17) Exam I&O / VS 08/13/17 08/13/17 08/14/17 15:00 23:00 07:00 Intake Total 240 ml 1558 ml Output Total 1500 ml 350 ml Balance -1260 ml 1208 ml Intake Oral 240 ml IV Total 1558 ml Output Urine Total 1500 ml 350 ml # Bowel Movements 0 1 Vital Signs Date Time Temp Pulse Resp B/P (MAP) Pulse Ox O2 Delivery O2 Flow Rate FiO2 08/13/17 16:23 98.2 105 16 126/65 (85) 94 08/13/17 12:38 98.8 106 16 161/69 (99) 97 08/13/17 10:07 101 08/13/17 08:57 97.6 101 16 151/70 (97) 98 08/13/17 04:00 98.2 103 20 142/67 (92) 98 08/13/17 01:35 98.6 102 16 132/69 (90) 98 08/12/17 21:45 97.8 101 20 127/81 (96) 97 Psychiatric: Cooperative Exam Comments alert, speech dysarthric CN intact MOTOR 5/5 RUE, 4+/5 LUE Objective Micro and Labs Laboratory Tests Test 08/13/17 09:16 White Blood Count 9.4 Red Blood Count 2.58 Hemoglobin 8.0 Hematocrit 24.0 Mean Corpuscular Volume 92.8 Mean Corpuscular Hemoglobin 30.8 Mean Corpuscular Hemoglobin Concent 33.2 Red Cell Distribution Width 13.6 Platelet Count 226 Mean Platelet Volume 8.5 Neutrophils (%) (Auto) 56.7 Lymphocytes (%) (Auto) 13.9 Monocytes (%) (Auto) 28.1 Eosinophils (%) (Auto) 0.7 Basophils (%) (Auto) 0.6 Neutrophils # (Auto) 5.3 Lymphocytes # (Auto) 1.3 Monocytes # (Auto) 2.6 Eosinophils # (Auto) 0.1 Basophils # (Auto) 0.1 CBC Comment AUTO DIFF Differential Comment AUTO DIFF CONFIRMED Blood Urea Nitrogen 6 Creatinine 0.64 Random Glucose 113 Calcium Level 8.3 Magnesium Level 1.4 Sodium Level 137 Potassium Level 3.8 Chloride Level 102 Carbon Dioxide Level 27.3 Anion Gap 8 Estimat Glomerular Filtration Rate 88 Date/Time Source Procedure Growth Status 08/10/17 20:15 Blood Peripheral Aerobic Blood Culture - Preliminary NO GROWTH IN 3 DAYS Resulted 08/10/17 20:15 Blood Peripheral Anaerobic Blood Culture - Preliminary NO GROWTH IN 3 DAYS Resulted Problem Qualifiers (1) Carotid stenosis: Qualified Codes: I65.21 - Occlusion and stenosis of right carotid artery David Arrieta PhD Aug 13, 2017 18:40
[2017-08-14] VITALS (7 sets, daily range): BP systolic 128–163; BP diastolic 60–72; PULSE 101–116; RESP 16–20; TEMP 97.3–98.4; O2SAT 95–98
[2017-08-14] MEDS: ASPIRIN EC 325 MG TABEC PO SCH (10:12)
[2017-08-14] MEDS: PRAVASTATIN SOD 40 MG TAB PO SCH (10:12)
[2017-08-14] MEDS: PANTOPRAZOLE SOD 40 MG DELAYED RELEASE TAB PO SCH (10:12)
[2017-08-14] MEDS: FERROUS SULFATE 325 MG (65 MG ELEMENTAL IRON) TAB PO SCH (10:12)
[2017-08-14] MEDS: CALCIUM/VITAMIN D 250 MG/125 U TAB PO SCH (10:13)
[2017-08-14] MEDS: HEPARIN SODIUM - SQ 10,000 UNITS/ML VIAL SQ SCH ×2 (10:13→22:18)
--- NOTE | 2017-08-14 12:06 | PD.VS.PN ---
Subjective Subjective/Hospital Course Pt s/p R hemispheric stroke, oriented now and near back to baseline, but still looks frail Objective Vitals/I&O Date Time Temp Pulse Resp B/P (MAP) Pulse Ox O2 Delivery O2 Flow Rate FiO2 08/14/17 10:01 101 08/14/17 08:36 97.3 103 18 159/72 (101) 98 08/14/17 04:00 97.8 105 18 132/66 (88) 97 08/14/17 00:00 98.4 107 18 163/71 (101) 97 08/13/17 20:00 112 08/13/17 20:00 98.0 107 18 164/72 (102) 94 08/13/17 16:23 98.2 105 16 126/65 (85) 94 08/13/17 12:38 98.8 106 16 161/69 (99) 97 08/14/17 08/14/17 08/14/17 07:00 15:00 23:00 Output Total 800 ml Balance -800 ml Physical Exam 5/5 R UE and near 5/5 L UE strength able to lift legs B Laboratory Date/Time Source Procedure Growth Status 08/10/17 20:15 Blood Peripheral Aerobic Blood Culture - Preliminary NO GROWTH IN 4 DAYS Resulted 08/10/17 20:15 Blood Peripheral Anaerobic Blood Culture - Preliminary NO GROWTH IN 4 DAYS Resulted Assessment and Plan Plan Acute R hemispheric CVA with improving neuro status after timely administration of TPA Looks frail but could have R CEA Would favor medical management and outpatient evaluation - arranged in 3-4 weeks Homer Harris MD FACS [employer] turbine engineer [facility] - [facility] at [facility] [phone] Homer Harris MD Aug 14, 2017 12:05
--- NOTE | 2017-08-14 14:42 | HHI.NSPN ---
(Starr Harris) Note Status Status: Progress Note (Starr Harris) Interval History Interval History This is a 87-year-old female with history of chronic low back pain and hypertension, who presents via EMS for evaluation of back pain. She had also mild altered mental status and disorientation. Patient has apparently received 2 doses of morphine extended release due to intractable back pain. She was in her pain management doctor's office last week and complained of extreme pain in lower back. From there she was transported to the ER where she received IV morphine with some relief. Apparently she has not been eating or drinking properly over the last few days due to pain and just "sitting on the couch". 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 ER evaluation noted she was hypotensive with low systolic pressures in the 80s which have responded to IV fluid bolus. She was anemic with I hemoglobin of 8, white blood cell count 14,000, with some renal insufficiency with a BUNs 79 and creatinine of 2.9. MRI of the lumbar spine show lumbar spinal stenosis. In addition she had some acute T11 fracture without retropulsion. A neurosurgical consultation was requested When I went to assess her she was very lethargic. She had a left facial droop and was unable to move her left upper and her left lower extremity. This is an acute change since she has been assisted with the the past hour and found to be functional, without focal deficits. Stroke alert was called 08/10: s/p TPA. doing much better today, more awake and alert, moving left side more. 08/13: milldy confused. reports no pain when laying in bed, increases with movement. stroke w/u with right carotid artery stenosis. 08/14: pain with increased movement, otherwise no pain currently. awaiting TLSO brace. (Starr Harris) Labs, Micro, & Vital Signs Results Date Time Temp Pulse Resp B/P (MAP) Pulse Ox O2 Delivery O2 Flow Rate FiO2 08/14/17 12:49 98.2 109 18 156/70 (98) 95 08/14/17 10:01 101 08/14/17 08:36 97.3 103 18 159/72 (101) 98 08/14/17 04:00 97.8 105 18 132/66 (88) 97 08/14/17 00:00 98.4 107 18 163/71 (101) 97 08/13/17 20:00 112 08/13/17 20:00 98.0 107 18 164/72 (102) 94 08/13/17 16:23 98.2 105 16 126/65 (85) 94 Constitutional Vital Signs Date Time Temp Pulse Resp B/P (MAP) Pulse Ox O2 Delivery O2 Flow Rate FiO2 08/14/17 12:49 98.2 109 18 156/70 (98) 95 08/14/17 10:01 101 08/14/17 08:36 97.3 103 18 159/72 (101) 98 08/14/17 04:00 97.8 105 18 132/66 (88) 97 08/14/17 00:00 98.4 107 18 163/71 (101) 97 08/13/17 20:00 112 08/13/17 20:00 98.0 107 18 164/72 (102) 94 08/13/17 16:23 98.2 105 16 126/65 (85) 94 (Starr Harris) Review of Systems Constitutional: DENIES: Fever Ears, nose, mouth, throat: COMPLAINS OF: Hearing loss Musculoskeletal: COMPLAINS OF: Back pain (only with movement) Psychiatric: COMPLAINS OF: Confusion (Starr Harris) Physical Exam Ms. Lau is awake, follows few simple commands. Confused oriented to self only. Cranial nerve examination: pupils 3 mm equal, round, and reactive to light. Extra-ocular movements are intact. Facial motor appear symmetrical. Tongue protrude midline. Neck is soft and supple. Motor: moving all four extremities with left hemiparesis Sensory examination reports intact to light touch DTR's 1+ overall. Neutral response to plantar stimulation (Starr Harris) Ms. Lau is awake, follows few simple commands. Confused oriented to self only. Cranial nerve examination: pupils 3 mm equal, round, and reactive to light. Extra-ocular movements are intact. Facial motor appear symmetrical. Tongue protrude midline. Neck is soft and supple. Motor: moving all four extremities with left hemiparesis Sensory examination reports intact to light touch DTR's 1+ overall. Neutral response to plantar stimulation (Jose Seay MD) Medications Current Medications Current Medications Medications (Trade) Dose Ordered Sig/Nader Route PRN Reason Start Time Stop Time Status Last Admin Dose Admin IV Flush (NS Flush) 2 ml UNSCH PRN IV FLUSH FLUSH AFTER USING IV ACCESS 08/07/17 18:00 Morphine Sulfate (Morphine Inj) 2 mg Q3H PRN IV PUSH pain level 3-10 08/07/17 21:30 08/12/17 00:24 Calcium/Vitamin D (Oscal-D 250-125) 500 mg DAILY PO 08/08/17 09:00 08/14/17 10:13 Ferrous Sulfate (Ferrous Sulfate) 325 mg DAILY PO 08/08/17 09:00 08/14/17 10:12 Pravastatin Sodium (Pravachol) 40 mg DAILY PO 08/08/17 09:00 08/14/17 10:12 Pantoprazole Sodium (Protonix) 40 mg DAILY PO 08/07/17 21:30 08/14/17 10:12 Lorazepam (Ativan Inj) 0.5 mg Q4H PRN IV PUSH agitation/anxiety 08/09/17 11:30 08/10/17 16:46 Nicardipine HCl 25 mg/Sodium Chloride 250 ml @ 50 mls/hr TITRATE PRN IV Blood pressure management 08/09/17 14:15 Aspirin (Ecotrin Ec) 325 mg DAILY PO 08/10/17 16:45 08/14/17 10:12 Heparin Sodium (Porcine) (Heparin Inj) 5,000 units BID SQ 08/11/17 21:00 08/14/17 10:13 Potassium Chloride/Dextrose/ Sod Cl 1,000 ml @ 70 mls/hr [id number] IV 08/12/17 09:45 08/13/17 17:11 Clonidine (Catapres) 0.2 mg Q6H PRN PO SBP above 180 08/13/17 15:30 Enalaprilat (Vasotec Inj) 1.25 mg Q6H PRN IV sbp above 180 08/13/17 15:30 (Starr Harris) Medical Decision Making MDM Remarks 87 y/o female s/p fall 1. acute T11 compression fracture, pain stable, improving. patient with increase risk with surgery due to recent CVA 2. 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 Seay dw family in room ok to dc to rehab from [facility] standpoint once she has TLSO, follow up in office 3-4 weeks with f/u xrays (Starr Harris) Starr Harris Aug 14, 2017 14:41 Jose Seay MD Aug 15, 2017 13:12
--- NOTE | 2017-08-14 16:11 | HHI.PR ---
Subjective Remarks No new complaints. Objective Vitals Vital Signs Date Time Temp Pulse Resp B/P (MAP) Pulse Ox O2 Delivery O2 Flow Rate FiO2 08/14/17 12:49 98.2 109 18 156/70 (98) 95 08/14/17 10:01 101 08/14/17 08:36 97.3 103 18 159/72 (101) 98 08/14/17 04:00 97.8 105 18 132/66 (88) 97 08/14/17 00:00 98.4 107 18 163/71 (101) 97 08/13/17 20:00 112 08/13/17 20:00 98.0 107 18 164/72 (102) 94 08/13/17 16:23 98.2 105 16 126/65 (85) 94 Result Diagram: 08/13/17 0916 08/13/17 0916 Imaging Last Impressions Head CT 08/10/17 1400 Signed Impressions: Service Date/Time: Thursday, August 10, 2017 14:04 - CONCLUSION: 1. Stable senescent changes without evidence for intercurrent hemorrhage status post TPA administration. Jose Chavez MD Brain MRI 08/10/17 0000 Signed Impressions: Service Date/Time: Thursday, August 10, 2017 17:31 - CONCLUSION: Acute small punctate infarcts in the posterior right frontal lobe and larger area of infarction in the right parieto-occipital region measuring up to about 3 cm in diameter without hemorrhage, mass effect or shift. Mild to moderate chronic white matter ischemic changes. No acute hemorrhage. Kimo Ashby MD Neck CTA 08/09/17 Signed Impressions: Service Date/Time: August 13:03 - CONCLUSION: High-grade right carotid bifurcation stenosis. No significant stenotic narrowing on the left. Sg Dalton MD Head CTA 08/09/17 0000 Signed Impressions: Service Date/Time: August 13:01 - CONCLUSION: Negative Sg Dalton MD Carotid Artery Ultrasound 08/09/17 Signed Impressions: Service Date/Time: August 14:54 - CONCLUSION: 1. High grade stenosis in the right internal carotid artery of greater than 70%%. 2. Mild plaque in the left carotid bulb with no stenosis. Song Beard MD Lumbar Spine MRI 08/08/17 Signed Impressions: Service Date/Time: Tuesday, August 08, 2017 12:12 - CONCLUSION: 1. Acute compression fracture T11. The patient may be a candidate for kyphoplasty if clinically indicated 2. Moderate to severe stenosis at L3-L4 with moderate stenosis at L2-L3 and L4-L5 Jonathan Franklin MD Chest X-Ray [id number]/07/171750 Signed Impressions: Service Date/Time: Monday, August 07, 2017 20:21 - CONCLUSION: No acute disease. Sg Abraham MD Hip and Pelvis X-Ray 08/07/17 Signed Impressions: Service Date/Time: Monday, August 07, 2017 20:21 - CONCLUSION: No acute abnormality is seen. Sg Abraham MD Abdomen/Pelvis CT 08/07/17 Signed Impressions: Service Date/Time: Monday, August 07, 2017 20:46 - CONCLUSION: 1. Left inguinal hernia containing a small segment of the proximal sigmoid colon. Significant bowel dilatation is not seen. 2. Fracture deformity at the superior aspect of T11. This appears likely either acute or subacute. There do appear to be more chronic changes at the L3 and L4 levels as described above. 3. Moderate hiatal hernia with at least a portion of this being a paraesophageal hiatal hernia. 4. Induration seen in the perinephric space especially on the right. Some of this does abut the distended gallbladder. This can be correlated with the patient's symptoms. 5. Calcified granulomas in the spleen. Sg Abraham MD Last 72 hours Impressions Chest X-Ray 08/07/171750 Signed Impressions: Service Date/Time: Monday, August 07, 2017 20:21 - CONCLUSION: No acute disease. Sg Abraham MD Hip and Pelvis X-Ray 08/07/17 Signed Impressions: Service Date/Time: Monday, August 07, 2017 20:21 - CONCLUSION: No acute abnormality is seen. Sg Abraham MD Head CT 08/07/17 Signed Impressions: Service Date/Time: Monday, August 07, 2017 20:43 - CONCLUSION: 1. No intracranial abnormality is seen. 2. Focal right sphenoid sinus disease. Sg Abraham MD Abdomen/Pelvis CT 10/3/17 0000 Signed Impressions: Service Date/Time: Monday, August 07, 2017 20:46 - CONCLUSION: 1. Left inguinal hernia containing a small segment of the proximal sigmoid colon. Significant bowel dilatation is not seen. 2. Fracture deformity at the superior aspect of T11. This appears likely either acute or subacute. There do appear to be more chronic changes at the L3 and L4 levels as described above. 3. Moderate hiatal hernia with at least a portion of this being a paraesophageal hiatal hernia. 4. Induration seen in the perinephric space especially on the right. Some of this does abut the distended gallbladder. This can be correlated with the patient's symptoms. 5. Calcified granulomas in the spleen. Sg Abraham MD Objective Remarks General: NAD, Awake and alert Chest: CTA Cardiac: Regular Abd: +BS, soft ND/NT Ext: No edema A/P Problem List: (1) Delirium ICD Codes: R41.0 - Disorientation, unspecified Status: Acute Plan: 1. Acute delirium, resolved - Her long acting morphine held and prn iv ordered. - Will hold Flexeril 2. Acute cva with left hemiparesis - s/p tpa on 08/09 - Carotid US (08/09) --> High grade stenosis in the right internal carotid artery of greater than 70%. Mild plaque in the left carotid bulb with no stenosis. - Neck CTA (08/09) --> High-grade right carotid bifurcation stenosis. No significant stenotic narrowing on the left. - MRI brain (08/10) --> Acute small punctate infarcts in the posterior right frontal lobe and larger area of infarction in the right parieto-occipital region measuring up to about 3 cm in diameter without hemorrhage, mass effect or shift. Mild to moderate chronic white matter ischemic changes. No acute hemorrhage. - Swallow eval noted: and resume diet as tolerated - PT/OT/ST - Telemetry - anticipate d/c to SNF 09/15 - Case d/w pt's julieta Mondragondoyleuche. 3. Severe right carotid artery stenosis - Case d/w Dr. Harris - NO surgery at this time - medical mgmt - f/u with Dr. Harris in 1 month 4. RYLAN secondary to dehydration, resolved 5. Hypotension, resolved. Likely volume related - BP elevating, pt had been on Amlodipine 5 Mg PO DAILY and Atenolol- Chlorthalidone 50-25 Mg Tab 0.5 Tab PO DAILY, prior to admission for BP control - Case d/w Neurology, Dr. Arrieta (08/13) and Dr. Harris (08/13) Will target SBP reading in the 160s 6. Sinus tachycardia, resolved 7. Mod/severe lumbar stenosis with acute T11 fx and intractable pain. Neurosurgery following. - Nonsurgical mgt for now - TLSO, OOB with brace, - Case d/w Dr. Seay (08/14/17). No surgical intervention. Conservative mgmt only. 8. Leukocytosis 9. Anemia 10. hypokalemia - resolved (2) Carotid stenosis ICD Codes: I65.29 - Occlusion and stenosis of unspecified carotid artery Status: Acute (3) Acute CVA (cerebrovascular accident) ICD Codes: I63.9 - Cerebral infarction, unspecified Status: Acute (4) Hypotension ICD Codes: I95.9 - Hypotension, unspecified Status: Acute (5) RYLAN (acute kidney injury) ICD Codes: N17.9 - Acute kidney failure, unspecified Status: Acute (6) T11 vertebral fracture ICD Codes: S22.089A - Unspecified fracture of T11-T12 vertebra, initial encounter for closed fracture Status: Acute (7) Intractable low back pain ICD Codes: M54.5 - Low back pain Status: Acute (8) Lumbar spinal stenosis ICD Codes: M48.061 - Spinal stenosis, lumbar region without neurogenic claudication Status: Chronic (9) Anemia ICD Codes: D64.9 - Anemia, unspecified Status: Chronic Plan: Baseline hemoglobin generally around 10.5. 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 She notes that she has used naproxen at home and given her presenting mentation she may have been taking more than she is reporting. We'll follow hemoglobin closely. Vitals stable at this point. Repeat hemoglobin last night stable. (10) Acute kidney injury superimposed on chronic kidney disease ICD Codes: N17.9 - Acute kidney failure, unspecified; N18.9 - Chronic kidney disease, unspecified Status: Acute (11) Sinus tachycardia ICD Codes: R00.0 - Tachycardia, unspecified (12) Hypertension ICD Codes: I10 - Essential (primary) hypertension Status: Chronic Problem Qualifiers (1) Carotid stenosis: Qualified Codes: I65.21 - Occlusion and stenosis of right carotid artery (2) Anemia: (3) Hypertension: Qualified Codes: I10 - Essential (primary) hypertension Jesse Sears DO Aug 14, 2017 16:10
--- NOTE | 2017-08-14 21:55 | HHI.PR ---
Review/Management Diagnosis right hemisphere stroke improved after iv TPA right carotid stenosis T11 compression Fx Plan continue with ASA I agree with Dr Harris's recommendation regarding timing or right carotid endarterectomy--she has been stable neurologically and I think waiting for further recovery 3-4 weeks before endarterectomy is reasonable Diagnosis/Plan: (1) Acute ischemic right MCA stroke ICD Codes: I63.511 - Cerebral infarction due to unspecified occlusion or stenosis of right middle cerebral artery Status: Acute Plan: s/p iv tpa mri brain with rt mca strokes 2/2 rt carotid dz follow tele to r/o afib as well no ich recs neuro stable continue aspirin ok for 5th floor with tele (2) Carotid stenosis ICD Codes: I65.29 - Occlusion and stenosis of unspecified carotid artery Status: Acute (3) RYLAN (acute kidney injury) ICD Codes: N17.9 - Acute kidney failure, unspecified Status: Acute (4) Lumbar spinal stenosis ICD Codes: M48.061 - Spinal stenosis, lumbar region without neurogenic claudication Status: Chronic Subjective Subjective Comments No acute events reported No headache Active Medications Current Medications Medications (Trade) Dose Ordered Sig/Nader Route Start Time Stop Time Status Last Admin (NS Flush) 2 ml UNSCH PRN IV FLUSH 08/07/17 18:00 (Morphine Inj) 2 mg Q3H PRN IV PUSH 08/07/17 21:30 08/12/17 00:24 (Oscal-D 250-125) 500 mg DAILY PO 08/08/17 09:00 08/14/17 10:13 (Ferrous Sulfate) 325 mg DAILY PO 08/08/17 09:00 08/14/17 10:12 (Pravachol) 40 mg DAILY PO 08/08/17 09:00 08/14/17 10:12 (Protonix) 40 mg DAILY PO 08/07/17 21:30 08/14/17 10:12 (Ativan Inj) 0.5 mg Q4H PRN IV PUSH 08/09/17 11:30 08/10/17 16:46 Nicardipine HCl 25 mg/Sodium Chloride 250 ml @ 50 mls/hr TITRATE PRN IV 08/09/17 14:15 (Ecotrin Ec) 325 mg DAILY PO 08/10/17 16:45 08/14/17 10:12 (Heparin Inj) 5,000 units BID SQ 08/11/17 21:00 10/10/17 10:13 (Catapres) 0.2 mg Q6H PRN PO 08/13/17 15:30 (Vasotec Inj) 1.25 mg Q6H PRN IV 08/13/17 15:30 Allergies Allergies Coded Allergies No Known Allergies (Verified Allergy, Unknown, 08/07/17) Exam I&O / VS 08/14/17 08/14/17 08/15/17 15:00 23:00 07:00 Intake Total 1528 ml Output Total 1400 ml Balance 128 ml Intake Oral 240 ml IV Total 1288 ml Output Urine Total 1400 ml Vital Signs Date Time Temp Pulse Resp B/P (MAP) Pulse Ox O2 Delivery O2 Flow Rate FiO2 08/14/17 20:00 98.4 116 20 128/60 (82) 97 08/14/17 17:00 97.3 114 16 139/67 (91) 08/14/17 12:49 98.2 109 18 156/70 (98) 95 08/14/17 10:01 101 08/14/17 08:36 97.3 103 18 159/72 (101) 98 08/14/17 04:00 97.8 105 18 132/66 (88) 97 08/14/17 00:00 98.4 107 18 163/71 (101) 97 Psychiatric: Cooperative Exam Comments alert, speech dysarthric CN intact MOTOR 5/5 RUE, 4+/5 LUE Objective Micro and Labs Date/Time Source Procedure Growth Status 08/10/17 20:15 Blood Peripheral Aerobic Blood Culture - Preliminary NO GROWTH IN 4 DAYS Resulted 08/10/17 20:15 Blood Peripheral Anaerobic Blood Culture - Preliminary NO GROWTH IN 4 DAYS Resulted Problem Qualifiers (1) Carotid stenosis: Qualified Codes: I65.21 - Occlusion and stenosis of right carotid artery David Arrieta PhD MD Aug 14, 2017 21:55
[2017-08-15 00:30] VITALS: BP 146/67; PULSE 108; RESP 18; TEMP 98.3; O2SAT 98
[2017-08-15 05:30] VITALS: BP 173/80; PULSE 113; RESP 18; TEMP 98.5; O2SAT 97
[2017-08-15 08:38] VITALS: BP 154/66; PULSE 107; RESP 20; TEMP 98.6; O2SAT 96
[2017-08-15] MEDS: ASPIRIN EC 325 MG TABEC PO SCH (09:47)
[2017-08-15] MEDS: FERROUS SULFATE 325 MG (65 MG ELEMENTAL IRON) TAB PO SCH (09:47)
[2017-08-15] MEDS: PANTOPRAZOLE SOD 40 MG DELAYED RELEASE TAB PO SCH (09:47)
[2017-08-15] MEDS: CALCIUM/VITAMIN D 250 MG/125 U TAB PO SCH (09:47)
[2017-08-15] MEDS: PRAVASTATIN SOD 40 MG TAB PO SCH (09:47)
[2017-08-15] MEDS: HEPARIN SODIUM - SQ 10,000 UNITS/ML VIAL SQ SCH ×2 (09:47→20:41)
--- NOTE | 2017-08-15 12:12 | HHI.DS ---
Discharge Summary Admission Date Aug 07, 2017 at 20:26 Discharge Date: Aug 17, 2017 Admitting Diagnosis RYLAN, Altered mental status. (1) Delirium ICD Codes: R41.0 - Disorientation, unspecified Status: Acute (2) Carotid stenosis ICD Codes: I65.29 - Occlusion and stenosis of unspecified carotid artery Status: Acute (3) Acute CVA (cerebrovascular accident) ICD Codes: I63.9 - Cerebral infarction, unspecified Status: Acute (4) Hypotension ICD Codes: I95.9 - Hypotension, unspecified Status: Acute (5) RYLAN (acute kidney injury) ICD Codes: N17.9 - Acute kidney failure, unspecified Status: Acute (6) T11 vertebral fracture ICD Codes: S22.089A - Unspecified fracture of T11-T12 vertebra, initial encounter for closed fracture Status: Acute (7) Intractable low back pain ICD Codes: M54.5 - Low back pain Status: Acute (8) Lumbar spinal stenosis ICD Codes: M48.061 - Spinal stenosis, lumbar region without neurogenic claudication Status: Chronic (9) Anemia ICD Codes: D64.9 - Anemia, unspecified Status: Chronic (10) Acute kidney injury superimposed on chronic kidney disease ICD Codes: N17.9 - Acute kidney failure, unspecified; N18.9 - Chronic kidney disease, unspecified Status: Acute (11) Sinus tachycardia ICD Codes: R00.0 - Tachycardia, unspecified (12) Hypertension ICD Codes: I10 - Essential (primary) hypertension Status: Chronic Consultants Dr. Berny Rojo [facility] Brief History 87-year-old female well-known to me with history of chronic low back pain presents via EMS for evaluation of back pain. Patient brought in primarily for back pain, however, niece is here and concerned about altered mental status and disorientation. Patient has apparently received 2 doses of morphine extended release 15 mg today which was started yesterday by me due to intractable back pain. She was in her pain management doctor's office this past Sunday and complained of extreme pain in lower back. From there she was transported to the ER where she received IV morphine with some relief. Niece reports that she has not been eating or drinking properly over the last few days due to pain and just "sitting on the couch". She denies fever, chills, chest pain, shortness of breath, jaw pain. She denies hematochezia, melena, hematemesis. She has been taking some naproxen at home. 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 Her primary care physician Dr. Cook. ER evaluation noted for somewhat low systolic pressures in the 80s which have responded to IV fluid bolus and are now in the 110s. Patient initially was somewhat slow to respond but since her pressures are improving with IV fluid and her mentation is also improving. Lab evaluation noted for hemoglobin of 8, white blood cell count 14,000, BUNs 79 and creatinine of 2.9. Her baseline creatinine is usually around 0.9. Baseline hemoglobin is around 10-1/2. Urinalysis noted for some blood and mucus but no obvious bacteria. Imaging is pending. CBC/BMP: 08/13/17 0916 08/13/17 0916 Significant Findings Laboratory Tests Test 08/13/17 09:16 Red Blood Count 2.58 MIL/MM3 (4.00-5.30) Hemoglobin 8.0 GM/DL (11.6-15.3) Hematocrit 24.0 % (35.0-46.0) Monocytes (%) (Auto) 28.1 % (0.0-8.0) Monocytes # (Auto) 2.6 TH/MM3 (0-0.9) Blood Urea Nitrogen 6 MG/DL (7-18) Random Glucose 113 MG/DL (74-106) Calcium Level 8.3 MG/DL (8.5-10.1) Magnesium Level 1.4 MG/DL (1.5-2.5) Estimat Glomerular Filtration Rate 88 ML/MIN (>89) Imaging Last Impressions Head CT 08/10/17 1400 Signed Impressions: Service Date/Time: Thursday, August 10, 2017 14:04 - CONCLUSION: 1. Stable senescent changes without evidence for intercurrent hemorrhage status post TPA administration. Jose Chavez MD Brain MRI 08/10/17 0000 Signed Impressions: Service Date/Time: Thursday, August 10, 2017 17:31 - CONCLUSION: Acute small punctate infarcts in the posterior right frontal lobe and larger area of infarction in the right parieto-occipital region measuring up to about 3 cm in diameter without hemorrhage, mass effect or shift. Mild to moderate chronic white matter ischemic changes. No acute hemorrhage. Kimo Ashby MD Neck CTA 08/09/17 Signed Impressions: Service Date/Time: August 13:03 - CONCLUSION: High-grade right carotid bifurcation stenosis. No significant stenotic narrowing on the left. Sg Dalton MD Head CTA 08/09/17 Signed Impressions: Service Date/Time: August 13:01 - CONCLUSION: Negative Sg Dalton MD Carotid Artery Ultrasound 08/09/17 Signed Impressions: Service Date/Time: August 14:54 - CONCLUSION: 1. High grade stenosis in the right internal carotid artery of greater than 70%%. 2. Mild plaque in the left carotid bulb with no stenosis. Song Beard MD Lumbar Spine MRI 08/08/17 Signed Impressions: Service Date/Time: Tuesday, August 08, 2017 12:12 - CONCLUSION: 1. Acute compression fracture T11. The patient may be a candidate for kyphoplasty if clinically indicated 2. Moderate to severe stenosis at L3-L4 with moderate stenosis at L2-L3 and L4-L5 Jonathan Franklin MD Chest X-Ray 08/07/17 175 Signed Impressions: Service Date/Time: Monday, August 07, 2017 20:21 - CONCLUSION: No acute disease. Sg Abraham MD Hip and Pelvis X-Ray 08/07/17 Signed Impressions: Service Date/Time: Monday, August 07, 2017 20:21 - CONCLUSION: No acute abnormality is seen. Sg Abraham MD Abdomen/Pelvis CT 08/07/17 Signed Impressions: Service Date/Time: Monday, August 07, 2017 20:46 - CONCLUSION: 1. Left inguinal hernia containing a small segment of the proximal sigmoid colon. Significant bowel dilatation is not seen. 2. Fracture deformity at the superior aspect of T11. This appears likely either acute or subacute. There do appear to be more chronic changes at the L3 and L4 levels as described above. 3. Moderate hiatal hernia with at least a portion of this being a paraesophageal hiatal hernia. 4. Induration seen in the perinephric space especially on the right. Some of this does abut the distended gallbladder. This can be correlated with the patient's symptoms. 5. Calcified granulomas in the spleen. Sg Abraham MD PE at Discharge General: NAD, Awake and alert Chest: CTA Cardiac: Regular Abd: +BS, soft ND/NT Ext: No edema Hospital Course Acute delirium, resolved - Her long acting morphine held and prn iv ordered. - Will hold Flexeril Acute cva with left hemiparesis - s/p tpa on 08/09 - Carotid US (08/09) --> High grade stenosis in the right internal carotid artery of greater than 70%. Mild plaque in the left carotid bulb with no stenosis. - Neck CTA (08/09) --> High-grade right carotid bifurcation stenosis. No significant stenotic narrowing on the left. - MRI brain (08/10) --> Acute small punctate infarcts in the posterior right frontal lobe and larger area of infarction in the right parieto-occipital region measuring up to about 3 cm in diameter without hemorrhage, mass effect or shift. Mild to moderate chronic white matter ischemic changes. No acute hemorrhage. - Swallow eval noted: and resume diet as tolerated - PT/OT/ST - Telemetry - anticipate d/c to SNF 08/16 - Case d/w pt's julieta Renae. Severe right carotid artery stenosis - Case d/w Dr. Harris - NO surgery at this time - medical mgmt - f/u with Dr. Harris in 1 month RYLAN secondary to dehydration, resolved Hypotension, resolved. Likely volume related - BP elevating, pt had been on Amlodipine 5 Mg PO DAILY and Atenolol- Chlorthalidone 50-25 Mg Tab 0.5 Tab PO DAILY, prior to admission for BP control - Case d/w Neurology, Dr. Arrieta (08/13) and Dr. Harris (08/13) Will target SBP reading in the 160s Sinus tachycardia- - start atenolol 25 mg BID - HR improved Mod/severe lumbar stenosis with acute T11 fx and intractable pain. Neurosurgery following. - Nonsurgical mgt for now - TLSO, OOB with brace, - Case d/w Dr. Seay (08/14/17). No surgical intervention. Conservative mgmt only. - TLSO brace does not fit patient properly. Dr. Sears discussed case with Dr. Seay plan to DC tomorrow after proper fitting brace provided to patient. Leukocytosis Anemia hypokalemia - resolved Pt Condition on Discharge: Stable Discharge Disposition: Discharge to SNF Discharge Instructions DIET: Follow Instructions for: Heart Healthy Diet Speech Therapy-Diet Recommends: Pureed Activities you can perform: Regular-No Restrictions Follow up Referrals: Neurology - [address] Arrieta Neurosurgery - 3 Weeks @ Neurosurgical - Dr Seay PCP Follow-up - [address] Cook Vascular Surgery - 3 Weeks @ Vascular Surgery with Homer Harris MD Your f/ u appointment is on 09/21/17 at 11:15 Your appointment for a Surveillance Carotid Duplex study is on 09/17/17 at 1100 New Medications: Aspirin DR (Aspirin EC) 325 Mg Tabdr 325 MG PO DAILY for blood thinner, #30 TAB 0 Refills Atenolol (Atenolol) 25 Mg Tab 25 MG PO Q12HR for heart rate, #60 TAB 0 Refills Continued Medications: Amlodipine (Amlodipine) 5 Mg Tab 5 MG PO DAILY for Blood Pressure Management, #30 TAB 0 Refills Calcium Carbonate-Cholecalciferol (Calcium 500 +D) 500-400 Mg-Unit Tab 1 TAB PO DAILY for Calcium Supplement, TAB 0 Refills Cobalamine Combinations (Vitamin N67-Tdvmd Acid) 500-400 Mcg Tab 1 TAB PO DAILY for Nutritional Supplement, TAB 0 Refills Ferrous Sulfate (Iron) 325 Mg Cap 325 MG PO DAILY for Nutritional Supplement, #30 TAB 0 Refills Fish Oil-Cholecalciferol (Fish Oil + D3) 1,200-1,000 Mg-Unit Cap 1 CAP PO DAILY for Nutritional Supplement, #30 CAP 0 Refills Lidocaine Patch 12 HR (Lidocaine Patch 12 HR) 5 % Patch 1 PATCH TOPICAL DAILY PRN for PAIN, #1 BOX 1 Refill Remove patch after 12 hours Omeprazole (Omeprazole) 20 Mg Tab 20 MG PO DAILY, #30 TAB 0 Refills Simvastatin (Simvastatin) 20 Mg Tab 20 MG PO DAILY for Cholesterol Management, #30 TAB 0 Refills Discontinued Medications: Atenolol-Chlorthalidone (Atenolol-Chlorthalidone) 50-25 Mg Tab 0.5 TAB PO DAILY for Blood Pressure Management, #30 TAB 0 Refills Cyclobenzaprine (Flexeril) 10 Mg Tab 10 MG PO TID for Muscle Spasm, #90 TAB 0 Refills Hydrocodone-Acetaminophen (Hydrocodone-Acetaminophen) 5-325 mg Tab 1 TAB PO Q4H PRN for PAIN, TAB 0 Refills Hydrocodone-Acetaminophen (Lortab) 5-325 Mg Tab 1 TAB PO Q6H PRN for PAIN, #15 TAB 0 Refills Morphine ER (Morphine ER) 15 Mg Tab 15 MG PO BID for Pain Management, TAB 0 Refills Naproxen (Naproxen) 500 Mg Tab 500 MG PO BID for 10 Days, #20 TAB 0 Refills Tramadol (Ultram) 50 Mg Tab 50 MG PO Q4H PRN for PAIN, TAB 0 Refills Additional Information Patient examined. Assessment and plan formulated with Radha Hernandez PA-C. I agree with the above. Radha Hernandez Aug 15, 2017 12:12 Jesse Sears DO Aug 18, 2017 21:54
--- NOTE | 2017-08-15 12:13 | HHI.DCPOC ---
Discharge Care Plan Diagnosis: (1) Acute CVA (cerebrovascular accident) (2) Carotid stenosis (3) T11 vertebral fracture Goals to Promote Your Health * To prevent worsening of your condition and complications * To maintain your health at the optimal level Directions to Meet Your Goals Take your medications as prescribed Follow your dietary instruction Follow activity as directed Keep your appointments as scheduled Take your immunizations and boosters as scheduled If your symptoms worsen call your PCP, if no PCP go to Urgent Care Center or Emergency Room Smoking is Dangerous to Your Health. Avoid second hand smoke Call the 24-hour hour crisis hotline for domestic abuse at Radha Hernandez Aug 15, 2017 12:13 Jesse Sears DO Aug 18, 2017 21:54
[2017-08-15 12:18] VITALS: BP 134/62; PULSE 114; RESP 20; TEMP 98.5; O2SAT 97
[2017-08-15] MEDS ORDERED: ASPI325T33 PO (12:55)
--- NOTE | 2017-08-15 13:10 | HHI.PR ---
Subjective Remarks Patient sitting up in bed with nurse at bedside eating lunch Patient c/o fatigue, no other specific complaints Objective Vitals Vital Signs Date Time Temp Pulse Resp B/P (MAP) Pulse Ox O2 Delivery O2 Flow Rate FiO2 08/15/17 12:18 98.5 114 20 134/62 (86) 97 08/15/17 08:38 98.6 107 20 154/66 (95) 96 08/15/17 05:30 98.5 113 18 173/80 (111) 97 08/15/17 00:30 98.3 108 18 146/67 (93) 98 08/14/17 20:00 98.4 116 20 128/60 (82) 97 08/14/17 17:00 97.3 114 16 139/67 (91) Result Diagram: 08/13/1716 08/13/17915 Other Results Laboratory Tests Test 08/13/17 09:16 White Blood Count 9.4 TH/MM3 Red Blood Count 2.58 MIL/MM3 Hemoglobin 8.0 GM/DL Hematocrit 24.0 % Mean Corpuscular Volume 92.8 FL Mean Corpuscular Hemoglobin 30.8 PG Mean Corpuscular Hemoglobin Concent 33.2 % Red Cell Distribution Width 13.6 % Platelet Count 226 TH/MM3 Mean Platelet Volume 8.5 FL Neutrophils (%) (Auto) 56.7 % Lymphocytes (%) (Auto) 13.9 % Monocytes (%) (Auto) 28.1 % Eosinophils (%) (Auto) 0.7 % Basophils (%) (Auto) 0.6 % Neutrophils # (Auto) 5.3 TH/MM3 Lymphocytes # (Auto) 1.3 TH/MM3 Monocytes # (Auto) 2.6 TH/MM3 Eosinophils # (Auto) 0.1 TH/MM3 Basophils # (Auto) 0.1 TH/MM3 CBC Comment AUTO DIFF Differential Comment AUTO DIFF CONFIRMED Blood Urea Nitrogen 6 MG/DL Creatinine 0.64 MG/DL Random Glucose 113 MG/DL Calcium Level 8.3 MG/DL Magnesium Level 1.4 MG/DL Sodium Level 137 MEQ/L Potassium Level 3.8 MEQ/L Chloride Level 102 MEQ/L Carbon Dioxide Level 27.3 MEQ/L Anion Gap 8 MEQ/L Estimat Glomerular Filtration Rate 88 ML/MIN Imaging Last Impressions Head CT 08/10/17 1400 Signed Impressions: Service Date/Time: Thursday, August 10, 2017 14:04 - CONCLUSION: 1. Stable senescent changes without evidence for intercurrent hemorrhage status post TPA administration. Jose Chavez MD Brain MRI 08/10/17 Signed Impressions: Service Date/Time: Thursday, August 10, 2017 17:31 - CONCLUSION: Acute small punctate infarcts in the posterior right frontal lobe and larger area of infarction in the right parieto-occipital region measuring up to about 3 cm in diameter without hemorrhage, mass effect or shift. Mild to moderate chronic white matter ischemic changes. No acute hemorrhage. Kimo Ashby MD Neck CTA 08/09/17 Signed Impressions: Service Date/Time: August 13:03 - CONCLUSION: High-grade right carotid bifurcation stenosis. No significant stenotic narrowing on the left. Sg Dalton MD Head CTA 08/09/17 Signed Impressions: Service Date/Time: August 13:01 - CONCLUSION: Negative Sg Dalton MD Carotid Artery Ultrasound 08/09/17 Signed Impressions: Service Date/Time: August 14:54 - CONCLUSION: 1. High grade stenosis in the right internal carotid artery of greater than 70%%. 2. Mild plaque in the left carotid bulb with no stenosis. Song Beard MD Lumbar Spine MRI 08/08/17 Signed Impressions: Service Date/Time: Tuesday, August 08, 2017 12:12 - CONCLUSION: 1. Acute compression fracture T11. The patient may be a candidate for kyphoplasty if clinically indicated 2. Moderate to severe stenosis at L3-L4 with moderate stenosis at L2-L3 and L4-L5 Jonathan Franklin MD Chest X-Ray 08/07/17 352 Signed Impressions: Service Date/Time: Monday, August 07, 2017 20:21 - CONCLUSION: No acute disease. gS Abraham MD Hip and Pelvis X-Ray 08/07/17 Signed Impressions: Service Date/Time: Monday, August 07, 2017 20:21 - CONCLUSION: No acute abnormality is seen. Sg Abraham MD Abdomen/Pelvis CT 08/07/17 Signed Impressions: Service Date/Time: Monday, August 07, 2017 20:46 - CONCLUSION: 1. Left inguinal hernia containing a small segment of the proximal sigmoid colon. Significant bowel dilatation is not seen. 2. Fracture deformity at the superior aspect of T11. This appears likely either acute or subacute. There do appear to be more chronic changes at the L3 and L4 levels as described above. 3. Moderate hiatal hernia with at least a portion of this being a paraesophageal hiatal hernia. 4. Induration seen in the perinephric space especially on the right. Some of this does abut the distended gallbladder. This can be correlated with the patient's symptoms. 5. Calcified granulomas in the spleen. Sg Abraham MD Last 72 hours Impressions Chest X-Ray 08/07/17 1751 Signed Impressions: Service Date/Time: Monday, August 07, 2017 20:21 - CONCLUSION: No acute disease. Sg Abraham MD Hip and Pelvis X-Ray 08/07/17 0000 Signed Impressions: Service Date/Time: Monday, August 07, 2017 20:21 - CONCLUSION: No acute abnormality is seen. Sg Abraham MD Head CT 08/07/17 0000 Signed Impressions: Service Date/Time: Monday, August 07, 2017 20:43 - CONCLUSION: 1. No intracranial abnormality is seen. 2. Focal right sphenoid sinus disease. Sg Abrahma MD Abdomen/Pelvis CT 08/07/17 0000 Signed Impressions: Service Date/Time: Monday, August 07, 2017 20:46 - CONCLUSION: 1. Left inguinal hernia containing a small segment of the proximal sigmoid colon. Significant bowel dilatation is not seen. 2. Fracture deformity at the superior aspect of T11. This appears likely either acute or subacute. There do appear to be more chronic changes at the L3 and L4 levels as described above. 3. Moderate hiatal hernia with at least a portion of this being a paraesophageal hiatal hernia. 4. Induration seen in the perinephric space especially on the right. Some of this does abut the distended gallbladder. This can be correlated with the patient's symptoms. 5. Calcified granulomas in the spleen. Sg Abraham MD Objective Remarks General: NAD, Awake and alert Chest: CTA Cardiac: mild tachycardia Abd: +BS, soft ND/NT Ext: No edema, left sided weakness Procedures TPA A/P Problem List: (1) Delirium ICD Codes: R41.0 - Disorientation, unspecified Status: Acute Plan: 1. Acute delirium, resolved - Her long acting morphine held and prn iv ordered. - Will hold Flexeril 2. Acute cva with left hemiparesis - s/p tpa on 08/09 - Carotid US (08/09) --> High grade stenosis in the right internal carotid artery of greater than 70%. Mild plaque in the left carotid bulb with no stenosis. - Neck CTA (08/09) --> High-grade right carotid bifurcation stenosis. No significant stenotic narrowing on the left. - MRI brain (08/10) --> Acute small punctate infarcts in the posterior right frontal lobe and larger area of infarction in the right parieto-occipital region measuring up to about 3 cm in diameter without hemorrhage, mass effect or shift. Mild to moderate chronic white matter ischemic changes. No acute hemorrhage. - Swallow eval noted: and resume diet as tolerated - PT/OT/ST - Telemetry - anticipate d/c to SNF 08/16 - Case d/w pt's julieta Renae. 3. Severe right carotid artery stenosis - Case d/w Dr. Harris - NO surgery at this time - medical mgmt - f/u with Dr. Harris in 1 month 4. RYLAN secondary to dehydration, resolved 5. Hypotension, resolved. Likely volume related - BP elevating, pt had been on Amlodipine 5 Mg PO DAILY Atenolol- Chlorthalidone 50-25 Mg Tab 0.5 Tab PO DAILY, prior to admission for BP control - Case d/w Neurology, Dr. Arrieta (08/13) and Dr. Harris (08/13) Will target SBP reading in the 160s 6. Sinus tachycardia - start Atenolol 25 mg PO BID - monitor overnight, plan to DC in AM to SNF 7. Mod/severe lumbar stenosis with acute T11 fx and intractable pain. Neurosurgery following. - Nonsurgical mgt for now - TLSO, OOB with brace, - Case d/w Dr. Seay (08/14/17). No surgical intervention. Conservative mgmt only. 8. Leukocytosis 9. Anemia 10. hypokalemia - resolved (2) Carotid stenosis ICD Codes: I65.29 - Occlusion and stenosis of unspecified carotid artery Status: Acute (3) Acute CVA (cerebrovascular accident) ICD Codes: I63.9 - Cerebral infarction, unspecified Status: Acute (4) Hypotension ICD Codes: I95.9 - Hypotension, unspecified Status: Acute (5) RYLAN (acute kidney injury) ICD Codes: N17.9 - Acute kidney failure, unspecified Status: Acute (6) T11 vertebral fracture ICD Codes: S22.089A - Unspecified fracture of T11-T12 vertebra, initial encounter for closed fracture Status: Acute (7) Intractable low back pain ICD Codes: M54.5 - Low back pain Status: Acute (8) Lumbar spinal stenosis ICD Codes: M48.061 - Spinal stenosis, lumbar region without neurogenic claudication Status: Chronic (9) Anemia ICD Codes: D64.9 - Anemia, unspecified Status: Chronic Plan: Baseline hemoglobin generally around 10.5. 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 She notes that she has used naproxen at home and given her presenting mentation she may have been taking more than she is reporting. We'll follow hemoglobin closely. Vitals stable at this point. Repeat hemoglobin last night stable. (10) Acute kidney injury superimposed on chronic kidney disease ICD Codes: N17.9 - Acute kidney failure, unspecified; N18.9 - Chronic kidney disease, unspecified Status: Acute (11) Sinus tachycardia ICD Codes: R00.0 - Tachycardia, unspecified (12) Hypertension ICD Codes: I10 - Essential (primary) hypertension Status: Chronic Assessment and Plan Patient examined. Assessment and plan formulated with Radha Hernandez PA-C. I agree with the above. Problem Qualifiers (1) Carotid stenosis: Qualified Codes: I65.21 - Occlusion and stenosis of right carotid artery (2) Anemia: (3) Hypertension: Qualified Codes: I10 - Essential (primary) hypertension Radha Hernandez Aug 15, 2017 13:10 Jesse Sears DO Aug 18, 2017 21:53
[2017-08-15] MEDS: ATENOLOL 25 MG TAB PO SCH ×2 (13:17→20:41)
[2017-08-15] MEDS ORDERED: ATEN25TA PO (13:47)
[2017-08-15 16:02] VITALS: BP 150/67; PULSE 94; RESP 18; TEMP 98.6; O2SAT 96
--- NOTE | 2017-08-15 16:19 | HHI.NSPN ---
Note Status Status: Progress Note Interval History Diagnosis CVA spinal; fracture Interval History This is a 87-year-old female with history of chronic low back pain and hypertension, who presents via EMS for evaluation of back pain. She had also mild altered mental status and disorientation. Patient has apparently received 2 doses of morphine extended release due to intractable back pain. She was in her pain management doctor's office last week and complained of extreme pain in lower back. From there she was transported to the ER where she received IV morphine with some relief. Apparently she has not been eating or drinking properly over the last few days due to pain and just "sitting on the couch". 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 ER evaluation noted she was hypotensive with low systolic pressures in the 80s which have responded to IV fluid bolus. She was anemic with I hemoglobin of 8, white blood cell count 14,000, with some renal insufficiency with a BUNs 79 and creatinine of 2.9. MRI of the lumbar spine show lumbar spinal stenosis. In addition she had some acute T11 fracture without retropulsion. A neurosurgical consultation was requested When I went to assess her she was very lethargic. She had a left facial droop and was unable to move her left upper and her left lower extremity. This is an acute change since she has been assisted with the the past hour and found to be functional, without focal deficits. Stroke alert was called 08/10: s/p TPA. doing much better today, more awake and alert, moving left side more. 08/13: milldy confused. reports no pain when laying in bed, increases with movement. stroke w/u with right carotid artery stenosis. 08/14: pain with increased movement, otherwise no pain currently. awaiting TLSO brace. 08/15. She remains neutrologically stable Labs, Micro, & Vital Signs Results Date Time Temp Pulse Resp B/P (MAP) Pulse Ox O2 Delivery O2 Flow Rate FiO2 08/15/17 16:02 98.6 94 18 150/67 (94) 96 08/15/17 12:18 98.5 114 20 134/62 (86) 97 08/15/17 08:38 98.6 107 20 154/66 (95) 96 08/15/17 05:30 98.5 113 18 173/80 (111) 97 08/15/17 00:30 98.3 108 18 146/67 (93) 98 08/14/17 20:00 98.4 116 20 128/60 (82) 97 08/14/17 17:00 97.3 114 16 139/67 (91) 08/16/17 06:59 Intake Total 240 ml Balance 240 ml Constitutional Vital Signs Date Time Temp Pulse Resp B/P (MAP) Pulse Ox O2 Delivery O2 Flow Rate FiO2 08/15/17 16:02 98.6 94 18 150/67 (94) 96 08/15/17 12:18 98.5 114 20 134/62 (86) 97 08/15/17 08:38 98.6 107 20 154/66 (95) 96 08/15/17 05:30 98.5 113 18 173/80 (111) 97 08/15/17 00:30 98.3 108 18 146/67 (93) 98 08/14/17 20:00 98.4 116 20 128/60 (82) 97 08/14/17 17:00 97.3 114 16 139/67 (91) 08/16/17 06:59 Intake Total 240 ml Balance 240 ml Physical Exam Ms. Lau is awake, follows few simple commands. Confused oriented to self only. Cranial nerve examination: pupils 3 mm equal, round, and reactive to light. Extra-ocular movements are intact. Facial motor appear symmetrical. Tongue protrude midline. Neck is soft and supple. Motor: moving all four extremities with left hemiparesis Sensory examination reports intact to light touch DTR's 1+ overall. Neutral response to plantar stimulation Medications Current Medications Current Medications IV Flush (NS Flush) 2 ml UNSCH PRN IV FLUSH FLUSH AFTER USING IV ACCESS; Start 08/07/17 at 18:00 Sodium Chloride 1,000 ml @ 500 mls/hr Q2H IV Last administered on 08/07/17 18 :33; Start 08/07/17 at 17:51; Stop 08/07/17 at 19:50; Status DC Morphine Sulfate (Morphine Inj) 2 mg Q3H PRN IV PUSH pain level 3-10 Last administered on 08/12/17 00:24; Start 08/07/17 at 21:30 Sodium Chloride 500 ml @ 500 mls/hr BOLUS ONCE IV Last administered on 21:30; Start 08/07/17 at 21:30; Stop 08/07/17 at 22:29; Status DC Potassium Chloride/Sodium Chloride 1,000 ml @ 84 mls/hr [id number] IV Last administered on 08/07/17 21:47; Start 08/07/17 at 21:30; Stop 08/09/17 at 11:19 ; Status DC Cyclobenzaprine HCl (Flexeril) 10 mg TID PO Last administered on 08/09/17 08: 36; Start 08/08/17 at 09:00; Stop 08/09/17 at 11:19; Status DC Calcium/Vitamin D (Oscal-D 250-125) 500 mg DAILY PO Last administered on 09:47; Start 08/08/17 at 09:00 Ferrous Sulfate (Ferrous Sulfate) 325 mg DAILY PO Last administered on 09:47; Start 08/08/17 at 09:00 Pravastatin Sodium (Pravachol) 40 mg DAILY PO Last administered on 08/15/17 09:47; Start 08/08/17 at 09:00 Pantoprazole Sodium (Protonix) 40 mg DAILY PO Last administered on 08/15/17 09:47; Start 08/07/17 at 21:30 Pneumococcal Polyvalent Vaccine (Pneumovax-23 Inj) 25 mcg ONCE ONCE IM ; Start 08/09/17 at 10:00; Stop 08/09/17 at 10:01; Status DC Influenza Virus Vaccine (Flu (Quadrivalent) Vaccine Inj) 0.5 ml ONCE ONCE IM ; Start 08/09/17 at 10:00; Stop 08/09/17 at 10:01; Status DC Lorazepam (Ativan Inj) 1 mg CLERK SUPERVISOR IV PUSH ; Start 08/08/17 at 06:00; Stop at 23:59; Status DC Potassium Chloride (KCl) 30 meq ONCE ONCE PO Last administered on 08/08/17 10 :32; Start 08/08/17 at 07:45; Stop 08/08/17 at 07:55; Status DC Ceftriaxone Sodium 1000 mg/ Sodium Chloride 100 ml @ 200 mls/hr ONCE ONCE IV Last administered on 08/08/17 18:08; Start 08/08/17 at 17:00; Stop 08/08/17 at 17:29; Status DC Morphine Sulfate (Morphine Inj) 2 mg ONCE PRN IV IF PAIN > 2; Start 08/08/17 at 20:30; Stop 08/08/17 at 20:30; Status DC Morphine Sulfate (Morphine Inj) 2 mg ONCE PRN IV PUSH IF PAIN > 2; Start at 20:30; Stop 08/08/17 at 22:00; Status DC Digoxin (Lanoxin Inj) 0.125 mg NOW ONCE IV PUSH Last administered on 23:05; Start 08/08/17 at 23:00; Stop 08/08/17 at 23:01; Status DC Dextrose/Sodium Chloride 1,000 ml @ 84 mls/hr [id number] IV Last administered on 08/11/17 12:09; Start 08/09/17 at 11:15; Stop 08/11/17 at 14:25; Status DC Atenolol (Tenormin) 25 mg ONCE ONCE PO Last administered on 08/09/17 12:29; Start 08/09/17 at 11:30; Stop 08/09/17 at 11:31; Status DC Atenolol (Tenormin) 25 mg Q12HR PO ; Start 08/09/17 at 21:00; Stop 08/11/17 at 10:03; Status DC Piperacillin Sod/ Tazobactam Sod 50 ml @ 100 mls/hr Q6H IV Last administered on 08/12/17 05:36; Start 08/09/17 at 12:00; Stop 08/12/17 at 09:40; Status DC Lorazepam (Ativan Inj) 0.5 mg Q4H PRN IV PUSH agitation/anxiety Last administered on 08/10/17 16:46; Start 08/09/17 at 11:30 Cefazolin Sodium/ Dextrose 50 ml @ 150 mls/hr ONCE ONCE IV ; Start 08/10/17 at 06:00; Stop 08/10/17 at 06:00; Status DC Vancomycin HCl 1000 mg/Sodium Chloride 250 ml @ 250 mls/hr ONCE ONCE IV ; Start 08/10/17 at 06:00; Stop 08/10/17 at 06:00; Status DC Chlorhexidine Gluconate (Hibiclens 4% Top Soln) 1 applic HS TOP ; Start at 21:00; Stop 08/09/17 at 21:00; Status DC Sodium Chloride 1,000 ml @ 70 mls/hr [id number] IV Last administered on 03:53; Start 08/09/17 at 13:30; Stop 08/10/17 at 10:33; Status DC Iohexol (Omnipaque 350 Inj) 75 ml STK-MED ONCE IVCONTRAST Last administered on 08/09/17 13:23; Start 08/09/17 at 13:23; Stop 08/09/17 at 13:24; Status DC Alteplase, Recombinant (Activase Bolus) 6.3 mg ONCE ONCE IV Last administered on 08/09/17 13:27; Start 08/09/17 at 13:30; Stop 08/09/17 at 13:35; Status DC Alteplase, Recombinant 56.5 mg/Syringe / Bag 56.5 ml @ 56.5 mls/hr ONCE ONCE IV Last administered on 08/09/17 13:28; Start 08/09/17 at 13:30; Stop at 14:29; Status DC Sodium Chloride (NS Inj) 30 ml ONCE ONCE IVF Last administered on 08/09/17 14 :27; Start 08/09/17 at 13:30; Stop 08/09/17 at 13:38; Status DC Miscellaneous Information No Heparin, Warfarin, Aspir... UNSCH PRN XX SEE DOSE INSTRUCTIONS; Start 08/09/17 at 14:00; Stop 08/10/17 at 13:59; Status DC Nicardipine HCl 25 mg/Sodium Chloride 250 ml @ 50 mls/hr TITRATE PRN IV Blood pressure management; Start 08/09/17 at 14:00; Stop 08/09/17 at 14:07; Status DC Labetalol HCl (Trandate Inj) 10 mg Q4H PRN IV PUSH sbp> 160; Start 08/09/17 at 15:00; Stop 08/09/17 at 15:00; Status DC Nicardipine HCl 25 mg/Sodium Chloride 250 ml @ 50 mls/hr TITRATE PRN IV Blood pressure management; Start 08/09/17 at 14:15 Aspirin (Ecotrin Ec) 325 mg DAILY PO Last administered on 08/15/17 09:47; Start 08/10/17 at 16:45 Gadodiamide (Omniscan Pf Inj) 1 ml STK-MED ONCE IVCONTRAST Last administered on 08/10/17 18:08; Start 08/10/17 at 18:08; Stop 08/10/17 at 18:09; Status DC Gadodiamide (Omniscan Pf Inj) 13 ml STK-MED ONCE IVCONTRAST Last administered on 08/10/17 18:12; Start 08/10/17 at 18:12; Stop 08/10/17 at 18:13; Status DC Potassium Chloride 100 ml @ 50 mls/hr Q2H IV Last administered on 08/11/17 06 :30; Start 08/11/17 at 01:00; Stop 08/11/17 at 08:59; Status DC Heparin Sodium (Porcine) (Heparin Inj) 5,000 units BID SQ Last administered on 08/15/17 09:47; Start 08/11/17 at 21:00 Potassium Chloride/Dextrose/ Sod Cl 1,000 ml @ 84 mls/hr [id number] IV Last administered on 08/12/17 02:25; Start 08/11/17 at 14:30; Stop 08/12/17 at 09:40 ; Status DC Potassium Chloride (KCl) 40 meq ONCE ONCE PO Last administered on 08/11/17 15 :48; Start 08/11/17 at 14:30; Stop 08/11/17 at 14:31; Status DC Potassium Chloride/Dextrose/ Sod Cl 1,000 ml @ 70 mls/hr [id number] IV Last administered on 08/13/17 17:11; Start 08/12/17 at 09:45; Stop 08/14/17 at 16: 18; Status DC Magnesium Sulfate/ Dextrose 100 ml @ 100 mls/hr Q1H IV Last administered on 19:00; Start 08/12/17 at 17:00; Stop 08/12/17 at 19:59; Status DC Potassium Chloride (KCl) 20 meq ONCE ONCE PO Last administered on 08/12/17 18 :06; Start 08/12/17 at 17:00; Stop 08/12/17 at 17:01; Status DC Clonidine (Catapres) 0.2 mg Q6H PRN PO SBP above 180; Start 08/13/17 at 15:30 Enalaprilat (Vasotec Inj) 1.25 mg Q6H PRN IV sbp above 180; Start 08/13/17 at 15:30 Atenolol (Tenormin) 25 mg Q12HR PO Last administered on 08/15/17t 13:17; Start 08/15/17 at 13:00 Attending Statement Status post Jose Schwartz MD Aug 15, 2017 16:18
--- NOTE | 2017-08-15 17:03 | HHI.PR ---
Review/Management Diagnosis right hemisphere stroke improved after iv TPA right carotid stenosis T11 compression Fx Plan continue with ASA right carotid endarterectomy 3-4 weeks ok from neurology standpoint to dc to rehab when ok with Dr Seay. Follow up with Dr Harris 3-4 weeks Diagnosis/Plan: (1) Acute ischemic right MCA stroke ICD Codes: I63.511 - Cerebral infarction due to unspecified occlusion or stenosis of right middle cerebral artery Status: Acute Plan: s/p iv tpa mri brain with rt mca strokes 2/2 rt carotid dz follow tele to r/o afib as well no ich recs neuro stable continue aspirin ok for 5th floor with tele (2) Carotid stenosis ICD Codes: I65.29 - Occlusion and stenosis of unspecified carotid artery Status: Acute (3) RYLAN (acute kidney injury) ICD Codes: N17.9 - Acute kidney failure, unspecified Status: Acute (4) Lumbar spinal stenosis ICD Codes: M48.061 - Spinal stenosis, lumbar region without neurogenic claudication Status: Chronic Subjective Subjective Comments No acute events reported feels improved in left sided strength Active Medications Current Medications Medications (Trade) Dose Ordered Sig/Nader Route Start Time Stop Time Status Last Admin (NS Flush) 2 ml UNSCH PRN IV FLUSH 08/07/17 18:00 (Morphine Inj) 2 mg Q3H PRN IV PUSH 08/07/17 21:30 08/12/17 00:24 (Oscal-D 250-125) 500 mg DAILY PO 08/08/17 09:00 08/15/17 09:47 (Ferrous Sulfate) 325 mg DAILY PO 08/08/17 09:00 08/15/17 09:47 (Pravachol) 40 mg DAILY PO 08/08/17 09:00 08/15/17 09:47 (Protonix) 40 mg DAILY PO 08/07/17 21:30 08/15/17 09:47 (Ativan Inj) 0.5 mg Q4H PRN IV PUSH 08/09/17 11:30 08/10/17 16:46 Nicardipine HCl 25 mg/Sodium Chloride 250 ml @ 50 mls/hr TITRATE PRN IV 08/09/17 14:15 (Ecotrin Ec) 325 mg DAILY PO 08/10/17 16:45 08/15/17 09:47 (Heparin Inj) 5,000 units BID SQ 08/11/17 21:00 08/15/17 09:47 (Catapres) 0.2 mg Q6H PRN PO 08/13/17 15:30 (Vasotec Inj) 1.25 mg Q6H PRN IV 08/13/17 15:30 (Tenormin) 25 mg Q12HR PO 08/15/17 13:00 08/15/17 13:17 Allergies Allergies Coded Allergies No Known Allergies (Verified Allergy, Unknown, 08/07/17) Exam I&O / VS 08/15/17 08/15/17 08/16/17 14:59 22:59 06:59 Intake Total 240 ml Balance 240 ml Intake Oral 240 ml # Voids 3 # Bowel Movements 0 Vital Signs Date Time Temp Pulse Resp B/P (MAP) Pulse Ox O2 Delivery O2 Flow Rate FiO2 08/15/17 16:02 98.6 94 18 150/67 (94) 96 08/15/17 12:18 98.5 114 20 134/62 (86) 97 08/15/17 08:38 98.6 107 20 154/66 (95) 96 08/15/17 05:30 98.5 113 18 173/80 (111) 97 08/15/17 00:30 98.3 108 18 146/67 (93) 98 08/14/17 20:00 98.4 116 20 128/60 (82) 97 Psychiatric: Cooperative Exam Comments alert, speech dysarthric CN intact MOTOR 5/5 RUE, 4+/5 LUE Objective Micro and Labs Date/Time Source Procedure Growth Status 08/10/17 20:15 Blood Peripheral Aerobic Blood Culture - Final NO GROWTH IN 5 DAYS Complete 08/10/17 20:15 Blood Peripheral Anaerobic Blood Culture - Final NO GROWTH IN 5 DAYS Complete Problem Qualifiers (1) Carotid stenosis: Qualified Codes: I65.21 - Occlusion and stenosis of right carotid artery David Arrieta PhD MD Aug 15, 2017 17:03
[2017-08-15 20:57] VITALS: BP 130/61; PULSE 80; RESP 16; TEMP 99; O2SAT 95
[2017-08-16] VITALS (7 sets, daily range): BP systolic 99–145; BP diastolic 50–78; PULSE 70–85; RESP 17–18; TEMP 97.5–98.5; O2SAT 95–98
[2017-08-16] MEDS: MORPHINE SULFATE 4 MG/ML INJ IV PUSH PRN (03:59)
[2017-08-16] MEDS: ATENOLOL 25 MG TAB PO SCH ×2 (09:00→22:27)
[2017-08-16] MEDS: ASPIRIN EC 325 MG TABEC PO SCH (09:42)
[2017-08-16] MEDS: FERROUS SULFATE 325 MG (65 MG ELEMENTAL IRON) TAB PO SCH (09:42)
[2017-08-16] MEDS: PRAVASTATIN SOD 40 MG TAB PO SCH (09:42)
[2017-08-16] MEDS: CALCIUM/VITAMIN D 250 MG/125 U TAB PO SCH (09:43)
[2017-08-16] MEDS: PANTOPRAZOLE SOD 40 MG DELAYED RELEASE TAB PO SCH (09:44)
[2017-08-16] MEDS: HEPARIN SODIUM - SQ 10,000 UNITS/ML VIAL SQ SCH ×2 (09:45→22:27)
--- NOTE | 2017-08-16 12:35 | HHI.NSPN ---
Note Status Status: Progress Note Interval History Interval History This is a 87-year-old female with history of chronic low back pain and hypertension, who presents via EMS for evaluation of back pain. She had also mild altered mental status and disorientation. Patient has apparently received 2 doses of morphine extended release due to intractable back pain. She was in her pain management doctor's office last week and complained of extreme pain in lower back. From there she was transported to the ER where she received IV morphine with some relief. Apparently she has not been eating or drinking properly over the last few days due to pain and just "sitting on the couch". 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 ER evaluation noted she was hypotensive with low systolic pressures in the 80s which have responded to IV fluid bolus. She was anemic with I hemoglobin of 8, white blood cell count 14,000, with some renal insufficiency with a BUNs 79 and creatinine of 2.9. MRI of the lumbar spine show lumbar spinal stenosis. In addition she had some acute T11 fracture without retropulsion. A neurosurgical consultation was requested When I went to assess her she was very lethargic. She had a left facial droop and was unable to move her left upper and her left lower extremity. This is an acute change since she has been assisted with the the past hour and found to be functional, without focal deficits. Stroke alert was called 08/10: s/p TPA. doing much better today, more awake and alert, moving left side more. 08/13: milldy confused. reports no pain when laying in bed, increases with movement. stroke w/u with right carotid artery stenosis. 08/14: pain with increased movement, otherwise no pain currently. awaiting TLSO brace. 08/16: sitting up in chair with TLSO, c/o not fitting well w/o much support Labs, Micro, & Vital Signs Results Date Time Temp Pulse Resp B/P (MAP) Pulse Ox O2 Delivery O2 Flow Rate FiO2 08/16/17 12:10 97.9 83 18 126/63 (84) 98 08/16/17 10:12 78 18 128/59 (82) 95 08/16/17 07:46 97.5 71 17 99/50 (66) 96 08/16/17 05:28 98.0 70 18 145/62 (89) 96 08/16/17 00:09 98.5 76 18 140/63 (88) 96 08/15/17 20:57 99.0 80 16 130/61 (84) 95 08/15/17 16:02 98.6 94 18 150/67 (94) 96 Constitutional Vital Signs Date Time Temp Pulse Resp B/P (MAP) Pulse Ox O2 Delivery O2 Flow Rate FiO2 08/16/17 12:10 97.9 83 18 126/63 (84) 98 08/16/17 10:12 78 18 128/59 (82) 95 08/16/17 07:46 97.5 71 17 99/50 (66) 96 08/16/17 05:28 98.0 70 18 145/62 (89) 96 08/16/17 00:09 98.5 76 18 140/63 (88) 96 08/15/17 20:57 99.0 80 16 130/61 (84) 95 08/15/17 16:02 98.6 94 18 150/67 (94) 96 Review of Systems Constitutional: DENIES: Fever Musculoskeletal: COMPLAINS OF: Back pain Physical Exam Ms. Lau is awake, follows few simple commands. Sitting up in chair with TLSO which appears to poorly fit the patient Cranial nerve examination: pupils 3 mm equal, round, and reactive to light. Extra-ocular movements are intact. Facial motor appear symmetrical. Tongue protrude midline. Neck is soft and supple. Motor: moving all four extremities with left hemiparesis Sensory examination reports intact to light touch DTR's 1+ overall. Neutral response to plantar stimulation Medications Current Medications Current Medications Medications (Trade) Dose Ordered Sig/Nader Route PRN Reason Start Time Stop Time Status Last Admin Dose Admin IV Flush (NS Flush) 2 ml UNSCH PRN IV FLUSH FLUSH AFTER USING IV ACCESS 08/07/17 18:00 Morphine Sulfate (Morphine Inj) 2 mg Q3H PRN IV PUSH pain level 3-10 08/07/17 21:30 08/16/17 03:59 Calcium/Vitamin D (Oscal-D 250-125) 500 mg DAILY PO 08/08/17 09:00 08/16/17 09:43 Ferrous Sulfate (Ferrous Sulfate) 325 mg DAILY PO 08/08/17 09:00 08/16/17 09:42 Pravastatin Sodium (Pravachol) 40 mg DAILY PO 08/08/17 09:00 08/16/17 09:42 Pantoprazole Sodium (Protonix) 40 mg DAILY PO 08/07/17 21:30 08/16/17 09:44 Lorazepam (Ativan Inj) 0.5 mg Q4H PRN IV PUSH agitation/anxiety 08/09/17 11:30 08/10/17 16:46 Nicardipine HCl 25 mg/Sodium Chloride 250 ml @ 50 mls/hr TITRATE PRN IV Blood pressure management 08/09/17 14:15 Aspirin (Ecotrin Ec) 325 mg DAILY PO 08/10/17 16:45 08/16/17 09:42 Heparin Sodium (Porcine) (Heparin Inj) 5,000 units BID SQ 08/11/17 21:00 08/16/17 09:45 Clonidine (Catapres) 0.2 mg Q6H PRN PO SBP above 180 08/13/17 15:30 Enalaprilat (Vasotec Inj) 1.25 mg Q6H PRN IV sbp above 180 08/13/17 15:30 Atenolol (Tenormin) 25 mg Q12HR PO 08/15/17 13:00 08/15/17 20:41 Medical Decision Making MDM Remarks 87 y/o female s/p fall 1. acute T11 compression fracture, pain stable, improving. patient with increase risk with surgery due to recent CVA 2. acute right CVA with left hemiparesis 08/11, s/p TPA, left hemiparesis improving Plan Plan Remarks current TLSO not fitting well, unable to obtain Xuan vazquez - Dr. Seay requests custom TLSO Neurology following for management of stroke cont stroke therapy - PT, OT, ST ok to dc to rehab from [facility] standpoint once she has custom TLSO, follow up in office 3-4 weeks with f/u Starr Ng Aug 16, 2017 12:35
--- NOTE | 2017-08-16 14:20 | HHI.PR ---
Subjective Remarks Patient doing well concerned with brace not fitting properly offers no other specific complaints at this time Objective Vitals Vital Signs Date Time Temp Pulse Resp B/P (MAP) Pulse Ox O2 Delivery O2 Flow Rate FiO2 08/16/17 12:10 97.9 83 18 126/63 (84) 98 08/16/17 10:12 78 18 128/59 (82) 95 08/16/17 07:46 97.5 71 17 99/50 (66) 96 08/16/17 05:28 98.0 70 18 145/62 (89) 96 08/16/17 00:09 98.5 76 18 140/63 (88) 96 08/15/17 20:57 99.0 80 16 130/61 (84) 95 08/15/17 16:02 98.6 94 18 150/67 (94) 96 08/16/17 08/16/17 08/17/17 15:00 23:00 07:00 Intake Total 240 ml Balance 240 ml Intake Oral 240 ml # Voids 1 Result Diagram: 08/13/17 0916 08/13/17 0916 Imaging Last Impressions Head CT 08/10/17 1400 Signed Impressions: Service Date/Time: Thursday, August 10, 2017 14:04 - CONCLUSION: 1. Stable senescent changes without evidence for intercurrent hemorrhage status post TPA administration. Jose Chavez MD Brain MRI 08/10/17 0000 Signed Impressions: Service Date/Time: Thursday, August 10, 2017 17:31 - CONCLUSION: Acute small punctate infarcts in the posterior right frontal lobe and larger area of infarction in the right parieto-occipital region measuring up to about 3 cm in diameter without hemorrhage, mass effect or shift. Mild to moderate chronic white matter ischemic changes. No acute hemorrhage. Kimo Ashby MD Neck CTA 08/09/17 Signed Impressions: Service Date/Time: August 13:03 - CONCLUSION: High-grade right carotid bifurcation stenosis. No significant stenotic narrowing on the left. Sg Dalton MD Head CTA 08/09/17 0000 Signed Impressions: Service Date/Time: August 13:01 - CONCLUSION: Negative Sg Dalton MD Carotid Artery Ultrasound 08/09/17 0000 Signed Impressions: Service Date/Time: August 14:54 - CONCLUSION: 1. High grade stenosis in the right internal carotid artery of greater than 70%%. 2. Mild plaque in the left carotid bulb with no stenosis. Song Beard MD Lumbar Spine MRI 08/08/17 Signed Impressions: Service Date/Time: Tuesday, August 08, 2017 12:12 - CONCLUSION: 1. Acute compression fracture T11. The patient may be a candidate for kyphoplasty if clinically indicated 2. Moderate to severe stenosis at L3-L4 with moderate stenosis at L2-L3 and L4-L5 Jonathan Franklin MD Chest X-Ray 08/07/171750 Signed Impressions: Service Date/Time: Monday, August 07, 2017 20:21 - CONCLUSION: No acute disease. Sg Abraham MD Hip and Pelvis X-Ray 08/07/17 Signed Impressions: Service Date/Time: Monday, August 07, 2017 20:21 - CONCLUSION: No acute abnormality is seen. Sg Abraham MD Abdomen/Pelvis CT 08/07/17 Signed Impressions: Service Date/Time: Monday, August 07, 2017 20:46 - CONCLUSION: 1. Left inguinal hernia containing a small segment of the proximal sigmoid colon. Significant bowel dilatation is not seen. 2. Fracture deformity at the superior aspect of T11. This appears likely either acute or subacute. There do appear to be more chronic changes at the L3 and L4 levels as described above. 3. Moderate hiatal hernia with at least a portion of this being a paraesophageal hiatal hernia. 4. Induration seen in the perinephric space especially on the right. Some of this does abut the distended gallbladder. This can be correlated with the patient's symptoms. 5. Calcified granulomas in the spleen. Sg Abraham MD Last 72 hours Impressions Chest X-Ray 08/07/171750 Signed Impressions: Service Date/Time: Monday, August 07, 2017 20:21 - CONCLUSION: No acute disease. Sg Abraham MD Hip and Pelvis X-Ray 08/07/17 Signed Impressions: Service Date/Time: Monday, August 07, 2017 20:21 - CONCLUSION: No acute abnormality is seen. Sg Abraham MD Head CT 08/07/17 Signed Impressions: Service Date/Time: Monday, August 07, 2017 20:43 - CONCLUSION: 1. No intracranial abnormality is seen. 2. Focal right sphenoid sinus disease. Sg Abraham MD Abdomen/Pelvis CT 08/07/17 0000 Signed Impressions: Service Date/Time: Monday, August 07, 2017 20:46 - CONCLUSION: 1. Left inguinal hernia containing a small segment of the proximal sigmoid colon. Significant bowel dilatation is not seen. 2. Fracture deformity at the superior aspect of T11. This appears likely either acute or subacute. There do appear to be more chronic changes at the L3 and L4 levels as described above. 3. Moderate hiatal hernia with at least a portion of this being a paraesophageal hiatal hernia. 4. Induration seen in the perinephric space especially on the right. Some of this does abut the distended gallbladder. This can be correlated with the patient's symptoms. 5. Calcified granulomas in the spleen. Sg Abraham MD Objective Remarks General: NAD, Awake and alert Chest: CTA Cardiac: mild tachycardia Abd: +BS, soft ND/NT Ext: No edema, left sided weakness Procedures TPA A/P Problem List: (1) Delirium ICD Codes: R41.0 - Disorientation, unspecified Status: Acute Plan: 1. Acute delirium, resolved - Her long acting morphine held and prn iv ordered. - Will hold Flexeril 2. Acute cva with left hemiparesis - s/p tpa on 08/09 - Carotid US (08/09) --> High grade stenosis in the right internal carotid artery of greater than 70%. Mild plaque in the left carotid bulb with no stenosis. - Neck CTA (08/09) --> High-grade right carotid bifurcation stenosis. No significant stenotic narrowing on the left. - MRI brain (08/10) --> Acute small punctate infarcts in the posterior right frontal lobe and larger area of infarction in the right parieto-occipital region measuring up to about 3 cm in diameter without hemorrhage, mass effect or shift. Mild to moderate chronic white matter ischemic changes. No acute hemorrhage. - Swallow eval noted: and resume diet as tolerated - PT/OT/ST - Telemetry - anticipate d/c to SNF 08/16 - Case d/w pt's julieta Renae. 3. Severe right carotid artery stenosis - Case d/w Dr. Harris - NO surgery at this time - medical mgmt - f/u with Dr. Harris in 1 month 4. RYLAN secondary to dehydration, resolved 5. Hypotension, resolved. Likely volume related - BP elevating, pt had been on Amlodipine 5 Mg PO DAILY Atenolol- Chlorthalidone 50-25 Mg Tab 0.5 Tab PO DAILY, prior to admission for BP control - Case d/w Neurology, Dr. Arrieta (08/13) and Dr. Harris (08/13) Will target SBP reading in the 160s 6. Sinus tachycardia - start Atenolol 25 mg PO BID - HR improved 7. Mod/severe lumbar stenosis with acute T11 fx and intractable pain. Neurosurgery following. - Nonsurgical mgt for now - TLSO, OOB with brace, - Case d/w Dr. Seay (08/14/17). No surgical intervention. Conservative mgmt only. - Dr. Sears discussed case with Dr. Seay who reports new brace will be available tomorrow. 8. Leukocytosis 9. Anemia 10. hypokalemia - resolved Plan to DC to SNF tomorrow after proper fitting brace provided to patient (2) Carotid stenosis ICD Codes: I65.29 - Occlusion and stenosis of unspecified carotid artery Status: Acute (3) Acute CVA (cerebrovascular accident) ICD Codes: I63.9 - Cerebral infarction, unspecified Status: Acute (4) Hypotension ICD Codes: I95.9 - Hypotension, unspecified Status: Acute (5) RYLAN (acute kidney injury) ICD Codes: N17.9 - Acute kidney failure, unspecified Status: Acute (6) T11 vertebral fracture ICD Codes: S22.089A - Unspecified fracture of T11-T12 vertebra, initial encounter for closed fracture Status: Acute (7) Intractable low back pain ICD Codes: M54.5 - Low back pain Status: Acute (8) Lumbar spinal stenosis ICD Codes: M48.061 - Spinal stenosis, lumbar region without neurogenic claudication Status: Chronic (9) Anemia ICD Codes: D64.9 - Anemia, unspecified Status: Chronic Plan: Baseline hemoglobin generally around 10.5. 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 She notes that she has used naproxen at home and given her presenting mentation she may have been taking more than she is reporting. We'll follow hemoglobin closely. Vitals stable at this point. Repeat hemoglobin last night stable. (10) Acute kidney injury superimposed on chronic kidney disease ICD Codes: N17.9 - Acute kidney failure, unspecified; N18.9 - Chronic kidney disease, unspecified Status: Acute (11) Sinus tachycardia ICD Codes: R00.0 - Tachycardia, unspecified (12) Hypertension ICD Codes: I10 - Essential (primary) hypertension Status: Chronic Assessment and Plan Patient examined. Assessment and plan formulated with Radha Hernandez PA-C. I agree with the above. Problem Qualifiers (1) Carotid stenosis: Qualified Codes: I65.21 - Occlusion and stenosis of right carotid artery (2) Anemia: (3) Hypertension: Qualified Codes: I10 - Essential (primary) hypertension Radha Hernandez Aug 16, 2017 14:20 Jesse Sears DO Aug 18, 2017 21:53
[2017-08-16] MEDS ORDERED: ACETAMINOPHEN 500 MG CPLT PO PRN (15:00)
[2017-08-16] MEDS ORDERED: ACETAMINOPHEN/HYDROcodone 325 MG/5 MG TAB PO PRN (15:00)
[2017-08-17 00:40] VITALS: BP 130/67; PULSE 80; RESP 19; TEMP 98.8; O2SAT 96
[2017-08-17 06:10] VITALS: BP 120/66; PULSE 88; RESP 20; TEMP 97.2; O2SAT 97
[2017-08-17 08:00] VITALS: BP 128/58; PULSE 76; RESP 15; TEMP 97.5; O2SAT 98
[2017-08-17] MEDS ORDERED: INFLUENZA VIRUS VACCINE (QUADRIVALENT) 0.5 ML SYR IM ONE (10:00)
[2017-08-17] MEDS ORDERED: PNEUMOCOCCAL POLYVALENT INJ 25 MCG/0.5 ML SYR IM ONE (10:00)
[2017-08-17] MEDS: PRAVASTATIN SOD 40 MG TAB PO SCH (11:44)
[2017-08-17] MEDS: PANTOPRAZOLE SOD 40 MG DELAYED RELEASE TAB PO SCH (11:44)
[2017-08-17] MEDS: FERROUS SULFATE 325 MG (65 MG ELEMENTAL IRON) TAB PO SCH (11:45)
[2017-08-17] MEDS: CALCIUM/VITAMIN D 250 MG/125 U TAB PO SCH (11:45)
[2017-08-17] MEDS: ASPIRIN EC 325 MG TABEC PO SCH (11:45)
[2017-08-17] MEDS: HEPARIN SODIUM - SQ 10,000 UNITS/ML VIAL SQ SCH (11:51)
[2017-08-17 12:00] VITALS: BP 134/61; PULSE 86; RESP 15; TEMP 97.4; O2SAT 98
[2017-08-17] MEDS: ATENOLOL 25 MG TAB PO SCH (12:01)
--- NOTE | 2017-08-17 16:15 | HHI.NSPN ---
History Chief Complaint: mid back pain. Interval History This is a 87-year-old female with history of chronic low back pain and hypertension, who presents via EMS for evaluation of back pain. She had also mild altered mental status and disorientation. Patient has apparently received 2 doses of morphine extended release due to intractable back pain. She was in her pain management doctor's office last week and complained of extreme pain in lower back. From there she was transported to the ER where she received IV morphine with some relief. Apparently she has not been eating or drinking properly over the last few days due to pain and just "sitting on the couch". 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 ER evaluation noted she was hypotensive with low systolic pressures in the 80s which have responded to IV fluid bolus. She was anemic with I hemoglobin of 8, white blood cell count 14,000, with some renal insufficiency with a BUNs 79 and creatinine of 2.9. MRI of the lumbar spine show lumbar spinal stenosis. In addition she had some acute T11 fracture without retropulsion. A neurosurgical consultation was requested When I went to assess her she was very lethargic. She had a left facial droop and was unable to move her left upper and her left lower extremity. This is an acute change since she has been assisted with the the past hour and found to be functional, without focal deficits. Stroke alert was called 08/10: s/p TPA. doing much better today, more awake and alert, moving left side more. 08/13: milldy confused. reports no pain when laying in bed, increases with movement. stroke w/u with right carotid artery stenosis. 08/14: pain with increased movement, otherwise no pain currently. awaiting TLSO brace. 08/16: sitting up in chair with TLSO, c/o not fitting well w/o much support 08/17: Pt complains of mid back pain without radicular pain into ribs. She states she was up in a chair with TLSO brace on. Poor appetite. She moves LEs with good strength. Review of Systems General: Negative for: fever, chills, insomnia Respiratory: Negative for: shortness of breath, cough, sputum Cardiovascular: Negative for: chest pain, orthopnea Gastrointestinal: Negative for: nausea, vomitting, diarrhea, constipation Exam Results Vital Signs Date Time Temp Pulse Resp B/P (MAP) Pulse Ox O2 Delivery O2 Flow Rate FiO2 08/17/17 12:00 97.4 86 15 134/61 (85) 98 Physical Examination Resp: CTA bilaterally Heart: NSR no murmurs Abd: Soft positive bs Skin: No cyanosis or erythema Muscle: Moves LEs with good strength. Custom TLSO brace at bedside. Neuro: Pt awake and alert. Follows commands well. Speech clear and appropriate. Sensation intact in LEs to examination. Lab, Micro, Other Results Last Impressions Head CT 08/10/17 1400 Signed Impressions: Service Date/Time: Thursday, August 10, 2017 14:04 - CONCLUSION: 1. Stable senescent changes without evidence for intercurrent hemorrhage status post TPA administration. Jose Chavez MD Brain MRI 08/10/17 0000 Signed Impressions: Service Date/Time: Thursday, August 10, 2017 17:31 - CONCLUSION: Acute small punctate infarcts in the posterior right frontal lobe and larger area of infarction in the right parieto-occipital region measuring up to about 3 cm in diameter without hemorrhage, mass effect or shift. Mild to moderate chronic white matter ischemic changes. No acute hemorrhage. Kimo Ashby MD Neck CTA 08/09/17 0000 Signed Impressions: Service Date/Time: August 13:03 - CONCLUSION: High-grade right carotid bifurcation stenosis. No significant stenotic narrowing on the left. Sg Dalton MD Head CTA 08/09/17 0000 Signed Impressions: Service Date/Time: August 13:01 - CONCLUSION: Negative Sg Dalton MD Carotid Artery Ultrasound 08/09/17 0000 Signed Impressions: Service Date/Time: August 14:54 - CONCLUSION: 1. High grade stenosis in the right internal carotid artery of greater than 70%%. 2. Mild plaque in the left carotid bulb with no stenosis. Song Beard MD Lumbar Spine MRI 08/08/17 0000 Signed Impressions: Service Date/Time: Tuesday, August 08, 2017 12:12 - CONCLUSION: 1. Acute compression fracture T11. The patient may be a candidate for kyphoplasty if clinically indicated 2. Moderate to severe stenosis at L3-L4 with moderate stenosis at L2-L3 and L4-L5 Jonathan Franklin MD Chest X-Ray 08/07/17 1751 Signed Impressions: Service Date/Time: Monday, August 07, 2017 20:21 - CONCLUSION: No acute disease. Sg Abraham MD Hip and Pelvis X-Ray 08/07/17 0000 Signed Impressions: Service Date/Time: Monday, August 07, 2017 20:21 - CONCLUSION: No acute abnormality is seen. Sg Abraham MD Abdomen/Pelvis CT 08/07/17 0000 Signed Impressions: Service Date/Time: Monday, August 07, 2017 20:46 - CONCLUSION: 1. Left inguinal hernia containing a small segment of the proximal sigmoid colon. Significant bowel dilatation is not seen. 2. Fracture deformity at the superior aspect of T11. This appears likely either acute or subacute. There do appear to be more chronic changes at the L3 and L4 levels as described above. 3. Moderate hiatal hernia with at least a portion of this being a paraesophageal hiatal hernia. 4. Induration seen in the perinephric space especially on the right. Some of this does abut the distended gallbladder. This can be correlated with the patient's symptoms. 5. Calcified granulomas in the spleen. Sg Abraham MD Medical Decision Making Impression and Plan 87 y/o female s/p fall 1. acute T11 compression fracture, pain stable, improving. patient with increase risk with surgery due to recent CVA 2. acute right CVA with left hemiparesis 08/11, s/p TPA, left hemiparesis improving Plan Plan Plan Remarks TLSO brace at bedside and pt was reportedly up today in it. Neurology following for management of stroke cont stroke therapy - PT, OT, ST ok to dc to rehab from [facility] standpoint once she has custom TLSO, follow up in Dr. marin' office 3-4 weeks with f/u Nilo Graham Aug 17, 2017 4:15 pm
== END 2017-08-17 16:23 | DRG 682 ==
LOC: PHED 17:03 → PHEDA 20:26 → PH5A 22:47 → N05A 08-08 21:58 → N03A 08-09 13:40 → N05A 08-12 14:53
PROVIDERS: ADMIT Hospitalist; ATTEND Hospitalist
DX: N17.9 Acute kidney failure, unspecified (principal); I63.231 Cerebral infarction due to unspecified occlusion or stenosis of right carotid arteries; S22.089A Unspecified fracture of T11-T12 vertebra, initial encounter for closed fracture; B37.0 Candidal stomatitis; F05 Delirium due to known physiological condition; I95.9 Hypotension, unspecified; G81.94 Hemiplegia, unspecified affecting left nondominant side; E86.0 Dehydration; N18.3 Chronic kidney disease, stage 3 (moderate); M48.061 Spinal stenosis, lumbar region without neurogenic claudication; R33.9 Retention of urine, unspecified; R00.0 Tachycardia, unspecified; I12.9 Hypertensive chronic kidney disease with stage 1 through stage 4 chronic kidney disease, or unspecified chronic kidney disease; R29.713 NIHSS score 13; R47.1 Dysarthria and anarthria; G89.29 Other chronic pain; R29.810 Facial weakness; E87.6 Hypokalemia; D72.829 Elevated white blood cell count, unspecified; I35.0 Nonrheumatic aortic (valve) stenosis; K21.9 Gastro-esophageal reflux disease without esophagitis; M81.0 Age-related osteoporosis without current pathological fracture; E78.5 Hyperlipidemia, unspecified; M47.816 Spondylosis without myelopathy or radiculopathy, lumbar region; D64.9 Anemia, unspecified; Z87.11 Personal history of peptic ulcer disease; Z87.891 Personal history of nicotine dependence; Z87.19 Personal history of other diseases of the digestive system; W19.XXXA Unspecified fall, initial encounter; Z23 Encounter for immunization
CPT/HCPCS: 70450; 70496; 70498; 70553; 71010; 72148; 73502; 74176; 80048; 80053; 80061; 80307; 81001; 82435; 82550; 82565; 82947; 83735; 84132; 84295; 84484; 84520; 85007; 85018; 85025; 85027; 85384; 85610; 85730; 86850; 86900; 86901; 86920; 87040; 87641; 90686; 90732; 93005; 93306; 93880; 99285; A9579; J0696; J1160; J1644; J2060; J2270; J2543; J2997; J3475; J3480; J7030; J7040; J7042; L0200; L0484; P9612; Q2038; Q9967

== ENCOUNTER 2017-12-05 17:03 | Inpatient (IN) | payer MEDICARE, OTHER ==
[~2017-12-05] VITALS: Ht 160 cm; Wt 63.5 kg
[~2017-12-05 17:03] MED LIST changes: +ASPI325T33 PO; +ATEN25TA PO; -ATEN50TA7 PO; -CYCL1TAB29 PO; -HYDR-3516 PO; -HYDR-3533 PO; -NAPR500T PO; -OMEP20TA PO; +OMEP20TA93 PO; -ULTR50TA5 PO
[2017-12-05 17:23] VITALS: BP 118/67; PULSE 76; RESP 16; TEMP 98.1; O2SAT 99
[2017-12-05 19:33] VITALS: BP 171/70; PULSE 77; RESP 18; TEMP 97.5; O2SAT 99
[2017-12-05] MEDS ORDERED: HYDROmorphone HCL 2 MG TAB PO ONE (19:45)
--- NOTE | 2017-12-05 19:56 | PD ---
HPI . Back pain Chief Complaint: Pain: Acute or Chronic Time Seen by Provider: 19:27 Travel History International Travel<30 days: No Contact w/Intl Traveler<30days: No Traveled to known affect area: No History of Present Illness HPI Patient is an 87-year-old female who presents with pain due to complications of a thoracic spinal fracture. Recently in August she was seen by neurosurgery for a lumbar fracture and a possible chondroplasty. However no surgery was performed due to the patient having a stroke around the same time. The patient entered rehab for 3 months. In October she revisited her neurosurgeon where was seen that the original lumbar fracture was 80% healed. 2 weeks went by where she reported being feeling fine. Last Sunday she reported feeling back pain described as spasms. After getting some imaging studies she discovered that she had now a thoracic fracture. Prescribed pain meds from her new primary failed to offer relief. Pain is located to the lower/mid back. The pain comes and goes and is described as a sharp or breath taking pain. Patient denies any aggravating or relieving factors. Patient denies any saddle anesthesia and denies any incontinence. Also of note, the patient reports never having a DEXA scan. PFSH Past Medical History Arthritis: No Asthma: No Heart Rhythm Problems: No Cancer: No Cardiovascular Problems: No High Cholesterol: Yes Chest Pain: No Congestive Heart Failure: No COPD: No Cerebrovascular Accident: No Endocrine: No Gastrointestinal Disorders: Yes GERD: Yes (GERD) Genitourinary: No Hypertension: Yes Immune Disorder: No Musculoskeletal: No Neurologic: No Psychiatric: No Reproductive: No Respiratory: No Migraines: No Seizures: No Ulcer: Yes (asymptomatic) Tetanus Vaccination: < 5 Years Influenza Vaccination: Yes ?: Not Menopausal: Yes Past Surgical History Abdominal Surgery: No Cardiac Surgery: No Ear Surgery: No Endocrine Surgery: No Eye Surgery: No Genitourinary Surgery: No Gynecologic Surgery: No Joint Replacement: Yes (bilateral knee) Oral Surgery: No Thoracic Surgery: No Other Surgery: Yes Social History Alcohol Use: Yes (OCASSIONALY) Tobacco Use: No Substance Use: No Allergies-Medications (Allergen,Severity, Reaction): Coded Allergies: No Known Allergies (Verified Allergy, Unknown, 08/07/17) Reported Meds & Prescriptions Reported Meds & Active Scripts Active Atenolol 25 Mg Tab 25 Mg PO Q12HR Aspirin EC (Aspirin) 325 Mg Tabdr 325 Mg PO DAILY Walker/Adult/Folding (Device) 1 Mis Mis Ea .ROUTE DIRECTED Lidocaine Patch 12 HR (Lidocaine) 5 % Patch 1 Patch TOPICAL DAILY PRN Remove patch after 12 hours Reported Vitamin A09-Kkxzq Acid (Cobalamine Combinations) 500-400 Mcg Tab 1 Tab PO DAILY Iron (Ferrous Sulfate) 325 Mg Cap 325 Mg PO DAILY Calcium 500 +D (Calcium Carbonate-Cholecalciferol) 500-400 Mg-Unit Tab 1 Tab PO DAILY Fish Oil + D3 (Fish Oil-Cholecalciferol) 1,200-1,000 Mg-Unit Cap 1 Cap PO DAILY Omeprazole 20 Mg Tab 20 Mg PO DAILY Simvastatin 20 Mg Tab 20 Mg PO DAILY Amlodipine (Amlodipine Besylate) 5 Mg Tab 5 Mg PO DAILY Review of Systems Except as stated in HPI: all other systems reviewed are Neg Eyes: Positive: Visual changes (Decreased vision since stroke.) Genitourinary: No: Incontinence, Pelvic Pain Neurologic: No: Weakness, Paresthesia, Incontinence Physical Exam Narrative GENERAL: Pleasant in no acute distress. SKIN: warm/dry. HEAD: Normocephalic. EYES: Pupils equal and round. No scleral icterus. No injection or drainage. ENT: No nasal bleeding or discharge. Mucous membranes pink and moist. NECK: Trachea midline. Full range of motion without pain. CARDIOVASCULAR: Regular rate and rhythm. RESPIRATORY: No accessory muscle use. Clear to auscultation. Breath sounds equal bilaterally. GASTROINTESTINAL: Abdomen soft. Nontender. Bowel sounds present. Nondistended. MUSCULOSKELETAL: No obvious deformities. Tenderness elicited in the lower thoracic spine. NEUROLOGICAL: Awake and alert. No obvious cranial nerve deficits. Motor grossly within normal limits. Normal speech. PSYCHIATRIC: Appropriate mood and affect; insight and judgment normal. Data Data Last Documented VS Vital Signs Date Time Temp Pulse Resp B/P (MAP) Pulse Ox O2 Delivery O2 Flow Rate FiO2 12/05/17 21:27 88 18 153/65 (94) 99 Room Air 12/05/17 19:33 97.5 Orders Orders Hydromorphone (Dilaudid) (12/05/17 19:45) Hydromorphone Pf Inj (Dilaudid Pf Inj) (12/05/17 21:15) Lorazepam Inj (Ativan Inj) (12/05/17 21:15) Admit Order (Ed Use Only) (12/05/17 22:45) [facility] Medical Decision Making Medical Screen Exam Complete: Yes Emergency Medical Condition: Yes Differential Diagnosis Differential diagnosis includes but is not limited to muscular low back pain, DDD, spinal stenosis, epidural abscess, sciatica, kidney infection or stone. Narrative Course Patient presents with back pain related to a compression fracture. She does not have any concerning signs or symptoms. I will give her a dose of oral Dilaudid. If this is helpful, I will give her a small prescription for Dilaudid. The patient had minimal improvement in her pain with Dilaudid 2 mg. She was unable to get up to go to the bathroom secondary to pain following Dilaudid. She was then given Dilaudid 1 mg IM along with Ativan 1 mg IM. Her pain is now controlled but she is extremely somnolent. She lives at home alone. I will request observation admission. She would probably benefit from meeting with a physical therapist. Physician Communication Physician Communication Dr. Gil Diagnosis Primary Impression: T11 vertebral fracture Qualified Codes: S22.089A - Unspecified fracture of t11-T12 vertebra, initial encounter for closed fracture Admitting Information Admitting Physician Requests: Observation Patient Instructions: General Instructions Disposition: 01 DISCHARGE HOME Condition: Stable Zonia Harrison MD Dec 05, 2017 19:56
[2017-12-05] MEDS ORDERED: HYDROmorphone HCL PF 2 MG/ML VIAL IM ONE (21:15)
[2017-12-05] MEDS ORDERED: LORazepam 2 MG/ML VIAL IM ONE (21:15)
[2017-12-05 21:27] VITALS: BP 153/65; PULSE 88; RESP 18; O2SAT 99
--- NOTE | 2017-12-05 23:34 | HHI.HP ---
[facility] Service Family Medicine Primary Care Physician Kyle Cannon MD Admission Diagnosis T11 compression fx Diagnoses: International Travel<30 Days: No Contact w/Intl Traveler<30days: No Known Affected Area: No History of Present Illness Patient is a 87-year-old female with past history of stroke, lumbar fracture, thoracic fracture presenting today for intractable back pain. At the time of examination the patient was responsive to verbal stimuli however would quickly fall sleep and could not answer complex questions. The patient's niece, Maura Matos, was present and provided significant amount of the subjective history in addition to chart review and communication with the ED physician. It is reported that the patient was seen in August by neurosurgery for lumbar fracture and was going to have a chondroplasty, however she was unable to do so at that time due to a stroke which occurred at that point. Following the stroke she was unable to have chondroplasty because "she was labeled high risk." She was then a patient at the [facility], and was sent home approximate 3 weeks ago. She began to have back pain and establish care with a new primary care physician on Sunday due to change in insurance. She was referred to a neurosurgeon who got x-rays which demonstrated a thoracic fracture. She was prescribed 50 mg tramadol which "did not touch the pain." The tramadol was increased to 100 mg and Tylenol with codeine was added as well as a "muscle relaxer" all of which did not relieve the pain. She was seen by a visiting nurse on the day of admission. Her pain was so significant that she was unable to get out of her chair. The visiting nurse recommended she go to the emergency room. Typically she walks assisted with a walker. Is reported that while she was in the ED she was lucid and able to speak clearly and concisely. She was given Dilaudid 2 mg by mouth, to minimal effect, then subsequently given Dilaudid 2 mg IM with an additional Ativan 2 mg IM. Following the administration she became somnolent and interacted as stated above. Other complaints voiced by the niece at this time are that the patient has been constipated for several days and she believes she has lost approximate 40 pound since her stroke. She believes that her aunt is eating well however her aunt lives alone and she only occasionally sees her. No other complaints today. 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 Past Surgical History Knee surgery Allergies: Coded Allergies: No Known Allergies (Verified Allergy, Unknown, 08/07/17) Family History Denies family history of Cancer Social History EtOH: drinks a glass a day Tobacco: "smoked some tabacco a long time ago" Drugs: Denies Physical Exam Vital Signs Vital Signs Date Time Temp Pulse Resp B/P (MAP) Pulse Ox O2 Delivery O2 Flow Rate FiO2 12/05/17 21:27 88 18 153/65 (94) 99 Room Air 12/05/17 19:33 97.5 77 18 171/70 (103) 99 Room Air 12/05/17 17:23 98.1 76 16 118/67 (84) 99 Room Air Physical Exam GENERAL: This is a well-nourished, well-developed patient, laying in bed sleeping, plastic spinal support worn SKIN: No rashes, ecchymoses or lesions. Cool and dry. HEAD: Atraumatic. Normocephalic. No temporal or scalp tenderness. EYES: Pupils equal round and reactive. No scleral icterus. No injection or drainage. ENT: Nose without bleeding, purulent drainage or septal hematoma. Throat without erythema, tonsillar hypertrophy or exudate. Uvula midline. Airway patent. NECK: Trachea midline. No JVD or lymphadenopathy. Supple, nontender, no meningeal signs. CARDIOVASCULAR: Regular rate and rhythm without gallops, or rubs. 3/6 systolic murmur. RESPIRATORY: Clear to auscultation. Breath sounds equal bilaterally. No wheezes , rales, or rhonchi. GASTROINTESTINAL: Abdomen soft, non-tender, nondistended. No hepato-splenomegaly , or palpable masses. No guarding. MUSCULOSKELETAL: Extremities without clubbing, cyanosis, or edema. No joint tenderness, effusion, or edema noted. No calf tenderness. NEUROLOGICAL: Somnolent Caprini VTE Risk Assessment Caprini VTE Risk Assessment: Mod/High Risk (score >= 2) Assessment and Plan Assessment and Plan 87-year-old female with past history of lumbar and thoracic fracture who presented for intractable back pain. Patient became somnolent following administration of 2 mg by mouth dilated, 2 mg IM Dilaudid, 2 mg IM Ativan. No acute signs of respiratory distress. Problem List: (1) Altered mental status ICD Codes: R41.82 - Altered mental status, unspecified Plan: Patient with acute altered mental status following administration of 2 mg by mouth Dilaudid, 2 mg IM Dilaudid, 2 mg IM Ativan. Patient was lucid prior to administration. No acute respiratory depression, no facial droop. - follow up CBC, BMP, acetaminophen level - Likely reaction to pain medication -Continue to monitor patient's neurological status (2) T11 vertebral fracture ICD Codes: S22.089A - Unspecified fracture of T11-T12 vertebra, initial encounter for closed fracture Status: Acute Plan: Initially presented for intractable back pain secondary to T11 fracture. -Ibuprofen 400 mg by mouth every 6 hours as needed pain 1-2 -Roxicodone 5 mg by mouth every 4 hours as needed pain 3-5 -Roxicodone 10 mg by mouth every 4 hours as needed pain 6-10 -Dilaudid 0.5 IV every 3 hours for breakthrough pain -Narcan when necessary for respiratory depression (3) Hypertension ICD Codes: I10 - Essential (primary) hypertension Status: Chronic Plan: History of hypertension. -Continue home medications -atenolol 25 mg twice a day -Amlodipine 5 mg daily (4) Hyperlipidemia ICD Codes: E78.5 - Hyperlipidemia, unspecified Plan: History of hyperlipidemia -Continue home medications -Simvastatin 20 mg daily (5) FEN Problem Qualifiers (1) T11 vertebral fracture: Qualified Codes: S22.089A - Unspecified fracture of t11-T12 vertebra, initial encounter for closed fracture Song Marshall MD R1 Dec 05, 2017 23:34
[2017-12-06] VITALS (7 sets, daily range): BP systolic 99–155; BP diastolic 52–76; PULSE 71–91; RESP 16–20; TEMP 97.8–98.9; O2SAT 94–100
[2017-12-06] MEDS ORDERED: ACETAMINOPHEN 325 MG TAB PO PRN (00:15)
[2017-12-06] MEDS ORDERED: BISACODYL 10 MG SUPP RECTAL PRN (00:15)
[2017-12-06] MEDS ORDERED: ONDANSETRON HCL 4 MG/2 ML VIAL IVP PRN (00:15)
[2017-12-06] MEDS ORDERED: MAGNESIUM HYDROXIDE SUSP 30 ML CUP PO PRN (00:15)
[2017-12-06] MEDS ORDERED: LACTULOSE SYRUP 20 GM/30 ML CUP PO PRN (00:15)
[2017-12-06] MEDS ORDERED: SODIUM CHLORIDE 0.9% FLUSH 10 ML FLUSH IV FLUSH PRN (00:15)
[2017-12-06] MEDS: HEPARIN SODIUM - SQ 10,000 UNITS/ML VIAL SQ SCH ×3 (00:15→18:15)
[2017-12-06] MEDS ORDERED: NALOXONE HCL 0.4 MG/ML AMP IV PUSH PRN ×2 (00:15→04:30)
[2017-12-06] MEDS ORDERED: SENNOSIDES 8.6 MG TAB PO PRN (00:15)
[2017-12-06] MEDS ORDERED: IBUPROFEN 400 MG TAB PO PRN (04:30)
[2017-12-06] MEDS ORDERED: LIDOCAINE HCL 5% PATCH T-DERMAL PRN (04:30)
[2017-12-06] MEDS: amLODIPine BESYLATE 5 MG TAB PO SCH (09:00)
[2017-12-06] MEDS ORDERED: OXYC-392 PO (09:28)
[2017-12-06] MEDS: SODIUM CHLORIDE 0.9% FLUSH 10 ML FLUSH IV FLUSH SCH ×2 (10:41→21:21)
[2017-12-06] MEDS: ASPIRIN EC 325 MG TABEC PO SCH (10:41)
[2017-12-06] MEDS: ATENOLOL 25 MG TAB PO SCH ×2 (10:41→21:21)
[2017-12-06] MEDS: FERROUS SULFATE 325 MG (65 MG ELEMENTAL IRON) TAB PO SCH (10:42)
[2017-12-06] MEDS: DOCUSATE SODIUM 50 MG/SENNA 8.6 MG TAB PO SCH ×2 (10:42→20:43)
[2017-12-06] MEDS: PRAVASTATIN SOD 40 MG TAB PO SCH (10:42)
--- NOTE | 2017-12-06 10:48 | HHI.DCPOC ---
Discharge Care Plan Diagnosis: (1) Intractable low back pain Goals to Promote Your Health * To prevent worsening of your condition and complications * To maintain your health at the optimal level Directions to Meet Your Goals Take your medications as prescribed Follow your dietary instruction Follow activity as directed Keep your appointments as scheduled Take your immunizations and boosters as scheduled If your symptoms worsen call your PCP, if no PCP go to Urgent Care Center or Emergency Room Smoking is Dangerous to Your Health. Avoid second hand smoke Call the 24-hour hour crisis hotline for domestic abuse at Sari Villa MD, R3 Dec 06, 2017 10:48
--- NOTE | 2017-12-06 14:48 | HHI.FPPN ---
Subjective Remarks Kierra Lau is an 87yo lady with h/o known lumbar and thoracic compression fractures admitted for intractable back pain and somnolence following administration of pain medication. She has a known lumbar compression fracture diagnosed 08/2017, which was determined to be nonoperable due to stroke occurring after diagnosis. Recent x-rays last week demonstrated an addition fracture, in thoracic spine. She was prescribed ultram, tylenol with codeine, and a muscle relaxer, which did not help her pain. She was brought to the ER due to worsening pain, where she received oral dilaudid, IM dilaudid, and IM ativan. For further details, please see resident H&P. This morning, she is more awake. She reports pain is better and is now "soft" and is located in lower back. She is wearing her TLSO brace, which she resumed wearing on her own (not on recommendation by physician). This morning, she refused labs. ROS: + back pain (improved). No numbness, no tingling. All other systems reviewed are negative. PMH/PSxH/SocHx/FamHx: Per resident H&P. Significant for: thoracic and lumbar compression fractures; stroke, HTN, hyperlipidemia, glaucoma, deaf in left ear. H/O knee surgery. Denies family history of cancer. Was at [facility] until recently, when discharged to home 3 weeks ago. She drinks 1 glass of alcohol per day. Remote tobacco abuse. No recreational drug use. Objective Vitals Vital Signs Date Time Temp Pulse Resp B/P (MAP) Pulse Ox O2 Delivery O2 Flow Rate FiO2 12/06/17 12:25 98.2 79 18 140/62 (88) 94 12/06/17 08:10 97.8 90 20 115/57 (76) 96 12/06/17 05:03 91 18 99/52 (68) 99 12/06/17 00:06 76 16 155/76 (102) 97 Room Air 12/05/17 21:27 88 18 153/65 (94) 99 Room Air 12/05/17 19:33 97.5 77 18 171/70 (103) 99 Room Air 12/05/17 17:23 98.1 76 16 118/67 (84) 99 Room Air Objective Remarks GENERAL: in NAD, no resp distress, nontoxic. Lying comfortably in bed, wearing TLSO brace. HEENT: NCAT, EOMI, no scleral icterus, no conjunctival injection. Hard of hearing. MMM. NECK: Supple, no meningeal signs. CV: RRR, S1 S2. 2/6 systolic murmur. CHEST/PULM: CTAB, no crackles, no wheezes ABD/GI: +BS, soft, nontender, nondistended EXT: 2+ DP pulses. No edema. No calf tenderness. NEURO: Grossly nonfocal. Awake, alert. Able to wiggle toes. Normal muscle tone. SKIN: No rashes, no jaundice PSYCH: Mood and affect are appropriate. Does not appear to respond to internal stimuli. A/P Assessment and Plan 87-year-old female with past history of lumbar and thoracic fracture who presented for intractable back pain. Patient became somnolent following administration of 2 mg by mouth dilated, 2 mg IM Dilaudid, 2 mg IM Ativan, but is more awake and alert this morning. Discharge Planning Anticipate discharge today. Attending Attestation Patient seen, examined, and discussed with resident team. Problem List: (1) Altered mental status ICD Codes: R41.82 - Altered mental status, unspecified Status: Resolved Plan: Secondary to administration of dilaudid and ativan. Now resolved. Pt refused labs to further evaluate. (2) T11 vertebral fracture ICD Codes: S22.089A - Unspecified fracture of T11-T12 vertebra, initial encounter for closed fracture Status: Acute Plan: Initially presented for intractable back pain secondary to T11 fracture. Back pain improved. -Ibuprofen 400 mg by mouth every 6 hours as needed pain 1-2 -Roxicodone 5 mg by mouth every 4 hours as needed pain 3-5 -Roxicodone 10 mg by mouth every 4 hours as needed pain 6-10 -Dilaudid 0.5 IV every 3 hours for breakthrough pain -Narcan when necessary for respiratory depression (3) Hypertension ICD Codes: I10 - Essential (primary) hypertension Status: Chronic Plan: History of hypertension. -Continue home medications. -atenolol 25 mg twice a day -Amlodipine 5 mg daily (4) Hyperlipidemia ICD Codes: E78.5 - Hyperlipidemia, unspecified Status: Chronic Plan: -Continue home medications -Simvastatin 20 mg daily. Problem Qualifiers (1) T11 vertebral fracture: Qualified Codes: S22.089D - Unspecified fracture of t11-T12 vertebra, subsequent encounter for fracture with routine healing (2) Hypertension: Qualified Codes: I10 - Essential (primary) hypertension (3) Hyperlipidemia: Qualified Codes: E78.5 - Hyperlipidemia, unspecified Marisela Loco MD Dec 06, 2017 14:48
[2017-12-06 21:49] LABS: AST (GOT) 23 U/L (15-37); BICARBONATE 32.3 MEQ/L (21.0-32.0); BLOOD UREA NITROGEN 14 MG/DL (7-18); CALCIUM 8.9 MG/DL (8.5-10.1); CHLORIDE 95 MEQ/L (98-107); CREATININE 0.69 MG/DL (0.50-1.00); GLOMERULAR FILTRATION RATE 80 ML/MIN (>89); GLUCOSE,RANDOM 119 MG/DL (74-106); SODIUM (NA) 134 MEQ/L (136-145)
[2017-12-06 21:50] LABS: ALT (GPT) 20 U/L (10-53)
[2017-12-06 21:52] LABS: ALKALINE PHOSPHATASE 73 U/L (45-117); TOTAL BILIRUBIN ADULT 0.3 MG/DL (0.2-1.0); TOTAL PROTEIN 6.9 GM/DL (6.4-8.2)
[2017-12-06 22:17] LABS: ACETAMINOPHEN LESS THAN 2.0 MCG/ML (10.0-30.0)
[2017-12-07] VITALS (15 sets, daily range): BP systolic 121–141; BP diastolic 56–73; PULSE 69–91; RESP 16–20; TEMP 97.8–99.3; O2SAT 95–100
[2017-12-07] MEDS: HEPARIN SODIUM - SQ 10,000 UNITS/ML VIAL SQ SCH ×2 (00:25→08:15)
[2017-12-07 04:18] LABS: AUTOMATED NEUTROPHIL # 4.8 TH/MM3 (1.8-7.7); BASOPHIL % 0.2 % (0.0-2.0); EOSINOPHIL % 0.3 % (0.0-4.0); LYMPH % 18.1 % (9.0-44.0); MEAN CELL VOLUME 85.5 FL (80.0-100.0); MEAN CORPUSCULAR HEMOGLOBIN 29.4 PG (27.0-34.0); MEAN CORPUSCULAR HGB CONC 34.3 % (32.0-36.0); MEAN PLATELET VOLUME 9.3 FL (7.0-11.0); MONO % 39.2 % (0.0-8.0); MONOCYTE # 4.4 TH/MM3 (0-0.9); NEUT % 42.2 % (16.0-70.0); PLATELET COUNT 197 TH/MM3 (150-450); RED CELL DISTRIBUTION WIDTH 14.5 % (11.6-17.2); WHITE BLOOD COUNT 11.3 TH/MM3 (4.0-11.0)
[2017-12-07 04:32] LABS: HEMOGLOBIN 5.6 GM/DL (11.6-15.3)
[2017-12-07 04:33] LABS: HEMATOCRIT 16.2 % (35.0-46.0)
[2017-12-07] MEDS ORDERED: SODIUM CHLOR 0.9% 250 ML INJ 250 ML IV ONE (04:45)
[2017-12-07 05:12] LABS: % SATURATION IRON PROFILE 4.3 % (20-50); IRON (FE) 11 MCG/DL (50-170); TOTAL IRON BINDING CAPACITY 253 MCG/DL (250-450)
[2017-12-07 05:15] LABS: FERRITIN 488 NG/ML (8-252)
[2017-12-07 06:18] LABS: RETIC # 73.5 MIL/L (20.0-150.0); RETIC % 3.9 % (0.4-3.0)
[2017-12-07 07:47] LABS: BILIRUBIN, URINE NEG (NEG); BLOOD, URINE NEG (NEG); GLUCOSE,URINE NEG (NEG); KETONE, URINE NEG (NEG); MUCUS URINE FEW /lpf (OCC); NITRITE,URINE NEG (NEG); PH, URINE 6.5 (5.0-8.5); URINE COLOR YELLOW (YELLW/STRAW); URINE LEUKOCYTE ESTERASE NEG (NEG)
[2017-12-07] MEDS: ATENOLOL 25 MG TAB PO SCH ×2 (08:54→21:32)
[2017-12-07] MEDS: FERROUS SULFATE 325 MG (65 MG ELEMENTAL IRON) TAB PO SCH (08:55)
[2017-12-07] MEDS: ASPIRIN EC 325 MG TABEC PO SCH (08:55)
[2017-12-07] MEDS: DOCUSATE SODIUM 50 MG/SENNA 8.6 MG TAB PO SCH (08:55)
[2017-12-07] MEDS: SODIUM CHLORIDE 0.9% FLUSH 10 ML FLUSH IV FLUSH SCH ×2 (08:56→21:35)
[2017-12-07] MEDS: amLODIPine BESYLATE 5 MG TAB PO SCH (08:56)
[2017-12-07] MEDS: PRAVASTATIN SOD 40 MG TAB PO SCH (08:56)
[2017-12-07 09:45] LABS: LYMPHOCYTES 28 % (9-44); MONOCYTES 22 % (0-8); NEUTROPHIL # MANUAL DIFF 5.4 TH/MM3 (1.8-7.7); POLYS (SEG NEUTROPHILS) 48 % (16-70)
[2017-12-07 09:46] LABS: OVALOCYTES 1+ (NORMAL)
[2017-12-07] MEDS: HYDROmorphone HCL PF 2 MG/ML VIAL IV PUSH PRN ×2 (10:56→18:10)
[2017-12-07] MEDS: MAGNESIUM HYDROXIDE SUSP 30 ML CUP PO SCH (11:45)
[2017-12-07] MEDS ORDERED: POTASSIUM CHLORIDE 10 MEQ CONTROLLED RELEASE TAB PO ONE (11:45)
--- NOTE | 2017-12-07 11:51 | HHI.FPPN ---
Subjective Remarks Patient seen and examined bedside this morning. Pt seems to be more alert and talkative than previous exams. She is on her second unit of blood. She denies any shortness of breath or dizziness. She states she has not noticed any shortness of breath or dizziness with ambulation over the last few weeks. She states her back pain has mildly improved. She denies any CP/SOB/dizziness. No fever/chills. (Sonia Gil MD R2) Objective Vitals Vital Signs Date Time Temp Pulse Resp B/P (MAP) Pulse Ox O2 Delivery O2 Flow Rate FiO2 12/07/17 10:50 78 18 134/72 12/07/17 10:32 97.8 72 18 121/60 99 12/07/17 10:17 18 12/07/17 08:53 73 18 135/59 12/07/17 08:52 73 135/59 12/07/17 07:54 98.7 77 18 136/60 100 12/07/17 07:28 99.3 74 18 125/58 100 12/07/17 07:05 98.7 74 18 126/58 97 12/07/17 04:20 98.2 84 16 124/60 (81) 99 12/07/17 00:04 98.4 91 19 131/60 (83) 99 12/06/17 21:17 71 100 12/06/17 21:07 98.9 87 16 129/57 (81) 12/06/17 16:36 98.3 81 18 140/65 (90) 94 12/06/17 12:25 98.2 79 18 140/62 (88) 94 I/O 12/06/17 12/06/17 12/06/17 12/07/17 12/07/17 12/07/17 07:00 15:00 23:00 07:00 15:00 23:00 Intake Total 750 ml 420 ml Balance 750 ml 420 ml Intake Oral 750 ml Packed Cells 400 ml Blood Product IV Normal Saline Flush 20 ml # Voids 2 (Sonia Gil MD R2) Result Diagram: 12/07/17 0604 12/06/172104 Objective Remarks GENERAL: in NAD, no resp distress, nontoxic. Lying comfortably in bed, wearing TLSO brace. HEENT: NCAT, EOMI, no scleral icterus, no conjunctival injection. Hard of hearing. MMM. NECK: Supple, no meningeal signs. CV: RRR, S1 S2. 2/6 systolic murmur. CHEST/PULM: CTAB, no crackles, no wheezes ABD/GI: +BS, soft, nontender, nondistended EXT: 2+ DP pulses. No edema. No calf tenderness. NEURO: Grossly nonfocal. Awake, alert. Able to wiggle toes. Normal muscle tone. SKIN: No rashes, no jaundice . No hematomas PSYCH: Mood and affect are appropriate. Does not appear to respond to internal stimuli. (Sonia Gil MD R2) A/P Assessment and Plan 87-year-old female with past history of lumbar and thoracic fracture who presented for intractable back pain. Patient became somnolent following administration of 2 mg by mouth dilated, 2 mg IM Dilaudid, 2 mg IM Ativan, but is more awake and alert this morning. Found to have hemoglobin of 5.6, undergoing transfusion Discharge Planning Anticipate discharge to SNF on Sunday (Sonia Gil MD R2) Attending Attestation Patient seen and examined, discussed with Dr. Gil. I agree with assessment and management as documented and discussed with me. The patient has been seen and examined. The chart and all resident notes have been reviewed. I agree that inpatient care is appropriate and that a two midnight stay is expected for the reasons documented in the resident history and physical. I have discussed this with the resident and certify the resident s order for inpatient admission. Kierra Lau is an 87yo lady initially admitted for intractable back pain after suffering a T11 fracture. Overnight, labs resulted with a severely low hemoglobin - 5.6. Pt was subsequently admitted to inpatient status. She is being transfused 2U PRBCs this AM. No dizziness, no SOB, no melena, no hematochezia. ROS: + back pain (improved). No numbness, no tingling. As above. All other systems reviewed are negative. PMH/PSxH/SocHx/FamHx: Per resident H&P. Significant for: thoracic and lumbar compression fractures; stroke, HTN, hyperlipidemia, glaucoma, deaf in left ear. H/O knee surgery. Denies family history of cancer. Was at [facility] until recently, when discharged to home 3 weeks ago. She believes she will need more help than she is able to provide herself at home. She drinks 1 glass of alcohol per day. Remote tobacco abuse. No recreational drug use. (Marisela Loco MD) Problem List: (1) T11 vertebral fracture ICD Codes: S22.089A - Unspecified fracture of T11-T12 vertebra, initial encounter for closed fracture Status: Acute Plan: Initially presented for intractable back pain secondary to T11 fracture. Back pain improved. -Ibuprofen 400 mg by mouth every 6 hours as needed pain 1-2 -Roxicodone 5 mg by mouth every 4 hours as needed pain 3-5 -Roxicodone 10 mg by mouth every 4 hours as needed pain 6-10 -Dilaudid 0.5 IV every 3 hours for breakthrough pain -Narcan when necessary for respiratory depression (2) Anemia ICD Codes: D64.9 - Anemia, unspecified Status: Chronic Plan: (12/07/17) Hb: 5.6 Baseline (08/21) Hb: 8.0 Acute on chronic anemia Transfuse 2 U PRBCs f/u post-transfusion CBC Continue daily iron supplement Add daily vitamin C for iron absorption f/u HCT Caution with constipation and Fe supplements Add scheduled Colace Add Milk of Mag Will add dulcolax suppository tomorrow if no BM (3) Altered mental status ICD Codes: R41.82 - Altered mental status, unspecified Status: Resolved Plan: Secondary to administration of dilaudid and ativan. Now resolved. Possibly secondary to acute on chronic anemia Continue conservative pain control See plan under anemia (4) Hypertension ICD Codes: I10 - Essential (primary) hypertension Status: Chronic Plan: History of hypertension. -Continue home medications. -atenolol 25 mg twice a day -Amlodipine 5 mg daily (5) Hyperlipidemia ICD Codes: E78.5 - Hyperlipidemia, unspecified Status: Chronic Plan: -Continue home medications -Simvastatin 20 mg daily. (6) fen/ppx Status: Chronic Plan: Fluids: By mouth fluids Electrolytes: Potassium low today, replete with 40 mEq stat, follow-up BMP tomorrow Nutrition: Regular diet GI prophylaxis: Not indicated DVT prophylaxis: Refusing heparin today, will hold while we r/o GI bleed (Sonia Gil MD R2) Problem Qualifiers (1) T11 vertebral fracture: Qualified Codes: S22.089D - Unspecified fracture of t11-T12 vertebra, subsequent encounter for fracture with routine healing (2) Hypertension: Qualified Codes: I10 - Essential (primary) hypertension (3) Hyperlipidemia: Qualified Codes: E78.5 - Hyperlipidemia, unspecified Sonia Gil MD R2 Dec 07, 2017 11:51 Marisela Loco MD Dec 07, 2017 14:53
[2017-12-07] MEDS: ASCORBIC ACID 500 MG TAB PO SCH (12:00)
[2017-12-07] MEDS: DOCUSATE SODIUM 100 MG CAP PO SCH ×2 (12:34→21:32)
[2017-12-07 14:29] LABS: HEMATOCRIT 23.4 % (35.0-46.0); HEMOGLOBIN 8.3 GM/DL (11.6-15.3)
[2017-12-08] VITALS: BP 135/77; PULSE 79; RESP 20; TEMP 97; O2SAT 97
[2017-12-08 04:00] VITALS: BP 106/77; PULSE 123; RESP 18; TEMP 97.5; O2SAT 97
[2017-12-08 05:59] LABS: HEMATOCRIT 24.5 % (35.0-46.0); HEMOGLOBIN 8.6 GM/DL (11.6-15.3); MEAN CELL VOLUME 87.4 FL (80.0-100.0); MEAN CORPUSCULAR HEMOGLOBIN 30.6 PG (27.0-34.0); PLATELET COUNT 192 TH/MM3 (150-450); RED CELL DISTRIBUTION WIDTH 14.3 % (11.6-17.2); WHITE BLOOD COUNT 10.1 TH/MM3 (4.0-11.0)
[2017-12-08 06:05] LABS: ALBUMIN 2.7 GM/DL (3.4-5.0); AST (GOT) 18 U/L (15-37); BICARBONATE 28.1 MEQ/L (21.0-32.0); BLOOD UREA NITROGEN 11 MG/DL (7-18); CALCIUM 8.4 MG/DL (8.5-10.1); CHLORIDE 98 MEQ/L (98-107); CREATININE 0.59 MG/DL (0.50-1.00); GLOMERULAR FILTRATION RATE 96 ML/MIN (>89); GLUCOSE,RANDOM 90 MG/DL (74-106); SODIUM (NA) 133 MEQ/L (136-145)
[2017-12-08 06:11] LABS: ALKALINE PHOSPHATASE 67 U/L (45-117); ALT (GPT) 20 U/L (10-53); TOTAL BILIRUBIN ADULT 0.7 MG/DL (0.2-1.0); TOTAL PROTEIN 6.2 GM/DL (6.4-8.2)
[2017-12-08 07:06] LABS: BANDS 2 % (0-6); LYMPHOCYTES 28 % (9-44); MONOCYTES 33 % (0-8); NEUTROPHIL # MANUAL DIFF 3.9 TH/MM3 (1.8-7.7); POLYS (SEG NEUTROPHILS) 37 % (16-70)
[2017-12-08 07:07] LABS: OVALOCYTES 1+ (NORMAL)
[2017-12-08 08:00] VITALS: BP 137/63; PULSE 74; RESP 19; TEMP 97.8; O2SAT 96
[2017-12-08] MEDS: ASPIRIN EC 325 MG TABEC PO SCH (08:28)
[2017-12-08] MEDS: amLODIPine BESYLATE 5 MG TAB PO SCH (08:28)
[2017-12-08] MEDS: ASCORBIC ACID 500 MG TAB PO SCH (08:28)
[2017-12-08] MEDS: PRAVASTATIN SOD 40 MG TAB PO SCH (08:28)
[2017-12-08] MEDS: FERROUS SULFATE 325 MG (65 MG ELEMENTAL IRON) TAB PO SCH (08:28)
[2017-12-08] MEDS: DOCUSATE SODIUM 100 MG CAP PO SCH ×2 (08:29→21:00)
[2017-12-08] MEDS: MAGNESIUM HYDROXIDE SUSP 30 ML CUP PO SCH (08:29)
[2017-12-08] MEDS: SODIUM CHLORIDE 0.9% FLUSH 10 ML FLUSH IV FLUSH SCH ×2 (08:29→21:00)
[2017-12-08] MEDS: ATENOLOL 25 MG TAB PO SCH ×2 (08:29→21:00)
--- NOTE | 2017-12-08 10:25 | HHI.FPPN ---
Subjective Remarks Patient is without complaints. She feels back pain is controlled with current pain regimen. She denies nausea. She denies lightheadedness. Objective Vitals Vital Signs Date Time Temp Pulse Resp B/P (MAP) Pulse Ox O2 Delivery O2 Flow Rate FiO2 12/08/17 08:00 97.8 74 19 137/63 (87) 96 12/08/17 04:00 97.5 123 18 106/77 (87) 97 12/08/17 00:00 97.0 79 20 135/77 (96) 97 12/07/17 20:00 97.8 84 18 141/73 (95) 95 12/07/17 17:47 98.2 70 20 134/59 (84) 95 12/07/17 15:23 98.4 69 18 121/56 (77) 97 12/07/17 13:16 97.9 73 18 141/58 100 12/07/17 12:33 18 12/07/17 12:29 97.8 74 18 135/61 100 12/07/17 11:38 97.8 71 18 135/61 100 12/07/17 10:50 78 18 134/72 12/07/17 10:32 97.8 72 18 121/60 99 I/O 12/07/17 12/07/17 12/07/17 12/08/17 12/08/17 12/08/17 07:00 15:00 23:00 07:00 15:00 23:00 Intake Total 750 ml 825 ml Balance 750 ml 825 ml Intake Oral 750 ml Packed Cells 800 ml Blood Product IV Normal Saline Flush 25 ml # Voids 2 3 # Bowel Movements 3 Result Diagram: 12/08/17 0520 12/08/17 0520 Objective Remarks GENERAL: in NAD, no resp distress, nontoxic. Lying comfortably in bed. HEENT: NCAT, EOMI, no scleral icterus, no conjunctival injection. Hard of hearing. MMM. NECK: Supple, no meningeal signs. CV: RRR, S1 S2. 2/6 systolic murmur, unchanged. CHEST/PULM: CTAB, no crackles, no wheezes ABD/GI: +BS, soft, nontender, nondistended EXT: 2+ DP pulses. No edema. No calf tenderness. NEURO: Grossly nonfocal. Awake, alert. Able to wiggle toes. Normal muscle tone. SKIN: No rashes, no jaundice . No hematomas PSYCH: Mood and affect are appropriate. Does not appear to respond to internal stimuli. A/P Assessment and Plan 87-year-old female with past history of lumbar and thoracic fracture who presented for intractable back pain. During hospitalization, patient developed severe anemia, with hemoglobin 5.6, requiring 2U PRBCs. Discharge Planning Anticipate discharge to SNF on Sunday Attending Attestation Patient seen, examined, and discussed with Dr. Gilbert. Problem List: (1) T11 vertebral fracture ICD Codes: S22.089A - Unspecified fracture of T11-T12 vertebra, initial encounter for closed fracture Status: Acute Plan: Initially presented for intractable back pain secondary to T11 fracture. Back pain improved. -Ibuprofen 400 mg by mouth every 6 hours as needed pain 1-2 -Roxicodone 5 mg by mouth every 4 hours as needed pain 3-5 -Roxicodone 10 mg by mouth every 4 hours as needed pain 6-10 -Dilaudid 0.5 IV every 3 hours for breakthrough pain -Narcan when necessary for respiratory depression Continue work with PT. (2) Anemia ICD Codes: D64.9 - Anemia, unspecified Status: Chronic Plan: (12/07/17) Hb: 5.6 --> 8.3 (12/07/17 post transfusion) --> 8.6 (12/08/17) Baseline (08/21) Hb: 8.0 Acute on chronic anemia Transfused 2 U PRBCs on 12/07/17 Continue daily iron supplement Add daily vitamin C for iron absorption Hemoccult pending (3) Altered mental status ICD Codes: R41.82 - Altered mental status, unspecified Status: Resolved Plan: Secondary to administration of dilaudid and ativan. Now resolved. Possibly secondary to acute on chronic anemia. Continue conservative pain control See plan under anemia (4) Hypertension ICD Codes: I10 - Essential (primary) hypertension Status: Chronic Plan: History of hypertension. BP under good control. -Continue home medications. -atenolol 25 mg twice a day -Amlodipine 5 mg daily (5) Hyperlipidemia ICD Codes: E78.5 - Hyperlipidemia, unspecified Status: Chronic Plan: -Continue home medications. -Simvastatin 20 mg daily. (6) fen/ppx Status: Chronic Plan: Fluids: By mouth fluids Electrolytes: Potassium low today, replete with 40 mEq stat, follow-up BMP tomorrow Nutrition: Regular diet GI prophylaxis: Not indicated DVT prophylaxis: Heparin on hold until hemoccult resulted. Hemoglobin stable this AM, so GI bleed unlikely. SCDs Problem Qualifiers (1) T11 vertebral fracture: Qualified Codes: S22.089D - Unspecified fracture of t11-T12 vertebra, subsequent encounter for fracture with routine healing (2) Hypertension: Qualified Codes: I10 - Essential (primary) hypertension (3) Hyperlipidemia: Qualified Codes: E78.5 - Hyperlipidemia, unspecified Marisela Loco MD Dec 08, 2017 10:25
[2017-12-08 12:00] VITALS: BP 138/63; PULSE 68; RESP 19; TEMP 98.1; O2SAT 98
[2017-12-08 15:10] VITALS: BP 147/65; PULSE 79; RESP 18; TEMP 98.5; O2SAT 95
--- NOTE | 2017-12-08 15:52 | HHI.PR ---
Addendum to Inpatient Note Addendum Reason: Additional Documentation Additional Information S: Residents paged at 1500 about patient having 1 episode of dark brown emesis. Also complains of nausea and distended abdomen. Roughly 350 mL of dark brown, thin emesis. Niece is bedside who reports patient has not had a bowel movement in at least 4 days. O: VS: T 98.5, HR 79, RR 18, BP 147/65 O2 sat 95 Gen: Elderly woman resting in bed in no acute distress CV: Systolic murmur appreciated, regular rate and rhythm Resp: Clear to auscultation bilaterally Abd: Hyperactive bowel sounds, distended abdomen that is tender to palpation, no guarding. A/P 87-year-old female admitted initially for pain control following vertebral fractures, found to be anemic on on 12/07 with hemoglobin of 5.6 now with dark brown emesis suspicious for a GI bleed. Stat CBC, BMP Gastric pending H&H every 6 hours Abdominal flat and upright x-ray pending Patient made nothing by mouth, NG tube with suction ordered (chest x-ray following NG tube placement) GI consultation ordered Protonix 40 mg IV twice a day Seen and discussed with Dr. Underwood, discussed with Gilbert Mitchell MD R1 Dec 08, 2017 15:52
[2017-12-08] MEDS ORDERED: PANTOPRAZOLE SODIUM 40 MG VIAL IV PUSH SCH (16:00)
--- NOTE | 2017-12-08 16:12 | PD.CONS ---
HPI History of Present Illness This is a 87 year old with pmh of gastric ulcers, of stroke, lumbar fracture, thoracic fracture who presented to [facility] on 12/05/17 for intractable back pain. GI have been consulted for acute upper GI bleed. Reportedly patient had about 350ml of coffee ground emesis around 2 pm, prior to this episode, pt felt nauseated. Labs yesterday hgb 5.6, hasn't has bm for a weeks. Has some mild abd tenderness, and abd noted to be distended. NGT tube order in place and pending placement. Patient is s/p 2 units of blood, hgb is 8.6. Patient has been on ASA since the stroke, takes NSAIDs as needed but not on regular basis. EGD on 03/08/17gastritis, esophagitis- short segment of Dunn's, small hiatal hernia, bx benign. 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 Past Surgical History Knee surgery EGd/colonoscopy (Donna Johnson) Coded Allergies: No Known Allergies (Verified Allergy, Unknown, 08/07/17) Medications Current Medications Medications (Trade) Dose Ordered Sig/Nader Route Start Time Stop Time Status Last Admin (NS Flush) 2 ml UNSCH PRN IV FLUSH 12/06/17 00:15 (NS Flush) 2 ml BID IV FLUSH 12/06/17 09:00 12/08/17 08:29 (Tylenol) 650 mg Q4H PRN PO 12/06/17 00:15 (Zofran Inj) 4 mg Q6H PRN IVP 12/06/17 00:15 12/08/17 12:11 (Milk Of Magnesia Liq) 30 ml Q12H PRN PO 12/06/17 00:15 (Senokot) 17.2 mg Q12H PRN PO 12/06/17 00:15 12/06/17 12:21 (Dulcolax Supp) 10 mg DAILY PRN RECTAL 12/06/17 00:15 (Lactulose Liq) 30 ml DAILY PRN PO 12/06/17 00:15 (Norvasc) 5 mg DAILY PO 12/06/17 09:00 12/08/17 08:28 (Ecotrin Ec) 325 mg DAILY PO 12/06/17 09:00 12/08/17 08:28 (Tenormin) 25 mg Q12HR PO 12/06/17 09:00 12/08/17 08:29 (Lidoderm 5% Patch.12 Hr) 1 patch DAILY PRN T-DERMAL 12/06/17 04:30 (Ferrous Sulfate) 325 mg DAILY PO 12/06/17 09:00 12/08/17 08:28 (Pravachol) 40 mg DAILY PO 12/06/17 09:00 12/08/17 08:28 (Motrin) 400 mg Q6H PRN PO 12/06/17 04:30 (Roxicodone) 10 mg Q4H PRN PO 12/06/17 04:30 12/07/17 21:32 (Dilaudid Pf Inj) 0.5 mg Q3H PRN IV PUSH 12/06/17 04:30 12/07/17 18:10 (Roxicodone) 5 mg Q4H PRN PO 12/06/17 04:30 12/07/17 08:55 (Narcan Inj) 0.4 mg UNSCH PRN IV PUSH 12/06/17 04:30 (Colace) 100 mg BID PO 12/07/17 11:45 12/08/17 08:29 (Milk Of Magnesia Liq) 30 ml DAILY PO 12/07/17 11:45 12/08/17 08:29 (Vitamin C) 500 mg DAILY PO 12/07/17 12:00 12/08/17 08:28 (Protonix Inj) 40 mg Q12H IV PUSH 12/08/17 16:00 Family History Non contributory Social History EtOH: drinks a glass a day Tobacco: "smoked some tabacco a long time ago" Drugs: Denies (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,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) Review of Systems Constitutional: DENIES: Weight loss, Change in appetite Endocrine: DENIES: Polyuria Eyes: DENIES: Double Vision Ears, nose, mouth, throat: DENIES: Hoarseness Respiratory: DENIES: Shortness of breath Cardiovascular: DENIES: Lower Extremity Edema Gastrointestinal: COMPLAINS OF: Abdominal pain, Constipation, Nausea, Vomiting , Swelling of Abdomen, Hematemesis, DENIES: Black stools, Bloody stools, Diarrhea, Difficulty Swallowing, Anorexia, Odynophagia, Heartburn Genitourinary: DENIES: Hematuria Musculoskeletal: COMPLAINS OF: Back pain Integumentary: DENIES: Jaundice Hematologic/lymphatic: DENIES: Bruising Neurologic: DENIES: Abnormal gait Psychiatric: DENIES: Anxiety (Donna Johnson) GI Exam Vitals I&O Vital Signs Date Time Temp Pulse Resp B/P (MAP) Pulse Ox O2 Delivery O2 Flow Rate FiO2 12/08/17 15:10 98.5 79 18 147/65 (92) 95 12/08/17 12:00 98.1 68 19 138/63 (88) 98 12/08/17 08:00 97.8 74 19 137/63 (87) 96 12/08/17 04:00 97.5 123 18 106/77 (87) 97 12/08/17 00:00 97.0 79 20 135/77 (96) 97 12/07/17 20:00 97.8 84 18 141/73 (95) 95 12/07/17 17:47 98.2 70 20 134/59 (84) 95 I/O 12/07/17 12/07/17 12/07/17 12/08/17 12/08/17 12/08/17 07:00 15:00 23:00 07:00 15:00 23:00 Intake Total 750 ml 825 ml Output Total 350 ml Balance 750 ml 825 ml -350 ml Intake Oral 750 ml Packed Cells 800 ml Blood Product IV Normal Saline Flush 25 ml Output Emesis 350 ml # Voids 2 3 # Bowel Movements 3 Laboratory Test 12/08/17 05:20 White Blood Count 10.1 TH/MM3 Red Blood Count 2.80 MIL/MM3 Hemoglobin 8.6 GM/DL Hematocrit 24.5 % Mean Corpuscular Volume 87.4 FL Mean Corpuscular Hemoglobin 30.6 PG Mean Corpuscular Hemoglobin Concent 35.0 % Red Cell Distribution Width 14.3 % Platelet Count 192 TH/MM3 Mean Platelet Volume 9.0 FL CBC Comment AUTO DIFF Differential Total Cells Counted 100 Neutrophils % (Manual) 37 % Band Neutrophils % 2 % Lymphocytes % 28 % Monocytes % 33 % Neutrophils # (Manual) 3.9 TH/MM3 Differential Comment FINAL DIFF MANUAL Platelet Estimate NORMAL Platelet Morphology Comment NORMAL Ovalocytes 1+ Blood Urea Nitrogen 11 MG/DL Creatinine 0.59 MG/DL Random Glucose 90 MG/DL Total Protein 6.2 GM/DL Albumin 2.7 GM/DL Calcium Level 8.4 MG/DL Alkaline Phosphatase 67 U/L Aspartate Amino Transf (AST/SGOT) 18 U/L Alanine Aminotransferase (ALT/SGPT) 20 U/L Total Bilirubin 0.7 MG/DL Sodium Level 133 MEQ/L Potassium Level 3.9 MEQ/L Chloride Level 98 MEQ/L Carbon Dioxide Level 28.1 MEQ/L Anion Gap 7 MEQ/L Estimat Glomerular Filtration Rate 96 ML/MIN Physical Examination HEENT: normocephalic; atraumatic; no jaundice. Throat is clear. CHEST: Chest is clear to auscultation and percussion. CARDIAC: Regular rate and rhythm with no murmur gallop or rubs. ABDOMEN: Soft, distended, nontender; no hepatosplenomegaly; bowel sounds are present in all four quadrants. EXTREMITIES: No clubbing, cyanosis, or edema. SKIN: Normal; no rash; no jaundice. EVS TECH: No focal deficits; alert and oriented times three. (Donna Johnson) Assessment and Plan Plan - Acute upper GI bleed- hx of gastric ulcer in 2015, patient on ASA for stroke, NSAIDs as needed. 350 ml of coffee ground emesis reported at 2 pm abd distended, NGT ordered. EGD on 03/08/17gastritis, esophagitis- short segment of Dunn's, small hiatal hernia, bx benign. EGD/colonoscopy on 07/28/17 showed clean base ulcer in antrum, few small ulcers in gastric body in hiatal hernia , esophagitis, hiatal hernia, diverticulosis sigmoid, descending polyps diminutive in sigmoid cold bx with complete removal, internal and external hemorrhoids bx showed negative for celiac or H-pylori Dunn and benign polyps - Vertebral fracture per attending - HTN, Hyperlipemia per attending Plan: - NPO - NGT to [facility] - EGD tomorrow - Obtain consents - No NSAIDs - Monitor hh - Transfuse as needed - PPI drip - Notify GI for active bleed - Supportive care - Patient seen and examined by Dr. Gamino and myself and this note is written on his behalf. (Donna Johnson) Physician Comments Seen and examined with BIOPROCESSING MANUFACTURING TECHNICIAN, no active bleeding. Monitor H/H. Egd planned. No Nsaids. PPI. Thank you (Diana Nick MD) Donna Johnson Dec 08, 2017 16:12 Diana Nick MD Dec 09, 2017 10:23
[2017-12-08 16:46] LABS: AUTOMATED NEUTROPHIL # 6.7 TH/MM3 (1.8-7.7); BASOPHIL % 0.3 % (0.0-2.0); EOSINOPHIL % 0.4 % (0.0-4.0); HEMATOCRIT 29.3 % (35.0-46.0); LYMPH % 9.9 % (9.0-44.0); LYMPHOCYTE # 1.2 TH/MM3 (1.0-4.8); MEAN CELL VOLUME 88.5 FL (80.0-100.0); MEAN CORPUSCULAR HEMOGLOBIN 30.2 PG (27.0-34.0); MEAN CORPUSCULAR HGB CONC 34.1 % (32.0-36.0); MEAN PLATELET VOLUME 9.1 FL (7.0-11.0); MONO % 35.8 % (0.0-8.0); MONOCYTE # 4.5 TH/MM3 (0-0.9); NEUT % 53.6 % (16.0-70.0); PLATELET COUNT 247 TH/MM3 (150-450); RED BLOOD COUNT 3.31 MIL/MM3 (4.00-5.30); RED CELL DISTRIBUTION WIDTH 14.5 % (11.6-17.2); WHITE BLOOD COUNT 12.5 TH/MM3 (4.0-11.0)
[2017-12-08] MEDS ORDERED: PANTOPRAZOLE INJ 80 MG in SODIUM CHLORIDE 0.9% INJ 100 ML IV SCH (17:00)
[2017-12-08 17:08] LABS: BICARBONATE 30.8 MEQ/L (21.0-32.0); CALCIUM 8.8 MG/DL (8.5-10.1); CREATININE 0.68 MG/DL (0.50-1.00)
--- NOTE | 2017-12-08 17:54 | RADRPT ---
EXAM DATE/TIME: 12/08/2017 17:34 This report includes an Addendum and supersedes previous reports for this exam. [facility] COMPARISON: CHEST SINGLE AP, August 07, 2017, 20:21. INDICATIONS : NG tube placement. Congestion. MEDICAL HISTORY : None. SURGICAL HISTORY : None. ENCOUNTER: Subsequent ACUITY: 3 days PAIN SCORE: 6/10 LOCATION: Bilateral chest FINDINGS: The lungs are clear without infiltrate, nodule, or mass. There is no appreciable pleural effusion fo r technique. Heart and mediastinum are unremarkable. The tip of the NG tube is in the right lower lo be bronchus and needs to be withdrawn. CONCLUSION: The NG tube is in the right lower lobe bronchus and needs to be withdrawn. Dev Driscoll MD on December 08, 2017 at 17:49 Board Certified Radiologist. This report was verified electronically. ADDENDUM: Findings were discussed with Talia patient's nurse on 12/08/2017 at 17:55 hours. Dev Driscoll MD on December 08, 2017 at 18:03 Board Certified Radiologist. This report was verified electronically.
--- NOTE | 2017-12-08 18:11 | RADRPT ---
EXAM DATE/TIME: 12/08/2017 17:36 [facility] COMPARISON: No previous studies available for comparison. INDICATIONS : Distention. Bloating. Abdominal pain. MEDICAL HISTORY : None. SURGICAL HISTORY : None. ENCOUNTER: Initial ACUITY: 2 days PAIN SCORE: 7/10 LOCATION: Bilateral upper quadrant FINDINGS: The bowel gas is nonspecific without any signs of obstruction or free air. NG tube is present with ti p in right lower lobe bronchus. CONCLUSION: Tip of the NG tube is in the right lower lobe bronchus and needs to be withdrawn. Findings reported t leo Melgar the patient's nurse on 12/08/2017 17:55 hours. Dev Driscoll MD on December 08, 2017 at 18:08 Board Certified Radiologist. This report was verified electronically.
[2017-12-08] MEDS: SODIUM CHLOR 0.9% 1000 ML INJ 1,000 ML IV SCH (18:54)
[2017-12-08] MEDS: PANTOPRAZOLE INJ 80 MG in SODIUM CHLORIDE 0.9% INJ 100 ML IV SCH (19:23)
[2017-12-08 20:28] VITALS: BP 129/61; PULSE 76; RESP 18; TEMP 98.8; O2SAT 97
[2017-12-08 21:29] LABS: HEMATOCRIT 27.4 % (35.0-46.0); HEMOGLOBIN 9.4 GM/DL (11.6-15.3)
[2017-12-08] MEDS: HYDROmorphone HCL PF 2 MG/ML VIAL IV PUSH PRN (22:29)
[2017-12-09 00:28] VITALS: BP 120/57; PULSE 80; RESP 18; TEMP 98.4; O2SAT 93
[2017-12-09 03:44] LABS: AUTOMATED NEUTROPHIL # 7.5 TH/MM3 (1.8-7.7); BASOPHIL # 0.1 TH/MM3 (0-0.2); BASOPHIL % 0.5 % (0.0-2.0); EOSINOPHIL % 0.2 % (0.0-4.0); LYMPH % 12.4 % (9.0-44.0); LYMPHOCYTE # 1.7 TH/MM3 (1.0-4.8); MEAN CELL VOLUME 88.9 FL (80.0-100.0); MEAN CORPUSCULAR HEMOGLOBIN 29.5 PG (27.0-34.0); MEAN CORPUSCULAR HGB CONC 33.2 % (32.0-36.0); MEAN PLATELET VOLUME 8.7 FL (7.0-11.0); MONO % 33.6 % (0.0-8.0); MONOCYTE # 4.7 TH/MM3 (0-0.9); NEUT % 53.3 % (16.0-70.0); PLATELET COUNT 251 TH/MM3 (150-450); RED BLOOD COUNT 3.04 MIL/MM3 (4.00-5.30); RED CELL DISTRIBUTION WIDTH 14.4 % (11.6-17.2)
[2017-12-09 03:57] LABS: CALCIUM 8.4 MG/DL (8.5-10.1); CREATININE 0.57 MG/DL (0.50-1.00)
[2017-12-09 04:46] VITALS: BP 134/62; PULSE 76; RESP 18; TEMP 98.8; O2SAT 95
[2017-12-09] MEDS: PANTOPRAZOLE INJ 80 MG in SODIUM CHLORIDE 0.9% INJ 100 ML IV SCH ×2 (05:25→14:39)
[2017-12-09] MEDS ORDERED: CHLORHEXIDINE GLUCONATE 2 % 1 PACK (2 CLOTHS) TOPICAL PRN (07:45)
[2017-12-09] MEDS ORDERED: POVIDONE IODINE 5% (ANTISEPSIS KIT) 4 APPLICATIONS EACH NARE PRN (07:45)
[2017-12-09] MEDS ORDERED: LACTATED RINGER'S 1000 ML IV PRN (07:45)
[2017-12-09] MEDS ORDERED: METOPROLOL TARTRATE 25 MG TAB PO PRN (07:45)
[2017-12-09] MEDS ORDERED: SODIUM CHLORID 0.9% 500 ML IV PRN (07:45)
[2017-12-09 08:19] VITALS: BP 124/61; PULSE 78; RESP 18; TEMP 98.1; O2SAT 93
[2017-12-09] MEDS: ATENOLOL 25 MG TAB PO SCH ×2 (08:35→21:49)
[2017-12-09] MEDS: DOCUSATE SODIUM 100 MG CAP PO SCH ×2 (08:36→21:49)
[2017-12-09] MEDS: MAGNESIUM HYDROXIDE SUSP 30 ML CUP PO SCH (08:36)
[2017-12-09] MEDS: FERROUS SULFATE 325 MG (65 MG ELEMENTAL IRON) TAB PO SCH (08:36)
[2017-12-09] MEDS: SODIUM CHLORIDE 0.9% FLUSH 10 ML FLUSH IV FLUSH SCH ×2 (08:36→21:49)
[2017-12-09] MEDS: amLODIPine BESYLATE 5 MG TAB PO SCH (08:37)
[2017-12-09] MEDS: PRAVASTATIN SOD 40 MG TAB PO SCH (08:37)
[2017-12-09] MEDS: ASCORBIC ACID 500 MG TAB PO SCH (08:37)
--- NOTE | 2017-12-09 09:59 | HHI.FPPN ---
Subjective Remarks No acute events overnight. Vital signs remain stable overnight. Patient was nothing by mouth following an episode of dark brown emesis yesterday afternoon ( gastric occult positive) to see. No further episodes of emesis since that time. GI saw the patient and plans for EGD today. Hemoglobin remained stable. An NG tube was attempted to be placed chest today, but was advanced into the right bronchus and was unable to be placed in the stomach. Patient reporting less abdominal distention today despite this. No bowel movements (Gilbert Gilbert MD R1) Objective Vitals Vital Signs Date Time Temp Pulse Resp B/P (MAP) Pulse Ox O2 Delivery O2 Flow Rate FiO2 12/09/17 08:19 98.1 78 18 124/61 (82) 93 12/09/17 04:46 98.8 76 18 134/62 (86) 95 12/09/17 00:28 98.4 80 18 120/57 (78) 93 12/08/17 20:28 98.8 76 18 129/61 (83) 97 12/08/17 15:10 98.5 79 18 147/65 (92) 95 12/08/17 12:00 98.1 68 19 138/63 (88) 98 I/O 12/08/17 12/08/17 12/08/17 12/09/17 12/09/17 12/09/17 07:00 15:00 23:00 07:00 15:00 23:00 Intake Total 240 ml Output Total 350 ml 300 ml Balance -110 ml -300 ml Intake Oral 240 ml Output Urine Total 300 ml Emesis 350 ml # Voids 3 5 # Bowel Movements 3 0 (Gilbert Gilbert MD R1) Result Diagram: 12/09/17 0320 12/09/17 0320 Objective Remarks GENERAL: in NAD, no resp distress, nontoxic. Lying comfortably in bed. HEENT: NCAT, EOMI, no scleral icterus, no conjunctival injection. Hard of hearing. MMM. NECK: Supple, no meningeal signs. CV: RRR, S1 S2. 2/6 systolic murmur, unchanged. CHEST/PULM: CTAB, no crackles, no wheezes ABD/GI: Hypoactive bowel sounds, soft, nontender, nondistended on today's exam EXT: 2+ DP pulses. No edema. No calf tenderness. NEURO: Grossly nonfocal. Awake, alert. Able to wiggle toes. Normal muscle tone. SKIN: No rashes, no jaundice . No hematomas PSYCH: Mood and affect are appropriate. Does not appear to respond to internal stimuli. (Gilbert Gilbert MD R1) A/P Assessment and Plan 87-year-old female with past history of lumbar and thoracic fracture who presented for intractable back pain. During hospitalization, patient developed severe anemia, with hemoglobin 5.6, requiring 2U PRBCs. Had episode of dark brown emesis on 12/08, Gastroccult positive. GI planning for EGD on 12/09 Discharge Planning Anticipate discharge to SNF on Sunday (Gilbert Gilbert MD R1) Attending Attestation Patient seen and examined, discussed with resident team. I agree with assessment and management as documented and discussed with me. Hemoglobin stable. EGD today. PPI. Await further recs from GI. If stable, anticipate discharge to SNF tomorrow. (Marisela Loco MD) Problem List: (1) Hematemesis ICD Codes: K92.0 - Hematemesis Plan: Approximately 350 mL of dark brown emesis on 12/08, found to be Gastroccult positive Prior EGD from July 2017 significant for shallow ulcer in the antrum as well as ulcers in the gastric body H&H remained stable yesterday and through the night, hemoglobin 8.6 -> 10.0 -> 9.4 -> 9.0 GI consult that, planning for EGD on 12/09 Patient made nothing by mouth Every 6 hour H&H PPI drip (2) T11 vertebral fracture ICD Codes: S22.089A - Unspecified fracture of T11-T12 vertebra, initial encounter for closed fracture Status: Acute Plan: Initially presented for intractable back pain secondary to T11 fracture. Back pain improved. -Ibuprofen 400 mg by mouth every 6 hours as needed pain 1-2 -Roxicodone 5 mg by mouth every 4 hours as needed pain 3-5 -Roxicodone 10 mg by mouth every 4 hours as needed pain 6-10 -Dilaudid 0.5 IV every 3 hours for breakthrough pain -Narcan when necessary for respiratory depression Continue work with PT. (3) Anemia ICD Codes: D64.9 - Anemia, unspecified Status: Chronic Plan: (12/07/17) Hb: 5.6 --> 8.3 (12/07/17 post transfusion) --> 8.6 (12/08/17) --> 9.0 (12/09/17) Baseline (08/21) Hb: 8.0 Transfused 2 U PRBCs on 12/07/17 CC hematemesis as above Continue daily iron supplement Add daily vitamin C for iron absorption Hemoccult pending (4) Altered mental status ICD Codes: R41.82 - Altered mental status, unspecified Status: Resolved Plan: Secondary to administration of dilaudid and ativan. Now resolved. Possibly secondary to acute on chronic anemia. Continue conservative pain control See plan under anemia (5) Hypertension ICD Codes: I10 - Essential (primary) hypertension Status: Chronic Plan: History of hypertension. BP under good control. -Continue home medications. -atenolol 25 mg twice a day -Amlodipine 5 mg daily (6) Hyperlipidemia ICD Codes: E78.5 - Hyperlipidemia, unspecified Status: Chronic Plan: -Continue home medications. -Simvastatin 20 mg daily. (7) fen/ppx Status: Chronic Plan: Fluids: Normal saline at 42 mL/h Electrolytes: Electronic within normal limits today, replete as needed Nutrition: Nothing by mouth for EGD today GI prophylaxis: PPI drip DVT prophylaxis: Heparin on hold for possible upper GI bleed. Hemoglobin stable this AM. SCDs (Gilbert Gilbert MD R1) Problem Qualifiers (1) Hematemesis: Qualified Codes: K92.0 - Hematemesis (2) T11 vertebral fracture: Qualified Codes: S22.089D - Unspecified fracture of t11-T12 vertebra, subsequent encounter for fracture with routine healing (3) Hypertension: Qualified Codes: I10 - Essential (primary) hypertension (4) Hyperlipidemia: Qualified Codes: E78.5 - Hyperlipidemia, unspecified Gilbert Gilbert MD R1 Dec 09, 2017 09:59 Marisela Loco MD Dec 10, 2017 16:33
--- NOTE | 2017-12-09 10:19 | GIPROC ---
[facility] [address] [facility]. [facility], [address] EGD PROCEDURE REPORT EXAM DATE: 12/09/2017 PATIENT NAME: Kierra Lau MR #: [id number] BIRTHDATE: 1930 ATTENDING: Diana Nick MD ORDER #: [id number] BRIGADIER: Sergo Clements and Cuca Fraser STATUS: inpatient INDICATIONS: The patient is a 87 yr old female here for an EGD due to iron deficiency anemia PROCEDURE PERFORMED: EGD w/ biopsy MEDICATIONS: None and Per Anesthesia. TOPICAL ANESTHETIC: CONSENT: The patient understands the risks and benefits of the procedure and understands that these risks include, but are not limited to: sedation, allergic reaction, infection, perforation and/or bleeding. Alternative means of evaluation and treatment include, among others: physical exam, x-rays, and/or surgical intervention. The patient elects to proceed with this endoscopic procedure. medical equipment was checked for proper function. Hand hygiene and appropriate measures for infection prevention was taken. After the risks, benefits and alternatives of the procedure were thoroughly explained, Informed consent was verified, confirmed and timeout was successfully executed by the treatment team. The patient was anesthetized with topical anesthesia and the [employer] [id number] endoscope was introduced through the mouth and advanced to the second portion of the duodenum. Retroflexed views revealed a hiatal hernia The gastroscope was then slowly withdrawn and removed. ESOPHAGUS: There was LA Class D esophagitis noted. A biopsy was performed using cold forceps. Sample sent for histology. STOMACH: A single non-bleeding, deep, irregular shaped and clean-based ulcer ranging between 5-9mm in size with heaped up edges and surrounding edema was found in the prepyloric region of the stomach. Biopsies were taken at edge of the ulcer. DUODENUM: The duodenal mucosa appeared normal in the bulb and second portion of the duodenum. ADVERSE EVENTS: There were no complications. IMPRESSIONS: 1. There was LA Class D esophagitis noted; biopsy was performed 2. Single ulcer ranging between 5-9mm in size was found in the prepyloric region of the stomach; biopsies were taken 3. Normal duodenal mucosa in the bulb and second portion of the duodenum 4. Retroflexed views revealed a hiatal hernia RECOMMENDATIONS: 1. Await biopsy results. Biopsy results will not be ready for 7-10 days. If you don't hear from us in two weeks, call our office for biopsy results. 2. Anti-reflux regimen 3. Continue PPI 4. No treatment PATIENT CONDITION: stable DISPOSITION: Inpatient REPEAT EXAM: Return 2 months EGD pending biopsy results Diana Nick MD eSigned: Diana Nick MD 12/09/2017 10:19 AM cc: PATIENT NAME: Kierra Lau MR#: [id number]
[2017-12-09] MEDS ORDERED: DO NOT ADM ANY ANTICOAGULANT DRUGS PRN (10:25)
[2017-12-09] MEDS ORDERED: PROPOFOL 200 MG/20 ML AMP IV ONE (12:00)
[2017-12-09] MEDS ORDERED: LIDOCAINE HCL 1% PF 5 ML SYRINGE OTHER ONE (12:00)
--- NOTE | 2017-12-09 12:01 | EKG ---
Date Performed: 12/08/2017 Time Performed: 18:13:55 PTAGE: 87 years EKG: Sinus rhythm POSSIBLE LEFT ATRIAL ENLARGEMENT MARKED LEFT AXIS DEVIATION POSSIBLE LATERAL MYOCARDIAL INFARCTION , OF INDETERMINATE AGE ABNORMAL ECG Compared to PREVIOUS TRACING , heart rate is slower, there are no other findings of right bundle bran ch block, but there is some intraventricular conduction disturbance on this tracing. PREVIOUS TRACING : 08/09/2017 13.18 DOCTOR: Sánchez Boswell Interpretating Date/Time 12/09/2017 11:59:45
[2017-12-09 12:44] VITALS: BP 114/81; PULSE 62; RESP 18; TEMP 98.3; O2SAT 100
[2017-12-09] MEDS: SODIUM CHLOR 0.9% 1000 ML INJ 1,000 ML IV SCH (16:41)
[2017-12-09 16:47] VITALS: BP 133/61; PULSE 64; RESP 18; TEMP 98.6; O2SAT 99
[2017-12-09 16:53] LABS: HEMATOCRIT 27.5 % (35.0-46.0); HEMOGLOBIN 9.4 GM/DL (11.6-15.3)
[2017-12-09 20:42] VITALS: BP 127/62; PULSE 72; RESP 18; TEMP 98.9; O2SAT 97
[2017-12-09 21:16] LABS: HEMATOCRIT 25.4 % (35.0-46.0); HEMOGLOBIN 8.6 GM/DL (11.6-15.3)
[2017-12-10 00:32] VITALS: BP 142/66; PULSE 66; RESP 18; TEMP 98.6; O2SAT 100
[2017-12-10] MEDS: PANTOPRAZOLE INJ 80 MG in SODIUM CHLORIDE 0.9% INJ 100 ML IV SCH (03:02)
[2017-12-10 04:42] VITALS: BP 152/67; PULSE 66; RESP 18; TEMP 98.4; O2SAT 95
[2017-12-10 06:45] LABS: AUTOMATED NEUTROPHIL # 4.4 TH/MM3 (1.8-7.7); BASOPHIL % 0.4 % (0.0-2.0); EOSINOPHIL # 0.1 TH/MM3 (0-0.4); EOSINOPHIL % 0.6 % (0.0-4.0); HEMATOCRIT 25.6 % (35.0-46.0); HEMOGLOBIN 8.8 GM/DL (11.6-15.3); LYMPH % 14.5 % (9.0-44.0); LYMPHOCYTE # 1.4 TH/MM3 (1.0-4.8); MEAN CELL VOLUME 88.2 FL (80.0-100.0); MEAN CORPUSCULAR HEMOGLOBIN 30.4 PG (27.0-34.0); MEAN CORPUSCULAR HGB CONC 34.5 % (32.0-36.0); MEAN PLATELET VOLUME 8.5 FL (7.0-11.0); MONO % 39.6 % (0.0-8.0); MONOCYTE # 3.8 TH/MM3 (0-0.9); NEUT % 44.9 % (16.0-70.0); PLATELET COUNT 225 TH/MM3 (150-450); WHITE BLOOD COUNT 9.7 TH/MM3 (4.0-11.0)
[2017-12-10 07:05] LABS: BICARBONATE 27.2 MEQ/L (21.0-32.0); CALCIUM 8.1 MG/DL (8.5-10.1); CREATININE 0.48 MG/DL (0.50-1.00)
[2017-12-10] MEDS: FERROUS SULFATE 325 MG (65 MG ELEMENTAL IRON) TAB PO SCH (08:42)
[2017-12-10] MEDS: ASCORBIC ACID 500 MG TAB PO SCH (08:42)
[2017-12-10] MEDS: PRAVASTATIN SOD 40 MG TAB PO SCH (08:42)
[2017-12-10] MEDS: MAGNESIUM HYDROXIDE SUSP 30 ML CUP PO SCH (08:43)
[2017-12-10] MEDS: amLODIPine BESYLATE 5 MG TAB PO SCH (08:43)
[2017-12-10] MEDS: ATENOLOL 25 MG TAB PO SCH (08:43)
[2017-12-10] MEDS: DOCUSATE SODIUM 100 MG CAP PO SCH (08:44)
[2017-12-10] MEDS: SODIUM CHLORIDE 0.9% FLUSH 10 ML FLUSH IV FLUSH SCH (08:46)
[2017-12-10 08:53] VITALS: BP 130/60; PULSE 65; RESP 18; TEMP 98.7; O2SAT 94
[2017-12-10 08:56] LABS: ACANTHOCYTES OCC (NORMAL); OVALOCYTES 1+ (NORMAL)
[2017-12-10] MEDS ORDERED: PANTOPRAZOLE SOD 40 MG DELAYED RELEASE TAB PO SCH (09:00)
--- NOTE | 2017-12-10 11:51 | HHI.DCPOC ---
Discharge Care Plan Diagnosis: (1) T11 vertebral fracture (2) Hematemesis (3) Anemia Goals to Promote Your Health * To prevent worsening of your condition and complications * To maintain your health at the optimal level Directions to Meet Your Goals Take your medications as prescribed Follow your dietary instruction Follow activity as directed Keep your appointments as scheduled Take your immunizations and boosters as scheduled If your symptoms worsen call your PCP, if no PCP go to Urgent Care Center or Emergency Room Smoking is Dangerous to Your Health. Avoid second hand smoke Call the 24-hour hour crisis hotline for domestic abuse at Gilbert Gilbert MD R1 Dec 10, 2017 11:51
[2017-12-10] MEDS ORDERED: PANT40TA3 PO (11:53)
--- NOTE | 2017-12-10 11:59 | HHI.FPPN ---
Subjective Remarks Patient seen on rounds today. No acute events overnight. Vital signs are stable. Patient reports no further emesis overnight. She overall is feeling better, no complaints of chest pain, shortness of breath, abdominal pain. (Gilebrt Gilbert MD R1) Objective Vitals Vital Signs Date Time Temp Pulse Resp B/P (MAP) Pulse Ox O2 Delivery O2 Flow Rate FiO2 12/10/17 08:53 98.7 65 18 130/60 (83) 94 12/10/17 04:42 98.4 66 18 152/67 (95) 95 12/10/17 00:32 98.6 66 18 142/66 (91) 100 12/09/17 20:42 98.9 72 18 127/62 (83) 97 12/09/17 16:47 98.6 64 18 133/61 (85) 99 12/09/17 12:44 98.3 62 18 114/81 (92) 100 I/O 12/09/17 12/09/17 12/09/17 12/10/17 12/10/17 12/10/17 07:00 15:00 23:00 07:00 15:00 23:00 Output Total 300 ml 700 ml Balance -300 ml -700 ml Output Urine Total 300 ml 700 ml (Gilbert Gilbert MD R1) Result Diagram: 12/10/17 0612/10/17 06 Objective Remarks GENERAL: in NAD, no resp distress, nontoxic. Sitting up comfortably in chair. HEENT: NCAT, EOMI, no scleral icterus, no conjunctival injection. Hard of hearing. MMM. NECK: Supple, no meningeal signs. CV: RRR, S1 S2. 2/6 systolic murmur, unchanged. CHEST/PULM: CTAB, no crackles, no wheezes ABD/GI: Hypoactive bowel sounds, soft, nontender, nondistended on today's exam EXT: 2+ DP pulses. No edema. No calf tenderness. NEURO: Grossly nonfocal. Awake, alert. Able to wiggle toes. Normal muscle tone. SKIN: No rashes, no jaundice . No hematomas PSYCH: Mood and affect are appropriate. Does not appear to respond to internal stimuli. (Gilbert Gilbert MD R1) A/P Assessment and Plan 87-year-old female with past history of lumbar and thoracic fracture who presented for intractable back pain. During hospitalization, patient developed severe anemia, with hemoglobin 5.6, requiring 2U PRBCs. Had episode of dark brown emesis on 12/08, Gastroccult positive. EGD on 12/09 which showed class D esophagitis, single ulcer in the pyloric region. Biopsies taken. H&H remained stable and patient cleared from GI standpoint for discharge. Will follow with GI for biopsy results. Discharge Planning Anticipate discharge to SNF today (Gilbert Gilbert MD R1) Attending Attestation Patient seen, examined, and discussed with resident team. I agree with assessment and management as documented and discussed with me. Hemoglobin stable. Tolerating PO. Discharge to SNF today (Marisela Loco MD) Problem List: (1) Hematemesis ICD Codes: K92.0 - Hematemesis Plan: Approximately 350 mL of dark brown emesis on 12/08, found to be Gastroccult positive Prior EGD from July 2017 significant for shallow ulcer in the antrum as well as ulcers in the gastric body H&H remained stable following the episode, most recent hemoglobin 8.8 GI consulted - EGD on 12/09 which showed class D esophagitis, single ulcer in the pyloric region. Biopsies taken. Patient started on PPI drip Patient tolerating clear liquid diet GI cleared for discharge on 12/10, discharging on oral PPI twice daily Follow-up with GI after discharge for biopsy results, future EGD (2) T11 vertebral fracture ICD Codes: S22.089A - Unspecified fracture of T11-T12 vertebra, initial encounter for closed fracture Status: Acute Plan: Initially presented for intractable back pain secondary to T11 fracture. Back pain improved. Discharging on oxycodone 5 mg tablet every 4 hour as needed for pain Discharging to SNF for further PT (3) Anemia ICD Codes: D64.9 - Anemia, unspecified Status: Chronic Plan: (12/07/17) Hb: 5.6 --> 8.3 (12/07/17 post transfusion) Patient with one episode of hematemesis described as above. Hemoglobin has remained stable between 8 and 10 Baseline (08/21) Hb: 8.0 Transfused 2 U PRBCs on 12/07/17 See hematemesis as above Continue daily iron supplement Add daily vitamin C for iron absorption (4) Hypertension ICD Codes: I10 - Essential (primary) hypertension Status: Chronic Plan: History of hypertension. BP under good control. -Continue home medications. -atenolol 25 mg twice a day -Amlodipine 5 mg daily (5) Hyperlipidemia ICD Codes: E78.5 - Hyperlipidemia, unspecified Status: Chronic Plan: -Continue home medications. -Simvastatin 20 mg daily. (6) fen/ppx Status: Chronic Plan: Fluids: Discontinuing IV fluids Electrolytes: Electronic within normal limits today, replete as needed Nutrition: Clear liquid diet, will advance slowly GI prophylaxis: Starting PPI by mouth twice a day DVT prophylaxis: SCDs (Gilbert Gilbert MD R1) Problem Qualifiers (1) Hematemesis: Qualified Codes: K92.0 - Hematemesis (2) T11 vertebral fracture: Qualified Codes: S22.089D - Unspecified fracture of t11-T12 vertebra, subsequent encounter for fracture with routine healing (3) Hypertension: Qualified Codes: I10 - Essential (primary) hypertension (4) Hyperlipidemia: Qualified Codes: E78.5 - Hyperlipidemia, unspecified Gilbert Gilbert MD R1 Dec 10, 2017 11:59 Zulay Lovett MD Dec 10, 2017 16:41 Marisela Loco MD Dec 10, 2017 16:53
--- NOTE | 2017-12-10 11:59 | HHI.DS ---
Discharge Summary Admission Date Dec 07, 2017 at 08:33 Discharge Date: Dec 10, 2017 Admitting Diagnosis T11 compression fx (1) Hematemesis Plan: ICD Codes: K92.0 - Hematemesis (2) T11 vertebral fracture ICD Codes: S22.089A - Unspecified fracture of T11-T12 vertebra, initial encounter for closed fracture Status: Acute (3) Anemia ICD Codes: D64.9 - Anemia, unspecified Status: Chronic Brief History Patient is a 87-year-old female with past history of stroke, lumbar fracture, thoracic fracture presenting today for intractable back pain. At the time of examination the patient was responsive to verbal stimuli however would quickly fall sleep and could not answer complex questions. The patient's niece, Maura Matos, was present and provided significant amount of the subjective history in addition to chart review and communication with the ED physician. It is reported that the patient was seen in August by neurosurgery for lumbar fracture and was going to have a chondroplasty, however she was unable to do so at that time due to a stroke which occurred at that point. Following the stroke she was unable to have chondroplasty because "she was labeled high risk." She was then a patient at the alf [facility], and was sent home approximate 3 weeks ago. She began to have back pain and establish care with a new primary care physician on Sunday due to change in insurance. She was referred to a neurosurgeon who got x-rays which demonstrated a thoracic fracture. She was prescribed 50 mg tramadol which "did not touch the pain." The tramadol was increased to 100 mg and Tylenol with codeine was added as well as a "muscle relaxer" all of which did not relieve the pain. She was seen by a visiting nurse on the day of admission. Her pain was so significant that she was unable to get out of her chair. The visiting nurse recommended she go to the emergency room. Typically she walks assisted with a walker. Is reported that while she was in the ED she was lucid and able to speak clearly and concisely. She was given Dilaudid 2 mg by mouth, to minimal effect, then subsequently given Dilaudid 2 mg IM with an additional Ativan 2 mg IM. Following the administration she became somnolent and interacted as stated above. Other complaints voiced by the niece at this time are that the patient has been constipated for several days and she believes she has lost approximate 40 pound since her stroke. She believes that her aunt is eating well however her aunt lives alone and she only occasionally sees her. No other complaints today. CBC/BMP: 12/10/17 0605 12/10/17 0605 Significant Findings Laboratory Tests Test 12/07/17 14:21 12/08/17 05:20 12/08/17 15:38 12/08/17 21:00 Hemoglobin 8.3 GM/DL (11.6-15.3) 8.6 GM/DL (11.6-15.3) 10.0 GM/DL (11.6-15.3) 9.4 GM/DL (11.6-15.3) Hematocrit 23.4 % (35.0-46.0) 24.5 % (35.0-46.0) 29.3 % (35.0-46.0) 27.4 % (35.0-46.0) Red Blood Count 2.80 MIL/MM3 (4.00-5.30) 3.31 MIL/MM3 (4.00-5.30) Monocytes % 33 % (0-8) Ovalocytes 1+ (NORMAL) Total Protein 6.2 GM/DL (6.4-8.2) Albumin 2.7 GM/DL (3.4-5.0) Calcium Level 8.4 MG/DL (8.5-10.1) Sodium Level 133 MEQ/L (136-145) 133 MEQ/L (136-145) White Blood Count 12.5 TH/MM3 (4.0-11.0) Monocytes (%) (Auto) 35.8 % (0.0-8.0) Monocytes # (Auto) 4.5 TH/MM3 (0-0.9) Chloride Level 96 MEQ/L (98-107) Estimat Glomerular Filtration Rate 82 ML/MIN (>89) Test 12/09/17 03:20 12/09/17 16:37 12/09/17 21:00 12/10/17 06:05 White Blood Count 14.0 TH/MM3 (4.0-11.0) Red Blood Count 3.04 MIL/MM3 (4.00-5.30) 2.90 MIL/MM3 (4.00-5.30) Hemoglobin 9.0 GM/DL (11.6-15.3) 9.4 GM/DL (11.6-15.3) 8.6 GM/DL (11.6-15.3) 8.8 GM/DL (11.6-15.3) Hematocrit 27.0 % (35.0-46.0) 27.5 % (35.0-46.0) 25.4 % (35.0-46.0) 25.6 % (35.0-46.0) Monocytes (%) (Auto) 33.6 % (0.0-8.0) 39.6 % (0.0-8.0) Monocytes # (Auto) 4.7 TH/MM3 (0-0.9) 3.8 TH/MM3 (0-0.9) Calcium Level 8.4 MG/DL (8.5-10.1) 8.1 MG/DL (8.5-10.1) Sodium Level 135 MEQ/L (136-145) Ovalocytes 1+ (NORMAL) Acanthocytes OCC (NORMAL) Creatinine 0.48 MG/DL (0.50-1.00) Potassium Level 3.4 MEQ/L (3.5-5.1) PE at Discharge GENERAL: in NAD, no resp distress, nontoxic. Lying comfortably in bed. HEENT: NCAT, EOMI, no scleral icterus, no conjunctival injection. Hard of hearing. MMM. NECK: Supple, no meningeal signs. CV: RRR, S1 S2. 2/6 systolic murmur, unchanged. CHEST/PULM: CTAB, no crackles, no wheezes ABD/GI: Hypoactive bowel sounds, soft, nontender, nondistended on today's exam EXT: 2+ DP pulses. No edema. No calf tenderness. NEURO: Grossly nonfocal. Awake, alert. Able to wiggle toes. Normal muscle tone. SKIN: No rashes, no jaundice . No hematomas PSYCH: Mood and affect are appropriate. Does not appear to respond to internal stimuli. Hospital Course Patient was admitted after presenting with severe back pain secondary to vertebral fractures. It had been determined she was not a surgical candidate and would need pain control/outpatient rehabilitation. Pain was well controlled during hospital stay on Roxicodone 5 or 10 mg by mouth. Physical therapy also worked with the patient washes here. Of note, patient was incidentally found to be anemic with a hemoglobin of 5.6 on 12/07. Patient was transfused 2 units and hemoglobin was stabilized above 8.3 posttransfusion. On 12/08, patient had 1 episode of dark brown emesis (approximately 350 mL) which was found to be Gastroccult positive. Hemoglobin remained stable, and GI was consulted and performed EGD on 12/09 which showed class D esophagitis, single ulcer in the pyloric region. Biopsies taken. H&H remained stable over the next 24 hours. Patient was started on a PPI and GI recommended follow-up with them for biopsy results. GI and primary team felt patient was safe for discharge to SNF on 12/10 for rehabilitation secondary to the vertebral fractures. Repeat labs were ordered as an outpatient and she was scheduled to follow-up with GI. Pt Condition on Discharge: Stable Discharge Disposition: Discharge to SNF Discharge Instructions DIET: Follow Instructions for: As Tolerated, No Restrictions Activities you can perform: Weight Bearing as Yumiko Follow up Referrals: Gastroenterology - 2 Months with Donna Johnson PCP Follow-up - 1 Week New Orders: CBC WITH DIFF - 1 Week New Medications: Oxycodone (Oxycodone) 5 Mg Tab 5 MG PO Q4H PRN for PAIN SCALE 3 TO 5, #30 TAB Pantoprazole (Pantoprazole) 40 Mg Tab 40 MG PO Q12HR, #60 TAB Continued Medications: Amlodipine (Amlodipine) 5 Mg Tab 5 MG PO DAILY for Blood Pressure Management, #30 TAB [address] (Aspirin EC) 325 Mg Tabdr 325 MG PO DAILY for blood thinner, #30 TAB 0 Refills Atenolol (Atenolol) 25 Mg Tab 25 MG PO Q12HR for heart rate, #60 TAB 0 Refills Calcium Carbonate-Cholecalciferol (Calcium 500 +D) 500-400 Mg-Unit Tab 1 TAB PO DAILY for Calcium Supplement, TAB 0 Refills Cobalamine Combinations (Vitamin E22-Ijgbg Acid) 500-400 Mcg Tab 1 TAB PO DAILY for Nutritional Supplement, TAB 0 Refills Ferrous Sulfate (Iron) 325 Mg Cap 325 MG PO DAILY for Nutritional Supplement, #30 TAB 0 Refills Fish Oil-Cholecalciferol (Fish Oil + D3) 1,200-1,000 Mg-Unit Cap 1 CAP PO DAILY for Nutritional Supplement, #30 CAP 0 Refills Lidocaine Patch 12 HR (Lidocaine Patch 12 HR) 5 % Patch 1 PATCH TOPICAL DAILY PRN for PAIN, #1 BOX 1 Refill Remove patch after 12 hours Simvastatin (Simvastatin) 20 Mg Tab 20 MG PO DAILY for Cholesterol Management, #30 TAB 0 Refills Discontinued Medications: Omeprazole (Omeprazole) 20 Mg Tab 20 MG PO DAILY, #30 TAB 0 Refills Gilbert Gilbert MD R1 Dec 10, 2017 11:59
[2017-12-10 12:00] VITALS: BP 149/65; PULSE 56; RESP 18; TEMP 98.4; O2SAT 99
--- NOTE | 2017-12-10 12:49 | HHI.GIFU ---
Subjective Remarks Pt OOB in chair, eating clear liquid lunch. Reports no BM today, had milk of magnesia this morning. Denies nausea, vomiting, abdominal pain. Objective Vitals I&O Vital Signs Date Time Temp Pulse Resp B/P (MAP) Pulse Ox O2 Delivery O2 Flow Rate FiO2 12/10/17 09:50 18 12/10/17 08:53 98.7 65 18 130/60 (83) 94 12/10/17 04:42 98.4 66 18 152/67 (95) 95 12/10/17 00:32 98.6 66 18 142/66 (91) 100 12/09/17 20:42 98.9 72 18 127/62 (83) 97 12/09/17 16:47 98.6 64 18 133/61 (85) 99 12/09/17 12:44 98.3 62 18 114/81 (92) 100 I/O 12/09/17 12/09/17 12/09/17 12/10/17 12/10/17 12/10/17 07:00 15:00 23:00 07:00 15:00 23:00 Output Total 300 ml 700 ml Balance -300 ml -700 ml Output Urine Total 300 ml 700 ml Laboratory Laboratory Tests Test 12/09/17 16:37 12/09/17 21:00 12/10/17 06:05 Hemoglobin 9.4 8.6 8.8 Hematocrit 27.5 25.4 25.6 White Blood Count 9.7 Red Blood Count 2.90 Mean Corpuscular Volume 88.2 Mean Corpuscular Hemoglobin 30.4 Mean Corpuscular Hemoglobin Concent 34.5 Red Cell Distribution Width 15.0 Platelet Count 225 Mean Platelet Volume 8.5 Neutrophils (%) (Auto) 44.9 Lymphocytes (%) (Auto) 14.5 Monocytes (%) (Auto) 39.6 Eosinophils (%) (Auto) 0.6 Basophils (%) (Auto) 0.4 Neutrophils # (Auto) 4.4 Lymphocytes # (Auto) 1.4 Monocytes # (Auto) 3.8 Eosinophils # (Auto) 0.1 Basophils # (Auto) 0.0 CBC Comment AUTO DIFF Differential Comment AUTO DIFF CONFIRMED Ovalocytes 1+ Acanthocytes OCC Blood Urea Nitrogen 12 Creatinine 0.48 Random Glucose 92 Calcium Level 8.1 Sodium Level 137 Potassium Level 3.4 Chloride Level 102 Carbon Dioxide Level 27.2 Anion Gap 8 Estimat Glomerular Filtration Rate 122 Date/Time Source Procedure Growth Status 12/08/17 15:00 Gastric Gastric Occult Blood - Final GASTROCCULT POSITIVE Complete Imaging Last Impressions Chest X-Ray 12/08/[id number] Signed Impressions: Service Date/Time: Friday, December 08, 2017 17:34 - CONCLUSION: The NG tube is in the right lower lobe bronchus and needs to be withdrawn. Dev Driscoll MD ADDENDUM: Findings were discussed with Talia patient's nurse on 12/08/2017 at 17:55 hours. Dev Driscoll MD Abdomen X-Ray [id number]/08/[id number] Signed Impressions: Service Date/Time: Friday, December 08, 2017 17:36 - CONCLUSION: Tip of the NG tube is in the right lower lobe bronchus and needs to be withdrawn. Findings reported to be Talia the patient's nurse on 12/08/2017 17:55 hours. Dev Driscoll MD Physical Exam HEENT: Normocephalic; atraumatic; no jaundice CHEST: Even/unlabored. 2 L O2 via NC CARDIAC: RRR ABDOMEN: Lumbar sacral orthosis on at time of exam EXTREMITIES: No clubbing, cyanosis, or edema. SKIN: Normal; no rash; no jaundice. FISH FLIPPER: No focal deficits; alert and oriented times three. Assessment and Plan Plan - Acute upper GI bleed- hx of gastric ulcer in 2015, patient on ASA for stroke, NSAIDs as needed. 350 ml of coffee ground emesis reported at 2 pm abd distended, NGT ordered. EGD on 03/08/17gastritis, esophagitis- short segment of Dunn's, small hiatal hernia, bx benign. EGD/colonoscopy on 07/28/17 showed clean base ulcer in antrum, few small ulcers in gastric body in hiatal hernia , esophagitis, hiatal hernia, diverticulosis sigmoid, descending polyps diminutive in sigmoid cold bx with complete removal, internal and external hemorrhoids bx showed negative for celiac or H-pylori Dunn and benign polyps - Vertebral fracture per attending - HTN, Hyperlipemia per attending (2/5) S/P EGD yesterday --> Class D esophagitis, single ulcer ranging between 5- 9 mm in size was found in the prepyloric region of the stomach, normal duodenum, hiatal hernia. Recommendations to repeat EGD in 2 months. Biopsy pending. H/H remains stable, currently 8.8/25.6, pt was last transfused three days ago. No obvious continuation of GIB. Pt denies BM today and emesis. Plan: - Continue Protonix - Advance diet - Monitor H/H - EGD biopsy pending - Pt is stable from GI standpoint, will sign off, please reconsult as needed - Pt to follow up in office after discharge for biopsy results Pt has been seen and examined by myself and Dr. Lovett and this note is written on her behalf Mishel Robbins Dec 10, 2017 12:49
== END 2017-12-10 15:00 | DRG 552 ==
LOC: NEPD 17:03 → NEDA 22:46 → NEPHCDU 12-06 00:43 → OBSVTOIN 12-07 08:33 → N05B 12-07 16:23
PROVIDERS: ADMIT Family Medicine; ATTEND Family Medicine
PROC: 30233N1 Transfusion of Nonautologous Red Blood Cells into Peripheral Vein, Percutaneous Approach (ICD-10-PCS; principal; 2017-12-07)
PROC: 0D9670Z Drainage of Stomach with Drainage Device, Via Natural or Artificial Opening (ICD-10-PCS; 2017-12-08)
PROC: 0DB58ZX Excision of Esophagus, Via Natural or Artificial Opening Endoscopic, Diagnostic (ICD-10-PCS; 2017-12-09)
PROC: 0DB78ZX Excision of Stomach, Pylorus, Via Natural or Artificial Opening Endoscopic, Diagnostic (ICD-10-PCS; 2017-12-09)
DX: S22.080A Wedge compression fracture of T11-T12 vertebra, initial encounter for closed fracture (principal); K92.0 Hematemesis; D64.9 Anemia, unspecified; I10 Essential (primary) hypertension; E78.5 Hyperlipidemia, unspecified; H40.9 Unspecified glaucoma; H91.92 Unspecified hearing loss, left ear; Z53.20 Procedure and treatment not carried out because of patient's decision for unspecified reasons; K44.9 Diaphragmatic hernia without obstruction or gangrene; K21.0 Gastro-esophageal reflux disease with esophagitis; K25.9 Gastric ulcer, unspecified as acute or chronic, without hemorrhage or perforation; K22.70 Barrett's esophagus without dysplasia; K57.30 Diverticulosis of large intestine without perforation or abscess without bleeding; K59.00 Constipation, unspecified; T40.2X5A Adverse effect of other opioids, initial encounter; T42.4X5A Adverse effect of benzodiazepines, initial encounter; R40.0 Somnolence; Z86.73 Personal history of transient ischemic attack (TIA), and cerebral infarction without residual deficits; S32.000D Wedge compression fracture of unspecified lumbar vertebra, subsequent encounter for fracture with routine healing; Z87.11 Personal history of peptic ulcer disease; Z87.891 Personal history of nicotine dependence
CPT/HCPCS: 36430; 71045; 74019; 80048; 80053; 80307; 81001; 82270; 82306; 82728; 83540; 83550; 84466; 85007; 85014; 85018; 85025; 85027; 85044; 86850; 86900; 86901; 86920; 88305; 88312; 93005; 96372; C9113; G0378; G8987-GP; G8988-GP; J1170; J1644; J2060; J2405; J7030; J7050; P9016